=== PATIENT | male | born 1930 | race African-American/Black ===

== ENCOUNTER 2016-07-25 18:01 | Emergency (ER) | payer MEDICARE ==
--- NOTE | 2016-07-25 18:07 | ER Document Report ---
ED Medical Screen (RME) - General Stated Complaint: URINARY ISSUE Mode of Arrival: Ambulatory Information source: Patient Notes: Patient presents with c/o hematuria, groin pain, cough. Reports vomiting at night. History of HTN. Niece reports large amount of blood on toilet seat and this am had blood on his pants. Patient points to groin area when asked where he is hurting. I have greeted and performed a rapid initial assessment of this patient. A comprehensive ED assessment and evaluation of the patient, analysis of test results and completion of the medical decision making process will be conducted by additional ED providers.
[2016-07-25 18:45] LABS: ABSOLUTE LYMPHOCYTES (AUTO) 0.9 10^3/uL (0.5-4.7); ABSOLUTE MONOCYTES (AUTO) 0.8 10^3/uL (0.1-1.4); ABSOLUTE NEUT (AUTO) 11.8 10^3/uL (1.7-8.2); BASOPHILS % (AUTO) 0.2 % (0-2); HEMATOCRIT 35.6 % (37.9-51.0); HEMOGLOBIN 12.2 g/dL (13.5-17.0); LYMPHOCYTES % (AUTO) 6.4 % (13-45); MEAN CORPUSCULAR HEMOGLOBIN 30.3 pg (27.0-33.4); MEAN CORPUSCULAR HGB CONC 34.2 g/dL (32.0-36.0); MEAN CORPUSCULAR VOLUME 89 fl (80-97); MONOCYTES % (AUTO) 6.1 % (3-13); RED BLOOD COUNT 4.03 10^6/uL (4.35-5.55); RED CELL DISTRIBUTION WIDTH 16.2 % (11.5-14.0); SEGMENTED NEUTROPHILS % (AUTO) 87.3 % (42-78); WHITE BLOOD COUNT 13.5 10^3/uL (4.0-10.5)
[2016-07-25 18:59] LABS: ALANINE AMINOTRANSFERASE 23 U/L (21-72); ALBUMIN 3.8 g/dL (3.5-5.0); ALKALINE PHOSPHATASE 80 U/L (38-126); ASPARTATE AMINO TRANSFERASE 39 U/L (17-59); BILIRUBIN,TOTAL 1.4 mg/dL (0.2-1.3); BLOOD UREA NITROGEN 49 mg/dL (7-20); CALCIUM 8.6 mg/dL (8.4-10.2); CARBON DIOXIDE 23 mmol/L (22-30); CHLORIDE 105 mmol/L (98-107); CREATININE RESULT 6.36 mg/dL (0.52-1.25); GLUCOSE 133 mg/dL (75-110); POTASSIUM 4.2 mmol/L (3.6-5.0); SODIUM 149.7 mmol/L (137-145); TOTAL PROTEIN 7.7 g/dL (6.3-8.2)
[2016-07-25 19:00] LABS: ANION GAP 22 (5-19)
[2016-07-25] MEDS ORDERED: NORMAL SALINE 1000 ML 1,000 ML IV ONE (19:18)
[2016-07-25] MEDS ORDERED: IPRATROPIUM/ALBUTEROL 0.5-2.5 MG/3 ML AMPUL NEB ONE (19:21)
--- NOTE | 2016-07-25 19:23 | ER Document Report ---
ED General - General Chief Complaint: Urinary Problem Stated Complaint: URINARY ISSUE Time seen by provider: 19:10 Mode of Arrival: Ambulatory Notes: Patient is an 85-year-old male that comes emergency department with chief complaint of blood in his urine, patient complains of lower abdominal pain, patient states he has not had anything to eat or drink for the past 2 days because he didn't feel good. Gypsyece at bedside also states that patient has been complaining of coughing and difficulty breathing since last night. Patient denies any chest pain or current shortness of breath. Niece also states that patient's primary care provider called him on Tuesday and informed them that he should drink more water because his "kidney tests were abnormal". He states that patient lives with them, states that he is supposed to be on Xarelto and amlodipine, he states he is taking the medications that she is unsure. She states that patient is refusing to let them they've him or take care of him recently. TRAVEL OUTSIDE OF THE [place] IN LAST 30 DAYS: No - Related Data Allergies/Adverse Reactions: No Known Allergies Allergy (Verified 07/25/16 23:47) Past Medical History - General Information source: Patient - Social History Smoking Status: Never Smoker Frequency of alcohol use: None Drug Abuse: None Lives with: Family Family History: Reviewed & Not Pertinent - Past Medical History Cardiac Medical History: Reports: Hx Coronary Artery Disease, Hx Hypertension Renal/ Medical History: Denies: Hx Peritoneal Dialysis Review of Systems - Review of Systems Constitutional: See HPI EENT: No symptoms reported Cardiovascular: No symptoms reported Respiratory: See HPI Gastrointestinal: See HPI Genitourinary: See HPI Male Genitourinary: No symptoms reported Musculoskeletal: No symptoms reported Skin: No symptoms reported Hematologic/Lymphatic: No symptoms reported Neurological/Psychological: No symptoms reported Physical Exam - Vital signs Vitals: Temp Pulse Resp BP Pulse Ox 97.8 F 102 H 20 127/81 H 98 07/25/16 18:07 07/25/16 18:07 07/25/16 18:07 07/25/16 18:07 07/25/16 18:07 Interpretation: Normal - General General appearance: Anxious In distress: Mild - Patient appears somewhat uncomfortable - HEENT Head: Normocephalic, Atraumatic Eyes: Normal Conjunctiva: Normal Extraocular movements intact: Yes Eyelashes: Normal Pupils: PERRL Nasal: Normal Mouth/Lips: Normal Mucous membranes: Normal Pharynx: Normal Neck: Normal - Respiratory Respiratory status: No respiratory distress Chest status: Nontender Breath sounds: Normal. No: Decreased air movement, Wheezing Chest palpation: Normal - Cardiovascular Rhythm: Regular, Tachycardia - Borderline Heart sounds: Normal auscultation, S1 appreciated, S2 appreciated Murmur: No - Abdominal Inspection: Normal Distension: Distended Bowel sounds: Normal Tenderness: Tender - Patient is tender with some distention over the lower mid abdomen, otherwise abdominal exam is unremarkable, there is no significant guarding pain or guarding Organomegaly: No organomegaly - Genitourinary Inspection: Other - When I removed patient's pants I noted that there is blood in his underwear, there does not appear to be any sign of trauma over the penis or scrotum, external exam of the inguinal and genital region unremarkable otherwise - Back Back: Nontender. No: Tender, CVA tenderness, Vertebra tenderness - Extremities General upper extremity: Normal inspection, Nontender, Normal strength, Normal temperature General lower extremity: Normal inspection, Nontender, Normal strength, Normal temperature - Neurological Neuro grossly intact: Yes Cognition: Normal Orientation: AAOx4 Rich Coma Scale Eye Opening: Spontaneous Rich Coma Scale Verbal: Oriented Rich Coma Scale Motor: Obeys Commands Rich Coma Scale Total: 15 Speech: Normal Motor strength normal: LUE, RUE, LLE, RLE Sensory: Normal - Psychological Associated symptoms: Normal affect, Normal mood - Skin Skin Temperature: Warm Skin Moisture: Dry Skin Color: Normal Course - Re-evaluation Re-evalutation: Patient with mildly distended and significantly tender lower abdomen. Patient did give small amount of urine, shows large amount of blood cells and red blood cells. Mild leukocytosis at 13.5, patient mildly tachycardic, no fever, no hypotension. EKG shows P waves, somewhat irregular, no T-wave inversion or ST segment change in consecutive leads, patient not complaining of chest pain, troponin is elevated but patient is in acute renal failure. Chest x-ray is clear. Chemistry shows acute renal failure suspected (unsure of previous labs but family deny hx of renal disease). CT pending. CT shows obstructive uropathy with bladder calculi, enlarged prostate, bilateral hydronephrosis and hydroureter. Patient has been given Rocephin, giving Levaquin as well, patient was discussed with Dr. Perez. Recommends transfer to facility with urology coverage, we have no coverage for the next couple of days. I was able to personally place a 12 Japanese coud Berry catheter, a few blood clots past, very large output of urine which is dark in color. Additional culture sent. 07/26/16 11:15 Discussed with family and patient, they specifically request [facility] transfer. Patient is much more comfortable now, resting calmly, not tachycardic. Called transfer center, pending call back. Discussed with Dr. Post, patient will be accepted in transfer, accepting physician will be Dr. Kirk. 07/26/16 02:13 Patient reevaluated at bedside, no current complaints, states he still feels much improved, blood pressure and heart rate in normal ranges. Stable for transfer. - Vital Signs Vital signs: Temp Pulse Resp BP Pulse Ox 99.5 F 91 16 119/79 98 07/26/16 02:07 07/26/16 01:30 07/26/16 02:01 07/26/16 02:01 07/26/16 02:02 - Laboratory Result Diagrams: 07/25/16 18:25 07/25/16 18:25 Laboratory results interpreted by me: 07/25/16 07/25/16 07/25/16 18:25 18:25 18:25 WBC 13.5 H RBC 4.03 L Hgb 12.2 L Hct 35.6 L RDW 16.2 H Seg Neutrophils % 87.3 H Lymphocytes % 6.4 L Absolute Neutrophils 11.8 H Sodium 149.7 H Anion Gap 22 H BUN 49 H Creatinine 6.36 H Est GFR ( Amer) 10 L Est GFR (Non-Af Amer) 8 L Glucose 133 H Total Bilirubin 1.4 H Creatine Kinase Urine Protein 100 H Urine Blood LARGE H Ur Leukocyte Esterase LARGE H 07/25/16 18:25 WBC RBC Hgb Hct RDW Seg Neutrophils % Lymphocytes % Absolute Neutrophils Sodium Anion Gap BUN Creatinine Est GFR ( Amer) Est GFR (Non-Af Amer) Glucose Total Bilirubin Creatine Kinase 247 H Urine Protein Urine Blood Ur Leukocyte Esterase Critical Care Note - Critical Care Note Total time excluding time spent on procedures (mins): 34 - obstructive uropathy , acute renal failure, urinary tract infection, tachycardia Comments: Please allow 34 minutes of critical care time excluding any procedures for evaluation and treatment of patient with obstructive uropathy, acute renal failure, urinary tract infection, tachycardia. Treatment with antibiotics, fluids, discussion with family, multiple re-evaluations, consultation and transfer to tertiary care center. Discharge - Discharge Clinical Impression: Urinary (tract) obstruction Abdominal pain Qualifiers: Abdominal location: lower abdomen, unspecified Qualified Code(s): R10.30 - Lower abdominal pain, unspecified Acute renal failure Qualifiers: Acute renal failure type: unspecified Qualified Code(s): N17.9 - Acute kidney failure, unspecified Urinary tract infection Qualifiers: Urinary tract infection type: site unspecified Hematuria presence: with hematuria Qualified Code(s): N39.0 - Urinary tract infection, site not specified Condition: Stable Disposition: [facility] Referrals: JENA BUTLER PA-C [Primary Care Provider] - Follow up as needed
[2016-07-25 19:44] LABS: AMORPHOUS SEDIMENT,URINE TRACE /HPF; APPEARANCE,URINE CLOUDY; BILIRUBIN,URINE NEGATIVE (NEGATIVE); GLUCOSE, URINE NEGATIVE (NEGATIVE); KETONES,URINE NEGATIVE (NEGATIVE); LEUKOCYTE ESTERASE,URINE LARGE (NEGATIVE); NITRITE,URINE NEGATIVE (NEGATIVE); PROTEIN,URINE 100 mg/dL (NEGATIVE); URINE SPECIFIC GRAVITY 1.005; UROBILINOGEN,URINE NEGATIVE mg/dL (<2.0)
--- NOTE | 2016-07-25 20:19 | EKG REPORT ---
SEVERITY:- ABNORMAL ECG - SINUS RHYTHM CONSIDER ANTEROSEPTAL INFARCT : Confirmed by: Danielle Cullen 25-Jul-2016 20:19:18
[2016-07-25] MEDS ORDERED: CEFTRIAXONE 1 GM/D5W RTU 50 ML IV ONE (21:16)
[2016-07-25] MEDS ORDERED: LEVOFLOXACIN 750 MG/D5W RTU 150 ML IV ONE (22:21)
[2016-07-25] MEDS ORDERED: LIDOCAINE 2% URO-JET 5 ML KIT MM ONE (22:26)
[2016-07-26] MEDS ORDERED: NORMAL SALINE 1000 ML 1,000 ML IV PRN (01:25)
[2016-07-26 02:07] VITALS: BP 119/79
== END 2016-07-26 02:28 | disposition short-term general hospital (02) ==
LOC: ER 18:01
DX: N13.9 Obstructive and reflux uropathy, unspecified (principal); N39.0 Urinary tract infection, site not specified; N17.9 Acute kidney failure, unspecified; R39.198 Other difficulties with micturition; R10.30 Lower abdominal pain, unspecified
CPT/HCPCS: 93005; 94640; 99291; 96361; 51702; 96365; 96367; 36415; 87040; 87086; 82553; 82550; 84300; 85025; 87088; 80053; 81001; 84484; 87186; 71020; 74176; 93010; J7030 ×2; J0696; J1956; A9270 ×2; J3490; J7620

== ENCOUNTER 2016-08-15 16:49 | Inpatient (IN) | payer MEDICARE ==
[2016-08-15] MEDS ORDERED: LIDOCAINE 2% URO-JET 5 ML KIT MM ONE (17:03)
--- NOTE | 2016-08-15 17:14 | ER Document Report ---
ED GI/ - General Chief Complaint: Urinary Problem Stated Complaint: KILLIAN PROBLEM Mode of Arrival: Medic Information source: Outside Facility Records Cannot obtain history due to: Dementia Notes: Patient was found by nursing staff at [facility] after pulling out his Killian catheter. They noticed some blood to his diaper and swelling to his penis. Patient has a history of dementia. TRAVEL OUTSIDE OF THE [place] IN LAST 30 DAYS: No - HPI Patient complains to provider of: Killian catheter problem. No: Vomiting Onset: This morning Pain Level: 3 Location: Other - Penis Associated symptoms: Hematuria, Urinary retention. denies: Blood in emesis, Blood in stool, Fever, Nausea, Vomiting Exacerbated by: Denies Relieved by: Denies Recently seen / treated by doctor: Yes - Related Data Allergies/Adverse Reactions: tape Adverse Reaction (Uncoded 08/15/16 17:00) Past Medical History - General Information source: Transfer Record Cannot obtain history due to: Dementia - Social History Smoking Status: Never Smoker Frequency of alcohol use: None Drug Abuse: None Lives with: [facility] Family History: Reviewed & Not Pertinent - Medical History Medical History: Other - Dementia - Past Medical History Cardiac Medical History: Reports: Hx Atrial Fibrillation, Hx Coronary Artery Disease, Hx Hypercholesterolemia, Hx Hypertension Renal/ Medical History: Reports: Hx Benign Prostatic Hyperplasia. Denies: Hx Peritoneal Dialysis Review of Systems - Review of Systems -: Yes ROS unobtainable due to patient's medical condition - History of dementia Physical Exam - Vital signs Vitals: Temp Pulse Resp BP Pulse Ox 97.7 F 67 18 146/95 H 100 08/15/16 17:11 08/15/16 17:11 08/15/16 17:11 08/15/16 17:11 08/15/16 17:11 - General General appearance: Alert In distress: Mild - HEENT Head: Normocephalic, Atraumatic Nasal: Normal Mouth/Lips: Normal Mucous membranes: Normal Neck: Normal, Supple. No: Lymphadenopathy - Respiratory Respiratory status: No respiratory distress Chest status: Nontender Breath sounds: Normal Chest palpation: Normal - Cardiovascular Rhythm: Regular Heart sounds: S1 appreciated, S2 appreciated Murmur: No - Abdominal Inspection: Other - Some abdominal distention Distension: Distended Bowel sounds: Normal Tenderness: Nontender - Genitourinary Inspection: Blood at meatus, Other - Penile swelling Scrotum: Swelling - Extremities General upper extremity: Edema - 1+, Normal strength General lower extremity: Edema - 2-3+, Normal strength - Neurological Cognition: Confused Rich Coma Scale Eye Opening: Spontaneous [place] Coma Scale Verbal: Confused Rich Coma Scale Motor: Obeys Commands [place] Coma Scale Total: 14 - Skin Skin Temperature: Warm Skin Color: Pale Irregularity with: Weeping - To bilateral ankles Course - Re-evaluation Re-evalutation: 08/15/16 17:[address] Louis regarding patient presentation and diagnostic evaluation. 08/15/16 19:[address] Louis regarding patient's H&H. Hemoccult obtained. Additional labs ordered. Dr. Louis advises placing patient on Zosyn and Levaquin to treat for likely right lower lobe pneumonia due to new effusion noted on chest film that was not present there at his previous ER visit 2 weeks ago. 08/15/16 19:43 Bedside report and handoff given to Francisco Mir [employer]IAN - Vital Signs Vital signs: Temp Pulse Resp BP Pulse Ox 97.7 F 67 18 146/95 H 98 08/15/16 17:11 08/15/16 17:11 08/15/16 17:11 08/15/16 17:11 08/15/16 19:18 - Laboratory Result Diagrams: 08/15/16 18:43 08/15/16 18:43 Laboratory results interpreted by me: 08/15/16 08/15/16 17:30 18:43 RBC 2.50 L Hgb 7.9 L Hct 22.6 L RDW 16.5 H Urine Protein 30 H Urine Blood LARGE H Ur Leukocyte Esterase LARGE H Labs- Entire Visit 08/15/16 08/15/16 08/15/16 17:30 18:43 18:43 WBC 9.3 RBC 2.50 L Hgb 7.9 L Hct 22.6 L MCV 91 MCH 31.6 MCHC 34.9 RDW 16.5 H Plt Count 232 Seg Neutrophils % 75.0 Lymphocytes % 14.6 Monocytes % 8.6 Eosinophils % 1.2 Basophils % 0.6 Absolute Neutrophils 7.0 Absolute Lymphocytes 1.4 Absolute Monocytes 0.8 Absolute Eosinophils 0.1 Absolute Basophils 0.1 Sodium Cancelled Potassium Cancelled Chloride Cancelled Carbon Dioxide Cancelled Anion Gap Cancelled BUN Cancelled Creatinine Cancelled Est GFR ( Amer) Cancelled Est GFR (Non-Af Amer) Cancelled Glucose Cancelled Calcium Cancelled Total Bilirubin Cancelled Direct Bilirubin Cancelled Indirect Bilirubin Cancelled Neonat Total Bilirubin Cancelled AST Cancelled ALT Cancelled Alkaline Phosphatase Cancelled NT-Pro-B Natriuret Pep Total Protein Cancelled Albumin Cancelled Urine Color YELLOW Urine Appearance SLIGHTLY-CLOUDY Urine pH 6.0 Ur Specific [place] 1.009 Urine Protein 30 H Urine Glucose (UA) NEGATIVE Urine Ketones NEGATIVE Urine Blood LARGE H Urine Nitrite NEGATIVE Urine Bilirubin NEGATIVE Urine Urobilinogen NEGATIVE Ur Leukocyte Esterase LARGE H Urine WBC (Auto) 45 Urine RBC (Auto) >182 Urine Bacteria (Auto) TRACE Squamous Epi Cells Auto <1 Urine Mucus (Auto) RARE Urine Ascorbic Acid NEGATIVE 08/15/16 18:43 WBC RBC Hgb Hct MCV MCH MCHC RDW Plt Count Seg Neutrophils % Lymphocytes % Monocytes % Eosinophils % Basophils % Absolute Neutrophils Absolute Lymphocytes Absolute Monocytes Absolute Eosinophils Absolute Basophils Sodium Potassium Chloride Carbon Dioxide Anion Gap BUN Creatinine Est GFR ( Amer) Est GFR (Non-Af Amer) Glucose Calcium Total Bilirubin Direct Bilirubin Indirect Bilirubin Neonat Total Bilirubin AST ALT Alkaline Phosphatase NT-Pro-B Natriuret Pep Cancelled Total Protein Albumin Urine Color Urine Appearance Urine pH Ur Specific [place] Urine Protein Urine Glucose (UA) Urine Ketones Urine Blood Urine Nitrite Urine Bilirubin Urine Urobilinogen Ur Leukocyte Esterase Urine WBC (Auto) Urine RBC (Auto) Urine Bacteria (Auto) Squamous Epi Cells Auto Urine Mucus (Auto) Urine Ascorbic Acid
[2016-08-15 17:45] LABS: APPEARANCE,URINE SLIGHTLY-CLOUDY; BILIRUBIN,URINE NEGATIVE (NEGATIVE); GLUCOSE, URINE NEGATIVE (NEGATIVE); KETONES,URINE NEGATIVE (NEGATIVE); LEUKOCYTE ESTERASE,URINE LARGE (NEGATIVE); NITRITE,URINE NEGATIVE (NEGATIVE); PROTEIN,URINE 30 mg/dL (NEGATIVE); URINE SPECIFIC GRAVITY 1.009; UROBILINOGEN,URINE NEGATIVE mg/dL (<2.0)
[2016-08-15 18:59] LABS: ABSOLUTE BASOPHILS # (AUTO) 0.1 10^3/uL (0.0-0.2); ABSOLUTE EOSINOPHILS # (AUTO) 0.1 10^3/uL (0.0-0.6); ABSOLUTE LYMPHOCYTES (AUTO) 1.4 10^3/uL (0.5-4.7); ABSOLUTE MONOCYTES (AUTO) 0.8 10^3/uL (0.1-1.4); BASOPHILS % (AUTO) 0.6 % (0-2); EOSINOPHILS % (AUTO) 1.2 % (0-6); HEMATOCRIT 22.6 % (37.9-51.0); HEMOGLOBIN 7.9 g/dL (13.5-17.0); HGB HCT DIFFERENCE 1.1; LYMPHOCYTES % (AUTO) 14.6 % (13-45); MEAN CORPUSCULAR HEMOGLOBIN 31.6 pg (27.0-33.4); MEAN CORPUSCULAR HGB CONC 34.9 g/dL (32.0-36.0); MEAN CORPUSCULAR VOLUME 91 fl (80-97); MONOCYTES % (AUTO) 8.6 % (3-13); RED CELL DISTRIBUTION WIDTH 16.5 % (11.5-14.0); WHITE BLOOD COUNT 9.3 10^3/uL (4.0-10.5)
[2016-08-15] MEDS ORDERED: LEVOFLOXACIN 500 MG/D5W RTU 100 ML IV ONE (19:35)
[2016-08-15] MEDS ORDERED: PIPERACILLIN/TAZOBACTAM 3.375 GM VIAL IV ONE (19:35)
[2016-08-15 19:56] LABS: ALANINE AMINOTRANSFERASE 66 U/L (21-72); ALBUMIN 2.9 g/dL (3.5-5.0); ALKALINE PHOSPHATASE 129 U/L (38-126); ANION GAP 15 (5-19); ASPARTATE AMINO TRANSFERASE 33 U/L (17-59); BILIRUBIN,DIRECT 0.3 mg/dL (0.0-0.4); BILIRUBIN,TOTAL 0.6 mg/dL (0.2-1.3); BLOOD UREA NITROGEN 19 mg/dL (7-20); CALCIUM 8.6 mg/dL (8.4-10.2); CARBON DIOXIDE 22 mmol/L (22-30); CHLORIDE 103 mmol/L (98-107); CREATININE RESULT 0.86 mg/dL (0.52-1.25); GLUCOSE 95 mg/dL (75-110); POTASSIUM 4.6 mmol/L (3.6-5.0); SODIUM 140.1 mmol/L (137-145); TOTAL PROTEIN 6.2 g/dL (6.3-8.2)
[2016-08-15 19:57] LABS: PARTIAL THROMBOPLASTIN TIME 28.8 SEC (23.5-35.8); PROTHROMBIN TIME 14.1 SEC (11.4-15.4)
--- NOTE | 2016-08-15 21:14 | EKG REPORT ---
SEVERITY:- ABNORMAL ECG - SINUS RHYTHM FIRST DEGREE AV BLOCK LOW VOLTAGE IN FRONTAL LEADS CONSIDER ANTEROSEPTAL INFARCT BORDERLINE PROLONGED QT INTERVAL : Confirmed by: Emily Nunez MD 15-Aug-2016 21:12:23
[2016-08-15] MEDS ORDERED: FUROSEMIDE INJ/PF 40 MG/4 ML SDV IV ONE (21:32)
[2016-08-15] MEDS ORDERED: FUROSEMIDE INJ/PF 20 MG/2 ML SDV IV ONE (21:32)
[2016-08-15] MEDS ORDERED: LACTULOSE SYRUP 20 GM/30 ML UDCUP PO ONE (21:32)
[2016-08-15] MEDS ORDERED: LACTULOSE SYRUP 20 GM/30 ML UDCUP PR ONE (21:52)
[2016-08-15] MEDS ORDERED: OLANZAPINE INJ/PF 10 MG SDV IM ONE (22:15)
[2016-08-15] MEDS ORDERED: DIAZEPAM INJ 10 MG/2 ML DISP.SYRIN IV PRN (22:17)
[2016-08-15] MEDS ORDERED: ACETAMINOPHEN 325 MG TABLET PO PRN (22:18)
[2016-08-15] MEDS ORDERED: IPRATROPIUM/ALBUTEROL 0.5-2.5 MG/3 ML AMPUL NEB PRN (22:18)
[2016-08-15] MEDS ORDERED: MAGNESIUM HYDROXIDE SUSP 30 ML UDCUP PO PRN (22:18)
--- NOTE | 2016-08-15 22:38 | PDOC H&P ---
History of Present Illness Admission Date/PCP: JENA BUTLER PA-C Patient complains of: Edema History of Present Illness: YAMILE EDMOND is a 85 year old male with an unclear past medical history given dementia who is a long-term senior care resident of [facility], who is noted by staff to have pulled out his Berry resulting in gross hematuria and penile swelling. He is brought to the emergency room for evaluation where his found to have anasarca, anemia, urinary tract infection and severe delirium requiring restraints. A new functioning Berry catheter is placed and is referred to the hospitalist for admission. Patient denies any complaints but is severely delirious stating he is late for work. Past Medical History Past Medical History: Unobtainable as the patient is delirious Cardiac Medical History: Reports: Atrial Fibrillation, Coronary Artery Disease, Hyperlipidema, Hypertension Past Surgical History Past Surgical History: Unknown Social History Information Source: [facility] Records - jail resident of [facility] otherwise unknown Lives with: [facility] Smoking Status: Never Smoker - Advance Directive Resuscitation Status: Full Code - Patient is presumed full code no documentation and delirious Family History Family History: Other - Unobtainable Parental Family History Reviewed: Yes - unobtainable Children Family History Reviewed: Yes - Unobtainable Sibling(s) Family History Reviewed.: Yes - Unobtainable Medication/Allergy Allergies/Adverse Reactions: tape Adverse Reaction (Uncoded 08/15/16 17:00) Review of Systems ROS unobtainable: Due to mental status Physical Exam Vital Signs: Temp Pulse Resp BP Pulse Ox 97.7 F 67 20 119/89 H 96 08/15/16 17:11 08/15/16 17:11 08/15/16 21:01 08/15/16 21:01 08/15/16 21:01 Intake & Output 08/14/16 08/15/16 08/16/16 11:59 11:59 11:59 Weight 95.254 kg General appearance: PRESENT: no acute distress, obese. ABSENT: cooperative, disheveled Head exam: PRESENT: atraumatic, normocephalic Eye exam: PRESENT: conjunctiva pink, EOMI, PERRLA. ABSENT: scleral icterus Ear exam: PRESENT: normal external ear exam Mouth exam: PRESENT: moist, tongue midline Neck exam: ABSENT: carotid bruit, JVD, lymphadenopathy, thyromegaly Respiratory exam: PRESENT: crackles, decreased breath sounds, symmetrical. ABSENT: accessory muscle use, rales, retraction, rhonchi, wheezes Cardiovascular exam: PRESENT: RRR, +S1. ABSENT: systolic murmur, tachycardia Pulses: PRESENT: normal dorsalis pedis pul Vascular exam: PRESENT: pallor GI/Abdominal exam: PRESENT: diminished bowel sounds, distended, hypoactive bowel sounds, soft, tenderness - Left lower quadrant pain and suprapubic fullness. ABSENT: guarding, Escamilla's sign, normal bowel sounds, organolmegaly, rebound, rigid Rectal exam: PRESENT: deferred Gentrourinary exam: PRESENT: scrotal swelling, indwelling catheter, other - +3 penile and scrotal swelling minimal urethral blood Extremities exam: PRESENT: full ROM, pedal edema, +2 edema. ABSENT: calf tenderness, joint swelling Neurological exam: PRESENT: alert, altered, awake, oriented to person, CN II- XII grossly intact. ABSENT: motor sensory deficit Psychiatric exam: PRESENT: agitated Skin exam: PRESENT: dry, intact, warm. ABSENT: cyanosis, rash Results Laboratory Results: 08/15/16 18:43 08/15/16 19:30 08/15/16 08/15/16 08/15/16 17:30 18:43 18:43 WBC 9.3 RBC 2.50 L Hgb 7.9 L Hct 22.6 L MCV 91 MCH 31.6 MCHC 34.9 RDW 16.5 H Plt Count 232 Seg Neutrophils % 75.0 Lymphocytes % 14.6 Monocytes % 8.6 Eosinophils % 1.2 Basophils % 0.6 Absolute Neutrophils 7.0 Absolute Lymphocytes 1.4 Absolute Monocytes 0.8 Absolute Eosinophils 0.1 Absolute Basophils 0.1 Retic Count (auto) Absolute Retic Sodium Cancelled Potassium Cancelled Chloride Cancelled Carbon Dioxide Cancelled Anion Gap Cancelled BUN Cancelled Creatinine Cancelled Est GFR ( Amer) Cancelled Est GFR (Non-Af Amer) Cancelled Glucose Cancelled Calcium Cancelled Total Bilirubin Cancelled AST Cancelled ALT Cancelled Alkaline Phosphatase Cancelled Total Protein Cancelled Albumin Cancelled Urine Color YELLOW Urine Appearance SLIGHTLY-CLOUDY Urine pH 6.0 Ur Specific [place] 1.009 Urine Protein 30 H Urine Glucose (UA) NEGATIVE Urine Ketones NEGATIVE Urine Blood LARGE H Urine Nitrite NEGATIVE Ur Leukocyte Esterase LARGE H Urine WBC (Auto) 45 Urine RBC (Auto) >182 Stool Occult Blood Blood Type Antibody Screen 08/15/16 08/15/16 08/15/16 19:30 19:30 19:30 WBC RBC Hgb Hct MCV MCH MCHC RDW Plt Count Seg Neutrophils % Lymphocytes % Monocytes % Eosinophils % Basophils % Absolute Neutrophils Absolute Lymphocytes Absolute Monocytes Absolute Eosinophils Absolute Basophils Retic Count (auto) 2.50 Absolute Retic 0.067 Sodium 140.1 Potassium 4.6 Chloride 103 Carbon Dioxide 22 Anion Gap 15 BUN 19 Creatinine 0.86 Est GFR ( Amer) > 60 Est GFR (Non-Af Amer) > 60 Glucose 95 Calcium 8.6 Total Bilirubin 0.6 AST 33 ALT 66 Alkaline Phosphatase 129 H Total Protein 6.2 L Albumin 2.9 L Urine Color Urine Appearance Urine pH Ur Specific [place] Urine Protein Urine Glucose (UA) Urine Ketones Urine Blood Urine Nitrite Ur Leukocyte Esterase Urine WBC (Auto) Urine RBC (Auto) Stool Occult Blood Blood Type O POSITIVE Antibody Screen NEGATIVE 08/15/16 19:39 WBC RBC Hgb Hct MCV MCH MCHC RDW Plt Count Seg Neutrophils % Lymphocytes % Monocytes % Eosinophils % Basophils % Absolute Neutrophils Absolute Lymphocytes Absolute Monocytes Absolute Eosinophils Absolute Basophils Retic Count (auto) Absolute Retic Sodium Potassium Chloride Carbon Dioxide Anion Gap BUN Creatinine Est GFR ( Amer) Est GFR (Non-Af Amer) Glucose Calcium Total Bilirubin AST ALT Alkaline Phosphatase Total Protein Albumin Urine Color Urine Appearance Urine pH Ur Specific [place] Urine Protein Urine Glucose (UA) Urine Ketones Urine Blood Urine Nitrite Ur Leukocyte Esterase Urine WBC (Auto) Urine RBC (Auto) Stool Occult Blood NEGATIVE Blood Type Antibody Screen 08/15/16 08/15/16 18:43 19:30 NT-Pro-B Natriuret Pep Cancelled 2970 H Impressions: Acute Abdomen Series 08/15/16 17:07 IMPRESSION: NONSPECIFIC BOWEL GAS PATTERN WITHOUT EVIDENCE FOR OBSTRUCTION. Assessment & Plan - Diagnosis (1) Urinary tract infection Is this a current diagnosis for this admission?: YesPlan: Likely secondary to Klebsiella given recent culture with persistent hematuria, repeat urine culture pending he is on empiric Levaquin follow-up CBC (2) Anasarca Is this a current diagnosis for this admission?: YesPlan: Likely multifactorial secondary to malnutrition and hypoalbuminemia as well as congestive heart failure he'll receive a trial of IV Lasix with evaluation of thyroid function and albumin with prealbumin level (3) Anemia Qualifiers: Anemia type: iron deficiency Is this a current diagnosis for this admission?: YesPlan: Likely iron deficient I'll evaluate anemia studies and follow-up CBC (4) Constipation Is this a current diagnosis for this admission?: YesPlan: Significant obstipation on exam supported by imaging, he'll have a trial of lactulose by mouth and MO. I suspect the patient has poor by mouth intake secondary to obstipation contributing to malnutrition (5) Delirium Is this a current diagnosis for this admission?: YesPlan: Strongly suspect underlying dementia medical records unavailable prolonged QT interval he'll receive Valium and restraints when necessary (6) Malnutrition Is this a current diagnosis for this admission?: YesPlan: Evaluated prealbumin level and consider Nicole protein - Time Time Spent: 50 to 70 Minutes
[2016-08-15 23:22] LABS: FOLATE 3.22 ng/mL (>2.76)
[2016-08-16] MEDS ORDERED: LACTULOSE SYRUP 20 GM/30 ML UDCUP ONE (00:14)
[2016-08-16 05:00] LABS: ABSOLUTE EOSINOPHILS # (AUTO) 0.1 10^3/uL (0.0-0.6); ABSOLUTE MONOCYTES (AUTO) 0.8 10^3/uL (0.1-1.4); BASOPHILS % (AUTO) 0.6 % (0-2); EOSINOPHILS % (AUTO) 0.7 % (0-6); HEMATOCRIT 27.8 % (37.9-51.0); HEMOGLOBIN 9.8 g/dL (13.5-17.0); HGB HCT DIFFERENCE 1.6; LYMPHOCYTES % (AUTO) 12.4 % (13-45); MEAN CORPUSCULAR HEMOGLOBIN 31.9 pg (27.0-33.4); MEAN CORPUSCULAR HGB CONC 35.2 g/dL (32.0-36.0); MEAN CORPUSCULAR VOLUME 91 fl (80-97); MONOCYTES % (AUTO) 9.9 % (3-13); RED BLOOD COUNT 3.07 10^6/uL (4.35-5.55); RED CELL DISTRIBUTION WIDTH 16.7 % (11.5-14.0); SEGMENTED NEUTROPHILS % (AUTO) 76.4 % (42-78); WHITE BLOOD COUNT 7.8 10^3/uL (4.0-10.5)
[2016-08-16 05:16] LABS: ANION GAP 13 (5-19); BLOOD UREA NITROGEN 17 mg/dL (7-20); CALCIUM 8.9 mg/dL (8.4-10.2); CARBON DIOXIDE 28 mmol/L (22-30); CHLORIDE 104 mmol/L (98-107); CREATININE RESULT 0.85 mg/dL (0.52-1.25); GLUCOSE 87 mg/dL (75-110); SODIUM 144.9 mmol/L (137-145)
[2016-08-16] MEDS: HEPARIN SOD (PORCINE) 5,000 UNIT/ML 1 ML SYRINGE SUBCUT SCH ×3 (06:12→22:49)
[2016-08-16] MEDS ORDERED: CYANOCOBALAMIN (VITAMIN B-12) INJ 1000 MCG/1 ML VIAL IM ONE (08:00)
[2016-08-16] MEDS: CYANOCOBALAMIN (VITAMIN B-12) 1,000 MCG TABLET PO SCH (08:57)
[2016-08-16] MEDS ORDERED: DOCUSATE SODIUM 100 MG CAPSULE PO SCH (10:00)
--- NOTE | 2016-08-16 13:26 | PDOC PROGRESS REPORT ---
Subjective Progress Note for:: 08/16/16 Subjective:: The patient was seen earlier today on rounds. The patient is awake alert appears comfortable but is unable to provide any specific history. There've been no reported episodes of vomiting nor diarrhea. The patient has made over 3 liters of urine. Physical Exam Vital Signs: Temp Pulse Resp BP Pulse Ox 97.6 F 75 16 130/68 H 100 08/16/16 08:13 08/16/16 08:13 08/16/16 08:13 08/16/16 08:13 08/16/16 08:13 Intake & Output 08/14/16 08/15/16 08/16/16 23:59 23:59 23:59 Intake Total 0 Output Total 3200 Balance -3200 Weight 97.8 kg General appearance: PRESENT: no acute distress, obese. ABSENT: cooperative, disheveled Head exam: PRESENT: atraumatic, normocephalic Eye exam: PRESENT: conjunctiva pink, EOMI, PERRLA. ABSENT: scleral icterus Ear exam: PRESENT: normal external ear exam Mouth exam: PRESENT: moist, tongue midline Neck exam: ABSENT: carotid bruit, JVD, lymphadenopathy, thyromegaly Respiratory exam: PRESENT: crackles, decreased breath sounds, symmetrical. ABSENT: accessory muscle use, rales, retraction, rhonchi, wheezes Cardiovascular exam: PRESENT: RRR, +S1. ABSENT: systolic murmur, tachycardia Pulses: PRESENT: normal dorsalis pedis pul Vascular exam: PRESENT: pallor GI/Abdominal exam: PRESENT: diminished bowel sounds, distended, hypoactive bowel sounds, soft, tenderness - Left lower quadrant pain and suprapubic fullness. ABSENT: guarding, Escamilla's sign, normal bowel sounds, organolmegaly, rebound, rigid Rectal exam: PRESENT: deferred Gentrourinary exam: PRESENT: scrotal swelling, indwelling catheter, other - +3 penile and scrotal swelling minimal urethral blood Extremities exam: PRESENT: full ROM, pedal edema, +2 edema. ABSENT: calf tenderness, joint swelling Neurological exam: PRESENT: alert, altered, awake, oriented to person, CN II- XII grossly intact. ABSENT: motor sensory deficit Psychiatric exam: PRESENT: agitated Skin exam: PRESENT: dry, intact, warm. ABSENT: cyanosis, rash Results Laboratory Results: 08/16/16 04:45 08/16/16 04:45 08/15/16 08/16/16 08/16/16 23:18 04:45 04:45 WBC 7.8 RBC 3.07 L Hgb 9.8 L Hct 27.8 L MCV 91 MCH 31.9 MCHC 35.2 RDW 16.7 H Plt Count 209 Seg Neutrophils % 76.4 Lymphocytes % 12.4 L Monocytes % 9.9 Eosinophils % 0.7 Basophils % 0.6 Absolute Neutrophils 6.0 Absolute Lymphocytes 1.0 Absolute Monocytes 0.8 Absolute Eosinophils 0.1 Absolute Basophils 0.0 Sodium 144.9 Potassium 4.0 Chloride 104 Carbon Dioxide 28 Anion Gap 13 BUN 17 Creatinine 0.85 Est GFR ( Amer) > 60 Est GFR (Non-Af Amer) > 60 Glucose 87 Lactic Acid 1.3 Calcium 8.9 Impressions: Acute Abdomen Series 08/15/16 17:07 IMPRESSION: NONSPECIFIC BOWEL GAS PATTERN WITHOUT EVIDENCE FOR OBSTRUCTION. Assessment & Plan - Diagnosis (1) Urinary retention Is this a current diagnosis for this admission?: YesPlan: The patient's Berry has been replaced he is making a good amount of urine. Have resumed home meds. (2) Anasarca Is this a current diagnosis for this admission?: YesPlan: This is has been improving. Will continue to monitor this. (3) Malnutrition Is this a current diagnosis for this admission?: Yes (4) Constipation Qualifiers: Constipation type: slow transit constipation Qualified Code(s): K59.01 - Slow transit constipation Is this a current diagnosis for this admission?: Yes (5) Hypertension Qualifiers: Hypertension type: essential hypertension Qualified Code(s): I10 - Essential (primary) hypertension Is this a current diagnosis for this admission?: YesPlan: Will continue home medications. (6) Iron deficiency anemia Qualifiers: Iron deficiency anemia type: inadequate dietary iron intake Qualified Code(s): D50.8 - Other iron deficiency anemias Is this a current diagnosis for this admission?: Yes (7) Benign prostatic hyperplasia Qualifiers: Prostatic enlargement morphology: unspecified morphology Lower urinary tract symptom presence: symptoms present Qualified Code(s): N40.1 - Benign prostatic hyperplasia with lower urinary tract symptoms Is this a current diagnosis for this admission?: Yes - Time Time Spent with patient: 35 or more minutes Medications reviewed and adjusted accordingly: Yes Anticipated discharge: SNF Within: within 24 hours, within 48 hours
[2016-08-16] MEDS ORDERED: AMLODIPINE BESYLATE 5 MG TABLET PO ONE (13:30)
--- NOTE | 2016-08-16 14:56 | Physician Advisory Note ---
Physician Advisor ProgressNote .: Pursuant to the [facility], I have reviewed the medical record for this patient. Physician Advisor Statement: Possible documentation opportunities if attending agrees: 1. "Anemia of Acute Blood Loss due to Berry trauma" [Hgb was 12.2 on 07/25, pulled out Berry & had hematuria, Hgb 7.9 on arrival) 2. "chronic Anemia of both nutritional B12 defic & nutritional Fe defic" 3. "chronic Afib" [or is it paroxysmal Afib?] 4. 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 ? - "possible RLL pneumonia, may be gram-negative" or "atelectasis RLL" or "acute ___ type CHF", or ... - ? 6. "LLQ abd pain/tenderness, likely due to " (see below) 7. Please document explicitly whether pt is still not close to baseline in 1 or more ways, to confirm need for continued hospital care. 8. Principal Dx - please be sure to list as #1 in each note the main reason pt required adm. As always, if concerned about any unstable VS or abnormal labs, please comment on them & note what doing about them, & please document each day the potential clinical problems you are concerned could occur if pt not kept in hospital for tx at this time. Discussion: 85yo male w/ chronic co-morbidities including dementia, BPH w/urinary retention , CAD, Afib, - presented 4/2 PM to ED w/blood in diaper, swelling of penis, anasarca, severe delirium requiring restraints, UTI (+) HR 67, RR18, BP 146/95, severe delirium requiring restraints, crackles & decreased breath sounds, LLQ/suprapubic tenderness/fullness, WBC 9.3, Hgb 7.9 ( see above), U BNP 2970, B12 232, /A (++), CXR = new "RLL effusion-subsegmental atelectasis" since 2wks prior ED gave IV Levaquin, IV Zosyn, Lasix 20mg IV x1. Attending ordered Lasix 40mg IV x1, prn Valium, q8h Sub-Q heparin, prn Duoneb, I /Os, daily wts, falls precautions, tele monitoring, O2 2L, Bipap, transfusion, f /u labs. Status: Later in PM, attending had to order Zyprexa x1 & a sitter for continued agitation. Attending was concerned that obstipation was contributing to poor po intake, worsening malnutrition, & ordered lactulose. I/o chart so far indicated 0 BMs yet, & today's attending documents (+) LLQ tenderness/suprapubic fullness still present (?due to constipation or ...). If this is due to acute on chronic constipation that has not sufficiently improved, pt is likely to continue to worsen in malnutrition until it is better controlled. (4/3 AM nursing note indicates (+) BM 4/3 AM of unspecified size.) This AM, noted continued crackles in lungs, "improving" [not "improved"! - there is more diuresis needed!] anasarca, & nursing note indicated continued 3+ generalized pitting edema. Attending has ordered B12 shot, BPH meds, Fe, BP/cardiac meds, f/u labs for AM with continued IV diuresis. Tx in inpatient hospital setting medically reasonable & necessary to protect pt' s health, safety, & medical condition. Appropriate for INpt status. Thanks for your help with documentation accuracy/specificity improvement! Josefina Barbour MD [facility] Physician Advisor, Fellow of Hospital Medicine
[2016-08-16] MEDS ORDERED: DOXAZOSIN MESYLATE 2 MG TABLET PO SCH (22:00)
[2016-08-16] MEDS: METOPROLOL TARTRATE 100 MG TABLET PO SCH (22:49)
[2016-08-17 04:36] LABS: MEAN CORPUSCULAR HEMOGLOBIN 31.5 pg (27.0-33.4); MEAN CORPUSCULAR HGB CONC 34.7 g/dL (32.0-36.0); MEAN CORPUSCULAR VOLUME 91 fl (80-97); RED BLOOD COUNT 2.53 10^6/uL (4.35-5.55); RED CELL DISTRIBUTION WIDTH 16.4 % (11.5-14.0); WHITE BLOOD COUNT 6.1 10^3/uL (4.0-10.5)
[2016-08-17 04:58] LABS: ANION GAP 11 (5-19); BLOOD UREA NITROGEN 12 mg/dL (7-20); CALCIUM 8.2 mg/dL (8.4-10.2); CARBON DIOXIDE 30 mmol/L (22-30); CHLORIDE 103 mmol/L (98-107); CREATININE RESULT 0.83 mg/dL (0.52-1.25); GLUCOSE 83 mg/dL (75-110); MAGNESIUM 1.3 mg/dL (1.6-2.3); POTASSIUM 3.9 mmol/L (3.6-5.0); SODIUM 144.3 mmol/L (137-145)
[2016-08-17] MEDS: HEPARIN SOD (PORCINE) 5,000 UNIT/ML 1 ML SYRINGE SUBCUT SCH ×2 (06:01→14:36)
[2016-08-17] MEDS ORDERED: FINASTERIDE 5 MG TABLET PO SCH (10:00)
[2016-08-17] MEDS ORDERED: DOCUSATE SODIUM 100 MG CAPSULE PO SCH (10:00)
[2016-08-17] MEDS ORDERED: AMLODIPINE BESYLATE 5 MG TABLET PO SCH (10:00)
[2016-08-17] MEDS ORDERED: FERROUS SULFATE 325 MG TABLET PO SCH (10:00)
[2016-08-17] MEDS ORDERED: TAMSULOSIN HCL 0.4 MG CAP.SR.24H PO SCH (10:00)
[2016-08-17] MEDS: CYANOCOBALAMIN (VITAMIN B-12) 1,000 MCG TABLET PO SCH (10:25)
[2016-08-17] MEDS: METOPROLOL TARTRATE 100 MG TABLET PO SCH (10:26)
--- NOTE | 2016-08-17 13:37 | PDOC TRANSFER SUMMARY ---
General - Admit/Disc Date/PCP Admission Date/Primary Care Provider: 08/15/16 22:18 JENA BUTLER PA-C Discharge Date: 08/17/16 - Discharge Diagnosis (1) Urinary retention Is this a current diagnosis for this admission?: YesSummary: Berry malfunctioning (2) Acute blood loss anemia Is this a current diagnosis for this admission?: YesSummary: Secondary to Berry trauma (3) Malnutrition Is this a current diagnosis for this admission?: Yes (4) Constipation Is this a current diagnosis for this admission?: Yes (5) Hypertension Is this a current diagnosis for this admission?: Yes (6) Iron deficiency anemia Is this a current diagnosis for this admission?: Yes (7) Benign prostatic hyperplasia Is this a current diagnosis for this admission?: Yes (8) Chronic atrial fibrillation Is this a current diagnosis for this admission?: Yes - Additional Information Resuscitation Status: Full Code Discharge Diet: Cardiac Discharge Activity: Supervised Activity Home Medications: Amlodipine Besylate [Norvasc 5 mg Tablet] 5 mg PO DAILY 08/16/16 Docusate Sodium [Colace 100 mg Capsule] 200 mg PO DAILY 08/16/16 Doxazosin Mesylate [Cardura 2 mg Tablet] 2 mg PO QPM 08/16/16 Ferrous Sulfate [Feosol 325 mg Tablet] 325 mg PO DAILY 08/16/16 Finasteride [Proscar 5 mg Tablet] 5 mg PO DAILY 08/16/16 Metoprolol Tartrate [Lopressor 100 mg Tablet] 100 mg PO BID 08/16/16 Tamsulosin HCl [Flomax 0.4 mg Cap.sr] 0.4 mg PO DAILY@1800 08/16/16 History of Present Illness Admission Date/PCP: 08/15/16 22:18 JENA BUTLER PA-C Patient complains of: Scrotal edema History of Present Illness: YAMILE EDMOND is a 85 year old male with an unclear past medical history given dementia who is a long-term longterm resident of [facility], who is noted by staff to have pulled out his Berry resulting in gross hematuria and penile swelling. He is brought to the emergency room for evaluation where his found to have anasarca, anemia, urinary tract infection and severe delirium requiring restraints. A new functioning Berry catheter is placed and is referred to the hospitalist for admission. Patient denies any complaints but is severely delirious stating he is late for work. Hospital Course Hospital Course: The patient was admitted to [facility]. The patient's Berry was replaced and the patient began making clear yellow urine. The patient's scrotal and pelvic edema dramatically improved. The patient's urine culture was found to be negative. Patient's white count remained in a normal range. The patient's hemoglobin remained stable as it was 7.9 on admission and 8 at the time of discharge. Patient's mentation is at baseline and is ready for discharge. Given the patient's dementia he is unable to express any concerns at this time. Physical Exam Vital Signs: Temp Pulse Resp BP Pulse Ox 98.5 F 56 L 18 94/51 L 100 08/17/16 12:38 08/17/16 12:38 08/17/16 12:38 08/17/16 12:38 08/17/16 12:38 Intake & Output 08/15/16 08/16/16 08/17/16 23:59 23:59 23:59 Intake Total 1338 861 Output Total 5400 1250 Balance -4062 -389 Weight 97.8 kg 91.5 kg General appearance: PRESENT: no acute distress, obese. ABSENT: cooperative, disheveled Head exam: PRESENT: atraumatic, normocephalic Eye exam: PRESENT: conjunctiva pink, EOMI, PERRLA. ABSENT: scleral icterus Ear exam: PRESENT: normal external ear exam Mouth exam: PRESENT: moist, tongue midline Neck exam: ABSENT: carotid bruit, JVD, lymphadenopathy, thyromegaly Respiratory exam: PRESENT: crackles, decreased breath sounds, symmetrical. ABSENT: accessory muscle use, rales, retraction, rhonchi, wheezes Cardiovascular exam: PRESENT: RRR, +S1. ABSENT: systolic murmur, tachycardia Pulses: PRESENT: normal dorsalis pedis pul Vascular exam: PRESENT: pallor GI/Abdominal exam: PRESENT: diminished bowel sounds, distended, hypoactive bowel sounds, soft, tenderness - Left lower quadrant pain and suprapubic fullness. ABSENT: guarding, Escamilla's sign, normal bowel sounds, organolmegaly, rebound, rigid Rectal exam: PRESENT: deferred Gentrourinary exam: PRESENT: indwelling catheter draining clear yellow urine Extremities exam: PRESENT: full ROM, no edema. ABSENT: calf tenderness, joint swelling Neurological exam: PRESENT: alert, altered, awake, oriented to person, CN II- XII grossly intact. ABSENT: motor sensory deficit Psychiatric exam: PRESENT: Pleasant but confused Skin exam: PRESENT: dry, intact, warm. ABSENT: cyanosis, rash Results Laboratory Results: Labs- Last Values WBC 6.1 10^3/uL (4.0-10.5) 08/17/16 04:20 RBC 2.53 10^6/uL (4.35-5.55) L 08/17/16 04:20 Hgb 8.0 g/dL (13.5-17.0) L 08/17/16 04:20 Hct 23.0 % (37.9-51.0) L 08/17/16 04:20 MCV 91 fl (80-97) 08/17/16 04:20 MCH 31.5 pg (27.0-33.4) 08/17/16 04:20 MCHC 34.7 g/dL (32.0-36.0) 08/17/16 04:20 RDW 16.4 % (11.5-14.0) H 08/17/16 04:20 Plt Count 195 10^3/uL (150-450) 08/17/16 04:20 Seg Neutrophils % 76.4 % (42-78) 08/16/16 04:45 Lymphocytes % 12.4 % (13-45) L 08/16/16 04:45 Monocytes % 9.9 % (3-13) 08/16/16 04:45 Eosinophils % 0.7 % (0-6) 08/16/16 04:45 Basophils % 0.6 % (0-2) 08/16/16 04:45 Absolute Neutrophils 6.0 10^3/uL (1.7-8.2) 08/16/16 04:45 Absolute Lymphocytes 1.0 10^3/uL (0.5-4.7) 08/16/16 04:45 Absolute Monocytes 0.8 10^3/uL (0.1-1.4) 08/16/16 04:45 Absolute Eosinophils 0.1 10^3/uL (0.0-0.6) 08/16/16 04:45 Absolute Basophils 0.0 10^3/uL (0.0-0.2) 08/16/16 04:45 Retic Count (auto) 2.50 % (0.66-2.85) 08/15/16 19:30 Absolute Retic 0.067 10^6/uL (0.028-0.122) 08/15/16 19:30 PT 14.1 SEC (11.4-15.4) 08/15/16 19:30 INR 1.06 08/15/16 19:30 APTT 28.8 SEC (23.5-35.8) 08/15/16 19:30 Sodium 144.3 mmol/L (137-145) 08/17/16 04:20 Potassium 3.9 mmol/L (3.6-5.0) 08/17/16 04:20 Chloride 103 mmol/L (98-107) 08/17/16 04:20 Carbon Dioxide 30 mmol/L (22-30) 08/17/16 04:20 Anion Gap 11 (5-19) 08/17/16 04:20 BUN 12 mg/dL (7-20) 08/17/16 04:20 Creatinine 0.83 mg/dL (0.52-1.25) 08/17/16 04:20 Est GFR ( Amer) > 60 (>60) 08/17/16 04:20 Est GFR (Non-Af Amer) > 60 (>60) 08/17/16 04:20 Glucose 83 mg/dL (75-110) 08/17/16 04:20 Lactic Acid 1.3 mmol/L (0.7-2.1) 08/15/16 23:18 Calcium 8.2 mg/dL (8.4-10.2) L 08/17/16 04:20 Magnesium 1.3 mg/dL (1.6-2.3) L 08/17/16 04:20 Iron 26.5 ug/dL (49-181) L 08/15/16 19:30 TIBC 303 ug/dL (250-450) 08/15/16 19:30 % Saturation 9 % 08/15/16 19:30 Ferritin 74.70 ng/mL (17.9-464.0) 08/15/16 19:30 Total Bilirubin 0.6 mg/dL (0.2-1.3) 08/15/16 19:30 Direct Bilirubin 0.3 mg/dL (0.0-0.4) 08/15/16 19:30 Indirect Bilirubin Not Reportable 08/15/16 19:30 Neonat Total Bilirubin Not Reportable 08/15/16 19:30 AST 33 U/L (17-59) 08/15/16 19:30 ALT 66 U/L (21-72) 08/15/16 19:30 Alkaline Phosphatase 129 U/L (38-126) H 08/15/16 19:30 NT-Pro-B Natriuret Pep 2970 pg/mL (<450) H 08/15/16 19:30 Total Protein 6.2 g/dL (6.3-8.2) L 08/15/16 19:30 Albumin 2.9 g/dL (3.5-5.0) L 08/15/16 19:30 Vitamin B12 232.0 pg/mL (239-931) L 08/15/16 19:30 Folate 3.22 ng/mL (>2.76) 08/15/16 19:30 TSH 2.47 uIU/mL (0.47-4.68) 08/15/16 19:30 Urine Color YELLOW 08/15/16 17:30 Urine Appearance SLIGHTLY-CLOUDY 08/15/16 17:30 Urine pH 6.0 (5.0-9.0) 08/15/16 17:30 Ur Specific [place] 1.009 08/15/16 17:30 Urine Protein 30 mg/dL (NEGATIVE) H 08/15/16 17:30 Urine Glucose (UA) NEGATIVE mg/dL (NEGATIVE) 08/15/16 17:30 Urine Ketones NEGATIVE mg/dL (NEGATIVE) 08/15/16 17:30 Urine Blood LARGE (NEGATIVE) H 08/15/16 17:30 Urine Nitrite NEGATIVE (NEGATIVE) 08/15/16 17:30 Urine Bilirubin NEGATIVE (NEGATIVE) 08/15/16 17:30 Urine Urobilinogen NEGATIVE mg/dL (<2.0) 08/15/16 17:30 Ur Leukocyte Esterase LARGE (NEGATIVE) H 08/15/16 17:30 Urine WBC (Auto) 45 /HPF 08/15/16 17:30 Urine RBC (Auto) >182 /HPF 08/15/16 17:30 Urine Bacteria (Auto) TRACE /HPF 08/15/16 17:30 Squamous Epi Cells Auto <1 /HPF 08/15/16 17:30 Urine Mucus (Auto) RARE /LPF 08/15/16 17:30 Urine Ascorbic Acid NEGATIVE (NEGATIVE) 08/15/16 17:30 Stool Occult Blood NEGATIVE (NEGATIVE) 08/15/16 19:39 Blood Type O POSITIVE 08/15/16 19:30 Antibody Screen NEGATIVE 08/15/16 19:30 08/15/16 23:18 Blood Culture - Preliminary Blood NO GROWTH IN 24 HOURS 08/15/16 23:18 Blood Culture - Preliminary Blood NO GROWTH IN 24 HOURS 08/15/16 17:30 Urine Culture - Final Berry Catheter NO GROWTH 2 DAYS Impressions: Acute Abdomen Series 08/15/16 17:07 IMPRESSION: NONSPECIFIC BOWEL GAS PATTERN WITHOUT EVIDENCE FOR OBSTRUCTION. Transfer Plan - Disposition Transfer Plan: The patient is to follow-up primary care provider within one week hospital follow-up - Time Spent with Patient Time spent with patient: Greater than 30 Minutes Qualifiers PATEINT BEING DISCHARGED WITH ANY OF THE FOLLOWING DIAGNOSIS?: No
[2016-08-17 20:44] VITALS: BP 106/36
== END 2016-08-17 23:11 | DRG 696 ==
LOC: ER 16:49 → EH 22:18 → UNDOADMIN 23:12 → 3S 08-16 01:39
PROVIDERS: ADMIT Internal Medicine; ATTEND Internal Medicine
DX: R33.9 Retention of urine, unspecified (principal); D62 Acute posthemorrhagic anemia; E46 Unspecified protein-calorie malnutrition; N40.1 Benign prostatic hyperplasia with lower urinary tract symptoms; R31.0 Gross hematuria; I10 Essential (primary) hypertension; I48.2 Chronic atrial fibrillation; F03.90 Unspecified dementia, unspecified severity, without behavioral disturbance, psychotic disturbance, mood disturbance, and anxiety; I25.10 Atherosclerotic heart disease of native coronary artery without angina pectoris; E78.5 Hyperlipidemia, unspecified; K59.01 Slow transit constipation; Z79.899 Other long term (current) drug therapy; Z78.1 Physical restraint status
CPT/HCPCS: 36415; 51702; 74022; 80048; 80053; 81001; 82272; 82607; 82728; 82746; 83540; 83550; 83605; 83735; 83880; 84443; 85025; 85027; 85045; 85610; 85730; 86850; 86900; 86901; 87040; 87086; 93005; 93010; 99285; J1644; J1940; J1956; J2543; J3490

== ENCOUNTER 2016-08-27 09:13 | Inpatient (IN) | payer MEDICARE ==
--- NOTE | 2016-08-27 09:39 | ER Document Report ---
ED General - General Mode of Arrival: Medic Information source: Patient, Emergency Med Personnel TRAVEL OUTSIDE OF THE [place] IN LAST 30 DAYS: No - HPI Patient complains to provider of: Penile sweling Onset: This morning Associated symptoms: Other - see notes above <VIRY BECK - Last Filed: 08/27/16 09:46> <TIFFANY GUEVARA - Last Filed: 08/27/16 15:07> - General Chief Complaint: Penile Problem Stated Complaint: PENILE SWELLING Notes: 85 year old male with history of acute renal failure, BPH, hypertension, hyperlipidemia, and hypoglycemia presents to the ED via EMS after [facility] staff noticed penile swelling earlier this morning. Patient was seen in the ED in July 2016 for acute renal insufficiency secondary to obstructive uropathy (6.36 creatinine) and was transferred to [place]. Patient was again seen on 08/15/2016 for penile swelling secondary to pulling a Berry catheter out and was admitted (0.86 Creatinine). (VIRY BECK) This 85-year-old male patient was seen here on 07/25/2016 with a creatinine over 6, and chronic bladder outlet obstruction with hydronephrosis. He was transferred to [facility]. He was admitted here again on 08/15/2016 through 08/17/2016. At that time he got one dose of IV Lasix by history, and diuresed over 3 L of fluid. He was transferred to a [facility] on that visit. He is not on any diuretics. He does keep a Berry catheter now. He returns emergency room today for swelling of the genitals. On exam, he has significant penile edema, he has sacral pitting edema, he has 3+ . Edema to the lower extremities, he has pitting edema to the right hand. The left hand does not seem to have any edema. Today his chest x-ray shows a markedly elevated right hemidiaphragm with atelectasis or infiltrate developing. He did not have an echo on the previous admission, as he probably diuresed with a Berry catheter and one dose of Lasix. (TIFFANY GUEVARA) - Related Data Allergies/Adverse Reactions: adhesive tape Adverse Reaction (Intermediate, Verified 08/16/16 13:13) SKIN IRRITATION Past Medical History - General Information source: Patient - Social History Smoking Status: Unknown if Ever Smoked Family History: Other - Unobtainable - Past Medical History Cardiac Medical History: Reports: Hx Atrial Fibrillation, Hx Coronary Artery Disease, Hx Hypercholesterolemia, Hx Hypertension, Other - Anemia Renal/ Medical History: Reports: Hx Benign Prostatic Hyperplasia, Hx Kidney Stones, Other - obstructive uropathy. Denies: Hx Peritoneal Dialysis Psychiatric Medical History: Reports: Hx Dementia <VIRY BECK - Last Filed: 08/27/16 09:46> Review of Systems - Review of Systems Constitutional: No symptoms reported EENT: No symptoms reported Cardiovascular: No symptoms reported Respiratory: No symptoms reported Gastrointestinal: No symptoms reported Genitourinary: No symptoms reported Male Genitourinary: No symptoms reported, Other - penile swelling Musculoskeletal: No symptoms reported Skin: No symptoms reported Hematologic/Lymphatic: No symptoms reported Neurological/Psychological: No symptoms reported -: Yes All other systems reviewed and negative <VIRY BECK - Last Filed: 08/27/16 09:46> Physical Exam - General General appearance: Alert In distress: None - HEENT Head: Normocephalic, Atraumatic Eyes: Normal Extraocular movements intact: Yes Pupils: PERRL - Respiratory Respiratory status: No respiratory distress Breath sounds: Normal - Cardiovascular Rhythm: Regular Heart sounds: Normal auscultation - Abdominal Inspection: Normal Distension: No distension Tenderness: Nontender - Back Back: No: Normal - pre-sacral edema - Extremities General upper extremity: Edema - Right hand is edematous, but the left hand is not.. No: Normal inspection General lower extremity: Edema - 3-4+ pitting edema to bilateral lower extremities. No: Normal inspection - Neurological Neuro grossly intact: Yes - Psychological Associated symptoms: Normal affect, Normal mood - Skin Skin Temperature: Warm Skin Moisture: Dry Skin Color: Normal <VIRY BECK - Last Filed: 08/27/16 09:46> <TIFFANY GUEVARA - Last Filed: 08/27/16 15:07> - Vital signs Vitals: Temp Pulse Resp BP Pulse Ox 97.6 F 70 16 124/76 96 08/27/16 09:16 08/27/16 09:16 08/27/16 09:16 08/27/16 09:16 08/27/16 09:16 - Genitourinary Notes: Penile edema (VIRY BECK) Course <VIRY BECK - Last Filed: 08/27/16 09:46> - Laboratory Result Diagrams: 08/27/16 10:30 08/27/16 10:30 - Diagnostic Test Radiology reviewed: Image reviewed, Reports reviewed - Chest x-ray shows stable cardiomegaly with a markedly elevated right diaphragm which is a new finding, and right basilar density which is felt to be either atelectasis or infiltrate - EKG Interpretation by Co EKG shows normal: Sinus rhythm, [place], QRS Complexes, ST-T Waves. abnormal: Intervals - Prolonged QT interval Rate: Normal Voltage: Decreased voltage Heart block present: 1st Degree When compared to previous EKG there are: No significant change - Consults Eliazar Mckinnon Time consulted: 13:35 Consulted provider: will come to ER <TIFFANY GUEVARA - Last Filed: 08/27/16 15:07> - Re-evaluation Re-evalutation: 08/27/16 13:35 (TIFFANY GUEVARA) - Vital Signs Vital signs: Temp Pulse Resp BP Pulse Ox 97.6 F 70 14 124/79 88 L 08/27/16 09:16 08/27/16 09:16 08/27/16 14:01 08/27/16 14:01 08/27/16 11:39 - Laboratory Laboratory results interpreted by me: 08/27/16 08/27/16 08/27/16 10:30 10:30 11:45 RBC 2.66 L Hgb 8.5 L Hct 25.0 L RDW 16.2 H Lymphocytes % 12.3 L Creatine Kinase 42 L NT-Pro-B Natriuret Pep 3020 H Albumin 3.2 L Discharge <VIRY BECK - Last Filed: 08/27/16 09:46> - Discharge Admitting Provider: Hospitalist Unit Admitted: Telemetry <TIFFANY GUEVARA - Last Filed: 08/27/16 15:07> - Discharge Clinical Impression: Anasarca, Penile edema, Bladder outlet obstruction Benign prostatic hyperplasia Qualifiers: Prostatic enlargement morphology: unspecified morphology Lower urinary tract symptom presence: symptoms present Qualified Code(s): N40.1 - Benign prostatic hyperplasia with lower urinary tract symptoms Condition: Stable Disposition: ADMITTED OBSERVATION Referrals: JENA BUTLER PA-C [Primary Care Provider] - Follow up as needed Scribe Attestation: 08/27/16 13:40 I personally performed the services described in the documentation, reviewed and edited the documentation which was dictated to the scribe in my presence, and it accurately records my words and actions. (TIFFANY GUEVARA) Scribe Documentation - Scribe Written by Scribe:: Med Morales, 08/27/2016 Norman acting as scribe for :: Heike <VIRY BECK - Last Filed: 08/27/16 09:46>
[2016-08-27] MEDS ORDERED: FUROSEMIDE INJ/PF 20 MG/2 ML SDV IV ONE (09:44)
[2016-08-27 10:41] LABS: ABSOLUTE BASOPHILS # (AUTO) 0.1 10^3/uL (0.0-0.2); ABSOLUTE EOSINOPHILS # (AUTO) 0.1 10^3/uL (0.0-0.6); ABSOLUTE MONOCYTES (AUTO) 0.7 10^3/uL (0.1-1.4); ABSOLUTE NEUT (AUTO) 6.5 10^3/uL (1.7-8.2); BASOPHILS % (AUTO) 0.6 % (0-2); EOSINOPHILS % (AUTO) 1.1 % (0-6); HEMOGLOBIN 8.5 g/dL (13.5-17.0); HGB HCT DIFFERENCE 0.5; LYMPHOCYTES % (AUTO) 12.3 % (13-45); MEAN CORPUSCULAR HEMOGLOBIN 32.1 pg (27.0-33.4); MEAN CORPUSCULAR HGB CONC 34.1 g/dL (32.0-36.0); MEAN CORPUSCULAR VOLUME 94 fl (80-97); MONOCYTES % (AUTO) 8.4 % (3-13); RED BLOOD COUNT 2.66 10^6/uL (4.35-5.55); RED CELL DISTRIBUTION WIDTH 16.2 % (11.5-14.0); SEGMENTED NEUTROPHILS % (AUTO) 77.6 % (42-78); WHITE BLOOD COUNT 8.3 10^3/uL (4.0-10.5)
[2016-08-27 11:00] LABS: ALANINE AMINOTRANSFERASE 35 U/L (21-72); ALBUMIN 3.2 g/dL (3.5-5.0); ALKALINE PHOSPHATASE 95 U/L (38-126); ANION GAP 17 (5-19); ASPARTATE AMINO TRANSFERASE 24 U/L (17-59); BILIRUBIN,DIRECT 0.4 mg/dL (0.0-0.4); BILIRUBIN,TOTAL 0.9 mg/dL (0.2-1.3); BLOOD UREA NITROGEN 15 mg/dL (7-20); CALCIUM 9.1 mg/dL (8.4-10.2); CARBON DIOXIDE 26 mmol/L (22-30); CHLORIDE 101 mmol/L (98-107); CREATINE KINASE 42 U/L (55-170); CREATININE RESULT 0.72 mg/dL (0.52-1.25); GLUCOSE 88 mg/dL (75-110); MAGNESIUM 1.7 mg/dL (1.6-2.3); POTASSIUM 4.3 mmol/L (3.6-5.0); SODIUM 143.7 mmol/L (137-145); TOTAL PROTEIN 6.9 g/dL (6.3-8.2)
[2016-08-27 12:35] LABS: CREATINE KINASE MB 1.04 ng/mL (<4.55)
[2016-08-27 12:37] LABS: TROPONIN I 0.049 ng/mL
[2016-08-27] MEDS ORDERED: ENOXAPARIN SODIUM INJ 40 MG/0.4 ML DISP.SYRIN SUBCUT ONE (15:00)
[2016-08-27] MEDS ORDERED: FUROSEMIDE INJ/PF 40 MG/4 ML SDV IV ONE (16:00)
--- NOTE | 2016-08-27 16:31 | EKG REPORT ---
SEVERITY:- ABNORMAL ECG - SINUS RHYTHM FIRST DEGREE AV BLOCK LOW VOLTAGE IN FRONTAL LEADS BORDERLINE PROLONGED QT INTERVAL : Confirmed by: Nishant Schaeffer MD 27-Aug-2016 16:30:27
--- NOTE | 2016-08-27 16:46 | PDOC H&P ---
History of Present Illness Admission Date/PCP: JENA BUTLER PA-C Patient complains of: Swelling History of Present Illness: YAMILE EDMOND is a 85 year old male with a history of acute renal failure, BPH, hypertension, hyperlipidemia, and hypoglycemia presents to the ED via EMS after [facility] staff noticed penile swelling earlier this morning. Patient was seen in the ED in July 2016 for acute renal insufficiency secondary to obstructive uropathy (6.36 creatinine) and was transferred to [place]. Patient was again seen on 08/15/2016 for penile swelling secondary to pulling a Berry catheter out and was admitted (0.86 Creatinine). The patient was seen here on 07/25/2016 with a creatinine over 6, and chronic bladder outlet obstruction with hydronephrosis. He was transferred to [facility]. He was admitted here again on 08/15/2016 through 08/17/2016. At that time he got one dose of IV Lasix by history, and diuresed over 3 L of fluid. He was transferred to a [facility] on that visit. He is not on any diuretics. He does keep a Berry catheter now. He returns emergency room today for swelling of the genitals. On exam, he has significant penile edema, he has sacral pitting edema, he has 3+. Edema to the lower extremities, he has pitting edema to the right hand. The left hand does not seem to have any edema. The patient was referred to the hospitalist for admission and management. Past Medical History Cardiac Medical History: Reports: Atrial Fibrillation, Coronary Artery Disease, Hyperlipidema, Hypertension, Other - Anemia Renal/ Medical History: Reports: Other - obstructive uropathy Psychiatric Medical History: Reports: Dementia Past Surgical History Past Surgical History: Reports: None Social History Information Source: Patient, Relative Lives with: [facility] Smoking Status: Unknown if Ever Smoked Frequency of Alcohol Use: None Hx Recreational Drug Use: No - AMS using medical record Hx Prescription Drug Abuse: No - Advance Directive Resuscitation Status: Do Not Resuscitate Surrogate healthcare decision maker:: Nephew: [phone] Family History Family History: None, Other - Unobtainable Parental Family History Reviewed: Yes Children Family History Reviewed: NA Sibling(s) Family History Reviewed.: Yes Medication/Allergy Home Medications: Albuterol Sulfate [Proair HFA Inhalation Aerosol 8.5 gm MDI] 2 puff IH Q6HP PRN 08/27/16 Amlodipine Besylate [Norvasc 5 mg Tablet] 5 mg PO DAILY 08/27/16 Docusate Sodium [Colace 100 mg Capsule] 200 mg PO QAM 08/27/16 Doxazosin Mesylate [Cardura 2 mg Tablet] 2 mg PO QPM 08/27/16 Ferrous Sulfate [Feosol 325 mg Tablet] 325 mg PO DAILY 08/27/16 Finasteride [Proscar 5 mg Tablet] 5 mg PO DAILY 08/27/16 Furosemide [Lasix] 20 mg PO BID@0900,1500 08/27/16 Metoprolol Tartrate [Lopressor 100 mg Tablet] 100 mg PO Q12 08/27/16 Potassium Chloride [K-Tab ER] 20 meq PO DAILY 08/27/16 Tamsulosin HCl [Flomax 0.4 mg Cap.sr] 0.4 mg PO DAILY 08/27/16 Allergies/Adverse Reactions: adhesive tape Adverse Reaction (Intermediate, Verified 08/16/16 13:13) SKIN IRRITATION Review of Systems ROS unobtainable: Due to mental status - unreliable Physical Exam Vital Signs: Temp Pulse Resp BP Pulse Ox 97.6 F 70 17 118/72 88 L 08/27/16 09:16 08/27/16 09:16 08/27/16 15:01 08/27/16 15:01 08/27/16 11:39 Intake & Output 08/25/16 08/26/16 08/27/16 23:59 23:59 23:59 Output Total 1160 Balance -1160 Weight 111.13 kg General appearance: PRESENT: cooperative, disheveled, well-developed Head exam: PRESENT: atraumatic, normocephalic Eye exam: PRESENT: conjunctiva pink, EOMI, periorbital swelling, PERRLA. ABSENT : scleral icterus Ear exam: PRESENT: normal external ear exam Mouth exam: PRESENT: moist, tongue midline Neck exam: PRESENT: JVD. ABSENT: carotid bruit, lymphadenopathy, thyromegaly Respiratory exam: PRESENT: crackles, symmetrical, unlabored. ABSENT: rales, rhonchi, tachypnea, wheezes Cardiovascular exam: PRESENT: RRR. ABSENT: diastolic murmur, rubs, systolic murmur Pulses: PRESENT: normal dorsalis pedis pul Vascular exam: PRESENT: normal capillary refill GI/Abdominal exam: PRESENT: normal bowel sounds, soft. ABSENT: distended, guarding, mass, organolmegaly, rebound, tenderness Rectal exam: PRESENT: deferred Extremities exam: PRESENT: full ROM. ABSENT: calf tenderness, clubbing, pedal edema Neurological exam: PRESENT: alert - Delayed, awake, oriented to person, oriented to place, oriented to situation, CN II-XII grossly intact. ABSENT: motor sensory deficit Psychiatric exam: PRESENT: appropriate affect. ABSENT: homicidal ideation, suicidal ideation Skin exam: PRESENT: dry, intact, warm. ABSENT: cyanosis, rash Results Laboratory Results: 08/27/16 10:30 08/27/16 10:30 08/27/16 08/27/16 10:30 10:30 WBC 8.3 RBC 2.66 L Hgb 8.5 L Hct 25.0 L MCV 94 MCH 32.1 MCHC 34.1 RDW 16.2 H Plt Count 269 Seg Neutrophils % 77.6 Lymphocytes % 12.3 L Monocytes % 8.4 Eosinophils % 1.1 Basophils % 0.6 Absolute Neutrophils 6.5 Absolute Lymphocytes 1.0 Absolute Monocytes 0.7 Absolute Eosinophils 0.1 Absolute Basophils 0.1 Sodium 143.7 Potassium 4.3 Chloride 101 Carbon Dioxide 26 Anion Gap 17 BUN 15 Creatinine 0.72 Est GFR ( Amer) > 60 Est GFR (Non-Af Amer) > 60 Glucose 88 Calcium 9.1 Magnesium 1.7 Total Bilirubin 0.9 AST 24 ALT 35 Alkaline Phosphatase 95 Total Protein 6.9 Albumin 3.2 L 08/27/16 08/27/16 10:30 11:45 Creatine Kinase 42 L CK-MB (CK-2) 1.04 Troponin I 0.049 NT-Pro-B Natriuret Pep 3020 H Impressions: Chest X-Ray 08/27/16 09:38 IMPRESSION: STABLE CARDIOMEGALY. ELEVATED RIGHT HEMIDIAPHRAGM WITH INCREASING RIGHT BASILAR DENSITY, ATELECTASIS VERSUS INFILTRATE. Assessment & Plan - Diagnosis (1) Anasarca Is this a current diagnosis for this admission?: YesPlan: Will admit to continuous telemetry unit. Will diurese with Lasix and follow. Repeat chemistries in the a.m. Will obtain echocardiogram The patient has not had a formal diagnosis of CHF. Upon review of previous records the patient did not come in on diuretics for medication suggestive of CHF. (2) Benign prostatic hyperplasia Qualifiers: Prostatic enlargement morphology: unspecified morphology Lower urinary tract symptom presence: symptoms present Qualified Code(s): N40.1 - Benign prostatic hyperplasia with lower urinary tract symptoms Is this a current diagnosis for this admission?: YesPlan: Berry in place draining clear yellow urine is him home medications. (3) Bladder outlet obstruction Is this a current diagnosis for this admission?: Yes (4) Hypertension Qualifiers: Hypertension type: essential hypertension Qualified Code(s): I10 - Essential (primary) hypertension Is this a current diagnosis for this admission?: Yes (5) Iron deficiency anemia Qualifiers: Iron deficiency anemia type: inadequate dietary iron intake Qualified Code(s): D50.8 - Other iron deficiency anemias Is this a current diagnosis for this admission?: YesPlan: Repeat CBC in the a.m. (6) Malnutrition Is this a current diagnosis for this admission?: Yes (7) Constipation Qualifiers: Constipation type: slow transit constipation Qualified Code(s): K59.01 - Slow transit constipation Is this a current diagnosis for this admission?: Yes - Time Time Spent: 50 to 70 Minutes Medications reviewed and adjusted accordingly: Yes Anticipated discharge: SNF Within: within 24 hours Disposition: The patient is a DO NOT RESUSCITATE DO NOT INTUBATE. Pending patient's symptomatology and diagnostic findings will reevaluate as needed. Discussed CODE STATUS with both the patient and surrogate decision maker his nephew.
[2016-08-27] MEDS: DOXAZOSIN MESYLATE 2 MG TABLET PO SCH (20:21)
[2016-08-28] MEDS: METOPROLOL TARTRATE 100 MG TABLET PO SCH ×2 (00:15→11:38)
[2016-08-28 05:39] LABS: HEMATOCRIT 23.6 % (37.9-51.0); HEMOGLOBIN 8.7 g/dL (13.5-17.0); HGB HCT DIFFERENCE 2.5; MEAN CORPUSCULAR HEMOGLOBIN 33.4 pg (27.0-33.4); MEAN CORPUSCULAR HGB CONC 36.8 g/dL (32.0-36.0); MEAN CORPUSCULAR VOLUME 91 fl (80-97); RED CELL DISTRIBUTION WIDTH 15.9 % (11.5-14.0); WHITE BLOOD COUNT 6.7 10^3/uL (4.0-10.5)
[2016-08-28 05:56] LABS: ANION GAP 11 (5-19); BLOOD UREA NITROGEN 17 mg/dL (7-20); CALCIUM 8.3 mg/dL (8.4-10.2); CARBON DIOXIDE 31 mmol/L (22-30); CHLORIDE 101 mmol/L (98-107); GLUCOSE 76 mg/dL (75-110); MAGNESIUM 1.5 mg/dL (1.6-2.3); POTASSIUM 3.8 mmol/L (3.6-5.0); SODIUM 142.9 mmol/L (137-145)
[2016-08-28] MEDS: DOCUSATE SODIUM 100 MG CAPSULE PO SCH (08:16)
[2016-08-28] MEDS: ENOXAPARIN SODIUM INJ 40 MG/0.4 ML DISP.SYRIN SUBCUT SCH (08:16)
[2016-08-28] MEDS ORDERED: (PENDING PHARMACY ID) (Potassium Chloride [K-Tab Er] 20 MEQ) PO SCH (10:00)
[2016-08-28] MEDS: POTASSIUM CHLORIDE 10 MEQ TABLET.SA PO SCH (11:18)
[2016-08-28] MEDS: FERROUS SULFATE 325 MG TABLET PO SCH (11:19)
[2016-08-28] MEDS: FINASTERIDE 5 MG TABLET PO SCH (11:19)
[2016-08-28] MEDS: AMLODIPINE BESYLATE 5 MG TABLET PO SCH (11:38)
[2016-08-28] MEDS: FUROSEMIDE INJ/PF 40 MG/4 ML SDV IV SCH (11:44)
[2016-08-28] MEDS ORDERED: METOPROLOL TARTRATE 100 MG TABLET PO ONE (12:00)
[2016-08-28] MEDS: TAMSULOSIN HCL 0.4 MG CAP.SR.24H PO SCH (12:12)
--- NOTE | 2016-08-28 12:38 | PDOC PROGRESS REPORT ---
Subjective Progress Note for:: 08/28/16 Subjective:: Patient is seen on morning rounds. He is resting in bed eating his breakfast. He denies any shortness of breath, chest pain or dyspnea. He denies any nausea, vomiting or abdominal pain. He denies any back pain or myalgias. He is confused to place and time Physical Exam Vital Signs: Temp Pulse Resp BP Pulse Ox 98.4 F 77 16 108/68 100 08/28/16 08:53 08/28/16 08:53 08/28/16 08:53 08/28/16 08:53 08/28/16 08:53 Intake & Output 08/27/16 08/28/16 08/29/16 06:59 06:59 06:59 Intake Total 240 Output Total 2350 Balance -2110 Weight 97.6 kg General appearance: PRESENT: no acute distress, obese, well-developed, well- nourished Head exam: PRESENT: atraumatic, normocephalic Eye exam: PRESENT: conjunctiva pink, EOMI, PERRLA. ABSENT: scleral icterus Ear exam: PRESENT: normal external ear exam Mouth exam: PRESENT: moist, tongue midline Teeth exam: PRESENT: edentulous Neck exam: ABSENT: carotid bruit, JVD, lymphadenopathy, thyromegaly Respiratory exam: PRESENT: crackles, decreased breath sounds, symmetrical, unlabored. ABSENT: rales, rhonchi, wheezes Cardiovascular exam: PRESENT: RRR. ABSENT: diastolic murmur, rubs, systolic murmur Pulses: PRESENT: normal dorsalis pedis pul Vascular exam: PRESENT: normal capillary refill GI/Abdominal exam: PRESENT: normal bowel sounds, soft. ABSENT: distended, guarding, mass, organolmegaly, rebound, tenderness Rectal exam: PRESENT: deferred Extremities exam: PRESENT: full ROM. ABSENT: calf tenderness, clubbing, pedal edema Neurological exam: PRESENT: alert, awake, oriented to person, oriented to place , CN II-XII grossly intact. ABSENT: motor sensory deficit Psychiatric exam: PRESENT: appropriate affect, normal mood. ABSENT: homicidal ideation, suicidal ideation Skin exam: PRESENT: dry, intact, warm. ABSENT: cyanosis, rash Results Laboratory Results: 08/28/16 04:59 08/28/16 04:59 04/15/17 04/15/17 04:59 04:59 WBC 6.7 RBC 2.60 L Hgb 8.7 L Hct 23.6 L MCV 91 MCH 33.4 MCHC 36.8 H RDW 15.9 H Plt Count 252 Sodium 142.9 Potassium 3.8 Chloride 101 Carbon Dioxide 31 H Anion Gap 11 BUN 17 Creatinine 0.70 Est GFR ( Amer) > 60 Est GFR (Non-Af Amer) > 60 Glucose 76 Calcium 8.3 L Magnesium 1.5 L Impressions: Chest X-Ray 08/27/16 09:38 IMPRESSION: STABLE CARDIOMEGALY. ELEVATED RIGHT HEMIDIAPHRAGM WITH INCREASING RIGHT BASILAR DENSITY, ATELECTASIS VERSUS INFILTRATE. Assessment & Plan - Diagnosis (1) Anasarca Is this a current diagnosis for this admission?: Yes (2) Bladder outlet obstruction Is this a current diagnosis for this admission?: YesPlan: Continue young (3) Hypertension Qualifiers: Hypertension type: essential hypertension Qualified Code(s): I10 - Essential (primary) hypertension Is this a current diagnosis for this admission?: YesPlan: Borderline hypotension. Hold Amlidopine and 1/2 dose of metoprolol with diuresis (4) Iron deficiency anemia Qualifiers: Iron deficiency anemia type: inadequate dietary iron intake Qualified Code(s): D50.8 - Other iron deficiency anemias Is this a current diagnosis for this admission?: Yes (5) Benign prostatic hyperplasia Qualifiers: Prostatic enlargement morphology: unspecified morphology Lower urinary tract symptom presence: symptoms present Qualified Code(s): N40.1 - Benign prostatic hyperplasia with lower urinary tract symptoms Is this a current diagnosis for this admission?: YesPlan: Continue Flomax and Finasteride - Time Time Spent with patient: 25-34 minutes Critical Time spent with patient: 25-34 minutes Smoking Cessation Education: 3 to 10 minutes Medications reviewed and adjusted accordingly: Yes Anticipated discharge: SNF
[2016-08-28] MEDS: MAGNESIUM SULFATE/D5W 100 ML IV SCH ×2 (12:44→16:09)
[2016-08-28] MEDS: DOXAZOSIN MESYLATE 2 MG TABLET PO SCH (17:03)
[2016-08-29] MEDS: METOPROLOL TARTRATE 100 MG TABLET PO SCH ×3 (00:14→23:17)
[2016-08-29] MEDS: FUROSEMIDE INJ/PF 40 MG/4 ML SDV IV SCH ×3 (00:14→23:17)
[2016-08-29] MEDS: ENOXAPARIN SODIUM INJ 40 MG/0.4 ML DISP.SYRIN SUBCUT SCH (10:09)
[2016-08-29] MEDS: POTASSIUM CHLORIDE 10 MEQ TABLET.SA PO SCH (10:10)
[2016-08-29] MEDS: TAMSULOSIN HCL 0.4 MG CAP.SR.24H PO SCH (10:10)
[2016-08-29] MEDS: DOCUSATE SODIUM 100 MG CAPSULE PO SCH (10:11)
[2016-08-29] MEDS: FINASTERIDE 5 MG TABLET PO SCH (10:11)
[2016-08-29] MEDS: FERROUS SULFATE 325 MG TABLET PO SCH (10:11)
--- NOTE | 2016-08-29 14:52 | PDOC PROGRESS REPORT ---
Subjective Progress Note for:: 08/29/16 Subjective:: Patient is seen on morning rounds. He is resting in bed eating his breakfast. He denies any shortness of breath, chest pain or dyspnea. He denies any nausea, vomiting or abdominal pain. He denies any back pain or myalgias. He is confused to place and time Physical Exam Vital Signs: Temp Pulse Resp BP Pulse Ox 97.4 F 72 19 108/59 L 94 08/29/16 12:00 08/29/16 14:00 08/29/16 12:00 08/29/16 12:00 08/29/16 12:00 Intake & Output 08/28/16 08/29/16 08/30/16 06:59 06:59 06:59 Intake Total 240 1500 600 Output Total 2350 4400 1400 Balance -2110 -2900 -800 Weight 97.6 kg 98.4 kg General appearance: PRESENT: no acute distress, well-developed, well-nourished Head exam: PRESENT: atraumatic, normocephalic Eye exam: PRESENT: conjunctiva pink, EOMI, PERRLA. ABSENT: scleral icterus Ear exam: PRESENT: normal external ear exam Mouth exam: PRESENT: moist, tongue midline Neck exam: ABSENT: carotid bruit, JVD, lymphadenopathy, thyromegaly Respiratory exam: PRESENT: decreased breath sounds, symmetrical, unlabored Cardiovascular exam: PRESENT: RRR. ABSENT: diastolic murmur, rubs, systolic murmur Pulses: PRESENT: normal dorsalis pedis pul Vascular exam: PRESENT: normal capillary refill GI/Abdominal exam: PRESENT: normal bowel sounds, soft. ABSENT: distended, guarding, mass, organolmegaly, rebound, tenderness Rectal exam: PRESENT: deferred Extremities exam: PRESENT: full ROM. ABSENT: calf tenderness, clubbing, pedal edema Musculoskeletal exam: PRESENT: full ROM Neurological exam: PRESENT: alert, altered, CN II-XII grossly intact Psychiatric exam: PRESENT: appropriate affect, normal mood. ABSENT: homicidal ideation, suicidal ideation Skin exam: PRESENT: dry, intact, warm. ABSENT: cyanosis, rash Results Laboratory Results: 08/28/16 04:59 08/28/16 04:59 Impressions: Chest X-Ray 08/27/16 09:38 IMPRESSION: STABLE CARDIOMEGALY. ELEVATED RIGHT HEMIDIAPHRAGM WITH INCREASING RIGHT BASILAR DENSITY, ATELECTASIS VERSUS INFILTRATE. Assessment & Plan - Diagnosis (1) Anasarca Is this a current diagnosis for this admission?: YesPlan: Improved with twice a day Lasix. (2) Bladder outlet obstruction Is this a current diagnosis for this admission?: YesPlan: Continue young (3) Hypertension Qualifiers: Hypertension type: essential hypertension Qualified Code(s): I10 - Essential (primary) hypertension Is this a current diagnosis for this admission?: YesPlan: Borderline hypotension. Hold Amlidopine and 1/2 dose of metoprolol with diuresis (4) Iron deficiency anemia Qualifiers: Iron deficiency anemia type: inadequate dietary iron intake Qualified Code(s): D50.8 - Other iron deficiency anemias Is this a current diagnosis for this admission?: YesPlan: Presently stable. (5) Benign prostatic hyperplasia Qualifiers: Prostatic enlargement morphology: unspecified morphology Lower urinary tract symptom presence: symptoms present Qualified Code(s): N40.1 - Benign prostatic hyperplasia with lower urinary tract symptoms Is this a current diagnosis for this admission?: YesPlan: Continue Flomax and Finasteride - Time Time Spent with patient: 25-34 minutes Critical Time spent with patient: 15-24 minutes Medications reviewed and adjusted accordingly: Yes Anticipated discharge: SNF Within: within 24 hours
[2016-08-29] MEDS: DOXAZOSIN MESYLATE 2 MG TABLET PO SCH (17:26)
[2016-08-30] MEDS: DOCUSATE SODIUM 100 MG CAPSULE PO SCH (08:40)
[2016-08-30] MEDS: ENOXAPARIN SODIUM INJ 40 MG/0.4 ML DISP.SYRIN SUBCUT SCH (08:40)
--- NOTE | 2016-08-30 13:12 | XCELERA REPORT ---
[address] [address] Transthoracic Echocardiogram Report Name: YAMILE EDMOND Age: 85 yrs Gender: Male : 1930 Patient Status: Inpatient Patient Location: [id number] Study Date: 08/30/2016 09:59 AM Height: 68 in Weight: 245 lb BSA: 2.2 m2 Procedure: A two-dimensional transthoracic echocardiogram with color flow and Doppler was performed. Study Quality: Fair. Reason For Study: ANASARCA / EDEMA History: ANASARCA / EDEMA. Ordering Physician: AYANA CAREY Performed By: Yari Demarco Interpretation Summary The left ventricle is normal in size. There is mild concentric left ventricular hypertrophy. LV EF is 60% Left ventricular systolic function is normal. Doppler measurements suggest normal left ventricular diastolic function The left ventricular wall motion is normal. There is no thrombus. The left atrium is mildly dilated. There is no evidence of mitral valve prolapse. There is no mitral valve stenosis. There is a moderate to severe amount of mitral regurgitation There is no aortic valve stenosis There is no LVOT obstruction. There is a trace amount of aortic regurgitation There is no tricuspid stenosis. There is a moderate amount of tricuspid regurgitation Moderate to severe Pulmonary Hypertension.RVSP is 59 to 64 mm of Hg , with RA mean of 10 to 15. There is no pericardial effusion. MMode/2D Measurements \T\ Calculations RVDd: 2.5 cm LVIDd: 4.4 cm FS: 31.7 % MV Diam: 2.7 cm IVSd: 1.3 cm LVIDs: 3.0 cm EDV(Teich): 86.6 ml LVPWd: 1.3 cm ESV(Teich): 34.7 ml EF(Teich): 59.9 % Ao root diam: 3.4 cm LVOT diam: 2.6 cm Ao root area: 9.1 cm2 LVOT area: 5.3 cm2 LA dimension: 4.1 cm Doppler Measurements \T\ Calculations MV E max teresa: MV area (1 diam): MV P1/2t max teresa: Ao V2 max: 130.3 cm/sec 5.7 cm2 132.8 cm/sec 115.6 cm/sec MV A max etresa: MV Flow area MV P1/2t: 42.2 msec Ao max P.9 cm/sec (1diam): 5.7 cm2 MVA(P1/2t): 5.2 cm2 5.3 mmHg MV E/A: 2.7 MV dec slope: OMAR(V,D): 3.9 cm2 921.7 cm/sec2 LV V1 max PG: MR max teresa: PA V2 max: TR max teresa: 2.9 mmHg 509.5 cm/sec 56.8 cm/sec 347.5 cm/sec LV V1 max: MR max PG: PA max P.3 mmHg TR max P.7 cm/sec 103.9 mmHg 48.3 mmHg LV dP/dt: 1010 mmHg/s Left Ventricle The left ventricle is normal in size. There is mild concentric left ventricular hypertrophy. LV EF is 60%. Left ventricular systolic function is normal. Doppler measurements suggest normal left ventricular diastolic function. The left ventricular wall motion is normal. There is no thrombus. There is no ventricular septal defect visualized. Right Ventricle The right ventricle is normal in size and function. Atria The right atrium is normal. The left atrium is mildly dilated. The interatrial septum is intact with no evidence for an atrial septal defect. Mitral Valve There is no evidence of mitral valve prolapse. There is no vegetation seen on the mitral valve. There is no mitral valve stenosis. There is a moderate to severe amount of mitral regurgitation. Aortic Valve There is no aortic valvular vegetation. There is no aortic valve stenosis. There is no LVOT obstruction. There is a trace amount of aortic regurgitation. Tricuspid Valve There is no tricuspid stenosis. There is a moderate amount of tricuspid regurgitation. Moderate to severe Pulmonary Hypertension.RVSP is 59 to 64 mm of Hg , with RA mean of 10 to 15. Great Vessels The aortic root is normal size. Effusions There is no pericardial effusion. : AYANA CAREY > Emily Nunez
--- NOTE | 2016-08-30 15:11 | PDOC TRANSFER SUMMARY ---
General - Admit/Disc Date/PCP Admission Date/Primary Care Provider: 08/29/16 18:06 JENA BUTLER PA-C Discharge Date: 08/30/16 - Discharge Diagnosis (1) Anasarca Is this a current diagnosis for this admission?: YesSummary: Improved , secondary to hypoalbuminemia and chronic diastolic heart failure. Patient was diuresed 12 liters over the last 3 days. Continue daily lasix (2) Bladder outlet obstruction Is this a current diagnosis for this admission?: YesSummary: Continue young catheter. Flomax and Finasteride. Follow up with urology (3) Hypertension Is this a current diagnosis for this admission?: YesSummary: Continue current medications (4) Iron deficiency anemia Is this a current diagnosis for this admission?: YesSummary: Stable (5) Benign prostatic hyperplasia Is this a current diagnosis for this admission?: YesSummary: Continue Flomax, Young and Finasteride. Follow up with urology - Additional Information Resuscitation Status: Do Not Resuscitate Home Medications: Albuterol Sulfate [Proair HFA Inhalation Aerosol 8.5 gm MDI] 2 puff IH Q6HP PRN 08/27/16 Amlodipine Besylate [Norvasc 5 mg Tablet] 5 mg PO DAILY 08/27/16 Docusate Sodium [Colace 100 mg Capsule] 200 mg PO QAM 08/27/16 Doxazosin Mesylate [Cardura 2 mg Tablet] 2 mg PO QPM 08/27/16 Ferrous Sulfate [Feosol 325 mg Tablet] 325 mg PO DAILY 08/27/16 Finasteride [Proscar 5 mg Tablet] 5 mg PO DAILY 08/27/16 Furosemide [Lasix] 20 mg PO BID@0900,1500 08/27/16 Metoprolol Tartrate [Lopressor 100 mg Tablet] 100 mg PO Q12 08/27/16 Potassium Chloride [K-Tab ER] 20 meq PO DAILY 08/27/16 Tamsulosin HCl [Flomax 0.4 mg Cap.sr] 0.4 mg PO DAILY 08/27/16 History of Present Illness Admission Date/PCP: 08/29/16 18:06 JENA BUTLER PA-C Patient complains of: Anasarca History of Present Illness: YAMILE EDMOND is a 85 year old male with a history of acute renal failure, BPH, hypertension, hyperlipidemia, and hypoglycemia presents to the ED via EMS after [facility] staff noticed penile swelling earlier this morning. Patient was seen in the ED in July 2016 for acute renal insufficiency secondary to obstructive uropathy (6.36 creatinine) and was transferred to [place]. Patient was again seen on 08/15/2016 for penile swelling secondary to pulling a Young catheter out and was admitted (0.86 Creatinine). The patient was seen here on 07/25/2016 with a creatinine over 6, and chronic bladder outlet obstruction with hydronephrosis. He was transferred to [facility]. He was admitted here again on 08/15/2016 through 08/17/2016. At that time he got one dose of IV Lasix by history, and diuresed over 3 L of fluid. He was transferred to a retirement on that visit. He is not on any diuretics. He does keep a Young catheter now. He returns emergency room today for swelling of the genitals. On exam, he has significant penile edema, he has sacral pitting edema, he has 3+. Edema to the lower extremities, he has pitting edema to the right hand. The left hand does not seem to have any edema. The patient was referred to the hospitalist for admission and management. Hospital Course Hospital Course: Patient was admitted to the hospitalist service on telemetry. He was confused x 3 at baseline. Young catheter was in place. He was given Lasix 40 mg IV q12h . He had a transthoracic echo today which shows an EF of 60%, grade 1/4 diastolic dysfunction, moderate to severe mitral regurgitation. His weight is down 8 lbs since admission. Chest xray is clear. Will continue daily lasix and potassium daily. He may return to [facility] Physical Exam Vital Signs: Temp Pulse Resp BP Pulse Ox 97.9 F 84 18 114/68 98 08/30/16 12:00 08/30/16 12:00 08/30/16 12:00 08/30/16 12:00 08/30/16 12:00 Intake & Output 08/29/16 08/30/16 08/31/16 06:59 06:59 06:59 Intake Total 580 650 Output Total 3700 1200 Balance -3120 -550 Weight 87.8 kg General appearance: PRESENT: no acute distress, well-developed, well-nourished Head exam: PRESENT: atraumatic, normocephalic Eye exam: PRESENT: conjunctiva pink, EOMI, PERRLA. ABSENT: scleral icterus Ear exam: PRESENT: normal external ear exam Mouth exam: PRESENT: moist, tongue midline Neck exam: ABSENT: carotid bruit, JVD, lymphadenopathy, thyromegaly Respiratory exam: PRESENT: clear to auscultation francia. ABSENT: rales, rhonchi, wheezes Cardiovascular exam: PRESENT: RRR, systolic murmur - mitral area. ABSENT: diastolic murmur, rubs Pulses: PRESENT: normal dorsalis pedis pul Vascular exam: PRESENT: normal capillary refill GI/Abdominal exam: PRESENT: normal bowel sounds, soft. ABSENT: distended, guarding, mass, organolmegaly, rebound, tenderness Rectal exam: PRESENT: deferred Extremities exam: PRESENT: full ROM, +2 edema - much improved. ABSENT: calf tenderness, clubbing, pedal edema Neurological exam: PRESENT: altered, CN II-XII grossly intact Psychiatric exam: PRESENT: normal mood Focused psych exam: PRESENT: restlessness Skin exam: PRESENT: dry, intact, warm. ABSENT: cyanosis, rash Results Impressions: Chest X-Ray 08/27/16 09:38 IMPRESSION: STABLE CARDIOMEGALY. ELEVATED RIGHT HEMIDIAPHRAGM WITH INCREASING RIGHT BASILAR DENSITY, ATELECTASIS VERSUS INFILTRATE. Transfer Plan - Disposition Transfer Plan: Return to [facility] - Time Spent with Patient Time spent with patient: Less than 30 Minutes Qualifiers [facility] BEING DISCHARGED WITH ANY OF THE FOLLOWING DIAGNOSIS?: No Plan Discharge Plan: Return to [facility]
[2016-08-30] MEDS: POTASSIUM CHLORIDE 10 MEQ TABLET.SA PO SCH (15:53)
[2016-08-30] MEDS: TAMSULOSIN HCL 0.4 MG CAP.SR.24H PO SCH (15:54)
[2016-08-30] MEDS: METOPROLOL TARTRATE 100 MG TABLET PO SCH ×2 (15:54→21:28)
[2016-08-30] MEDS: FINASTERIDE 5 MG TABLET PO SCH (15:54)
[2016-08-30] MEDS: AMLODIPINE BESYLATE 5 MG TABLET PO SCH (15:54)
[2016-08-30] MEDS: FERROUS SULFATE 325 MG TABLET PO SCH (15:54)
[2016-08-30] MEDS: DOXAZOSIN MESYLATE 2 MG TABLET PO SCH (19:33)
[2016-08-30 21:21] VITALS: BP 121/69
[2016-08-31] MEDS ORDERED: FUROSEMIDE 40 MG TABLET PO SCH (10:00)
[2016-08-31] MEDS ORDERED: POTASSIUM CHLORIDE 10 MEQ TABLET.SA PO SCH (10:00)
== END 2016-08-30 21:50 | DRG 726 ==
LOC: ER 09:13 → INTOOBSV 16:09 → EH 16:09 → 4S 18:00 → 4N 08-28 17:55 → OBSVTOIN 08-29 18:06
PROVIDERS: ADMIT Family Medicine; ATTEND Family Medicine
DX: N40.1 Benign prostatic hyperplasia with lower urinary tract symptoms (principal); N13.8 Other obstructive and reflux uropathy; E46 Unspecified protein-calorie malnutrition; I10 Essential (primary) hypertension; D50.8 Other iron deficiency anemias; E78.5 Hyperlipidemia, unspecified; I34.0 Nonrheumatic mitral (valve) insufficiency; I48.91 Unspecified atrial fibrillation; I25.10 Atherosclerotic heart disease of native coronary artery without angina pectoris; F03.90 Unspecified dementia, unspecified severity, without behavioral disturbance, psychotic disturbance, mood disturbance, and anxiety; K59.01 Slow transit constipation; Z68.29 Body mass index [BMI] 29.0-29.9, adult; Z66 Do not resuscitate; Z79.899 Other long term (current) drug therapy
CPT/HCPCS: 36415; 71010; 80048; 80053; 82550; 82553; 83735; 83880; 84484; 85025; 85027; 93005; 93010; 93306; 96372; 96374; 96376; 99285; G0378; J1650; J1940; J3475; J3490

== ENCOUNTER 2017-05-19 15:40 | Emergency (ER) | payer MEDICARE ==
[2017-05-19] MEDS ORDERED: NORMAL SALINE 1000 ML 1,000 ML IV ONE ×4 (15:58→20:07)
--- NOTE | 2017-05-19 15:59 | ER Document Report ---
ED GI/ - General Chief Complaint: Abdominal Pain >50 Stated Complaint: ABDOMINAL PAIN Time Seen by Provider: 05/19/17 15:43 Cannot obtain history due to: Dementia Notes: The patient is an 86-year-old male who presents with 1 day of foul-smelling urine and right lower quadrant abdominal pain. He had similar symptoms 9 months ago and was found to have a bladder stone that was causing obstruction. Patient has some dementia and history is difficult to obtain. He denies fevers , vomiting, flank pain, testicular pain, diarrhea or constipation. TRAVEL OUTSIDE OF THE [place] IN LAST 30 DAYS: No - Related Data Allergies/Adverse Reactions: adhesive tape Adverse Reaction (Intermediate, Verified 08/16/16 13:13) SKIN IRRITATION Home Medications: Current Home Medications Amlodipine Besylate [Norvasc 5 mg Tablet] 5 mg PO DAILY 05/19/17 [History] Doxazosin Mesylate [Cardura 2 mg Tablet] 2 mg PO QHS 05/19/17 [History] Ferrous Sulfate [Feosol 325 mg Tablet] 325 mg PO DAILY 05/19/17 [History] Finasteride [Proscar 5 mg Tablet] 5 mg PO DAILY 05/19/17 [History] Furosemide [Lasix 40 mg Tablet] 80 mg PO BIDACBL 05/19/17 [History] Ipratropium/Albuterol Sulfate [Duoneb 3 ml Ampul] 3 ml NEB RTQ6 05/19/17 [ History] Metoprolol Tartrate [Lopressor 100 mg Tablet] 100 mg PO Q12 05/19/17 [History] Spironolactone [Aldactone] 50 mg PO DAILY 05/19/17 [History] Past Medical History - General Information source: Patient, Emergency Med Personnel Cannot obtain history due to: Dementia - Social History Smoking Status: Unknown if Ever Smoked Family History: None, Other - Unobtainable - Past Medical History Cardiac Medical History: Reports: Hx Atrial Fibrillation, Hx Coronary Artery Disease, Hx Hypercholesterolemia, Hx Hypertension Denies: Hx Congestive Heart Failure, Hx Heart Attack Pulmonary Medical History: Denies: Hx Asthma, Hx Bronchitis, Hx COPD, Hx Pneumonia, Hx Tuberculosis Neurological Medical History: Denies: Hx Seizures Renal/ Medical History: Reports: Hx Benign Prostatic Hyperplasia, Hx Kidney Stones. Denies: Hx End Stage Renal Disease, Hx Peritoneal Dialysis GI Medical History: Denies: Hx Cirrhosis, Hx Gastroesophageal Reflux Disease, Hx Ulcer Musculoskeltal Medical History: Denies Hx Arthritis, Denies Hx Multiple Sclerosis Psychiatric Medical History: Reports: Hx Dementia Denies: Hx Bipolar Disorder, Hx Depression, Hx Schizophrenia - Immunizations Hx Diphtheria, Pertussis, Tetanus Vaccination: No Review of Systems - Review of Systems Notes: REVIEW OF SYSTEMS: CONSTITUTIONAL: -fevers, -chills EENT: -eye pain, -difficulty swallowing, -nasal congestion CARDIOVASCULAR: -chest pain, -syncope. RESPIRATORY: -cough, -SOB GASTROINTESTINAL: +abdominal pain, -nausea, -vomiting, -diarrhea GENITOURINARY: +dysuria, -hematuria MUSCULOSKELETAL: -back pain, -neck pain SKIN: -rash or skin lesions. HEMATOLOGIC: -easy bruising or bleeding. LYMPHATIC: -swollen, enlarged glands. NEUROLOGICAL: -altered mental status or loss of consciousness, -headache, - neurologic symptoms PSYCHIATRIC: -anxiety, -depression. ALL OTHER SYSTEMS REVIEWED AND NEGATIVE. Physical Exam - Vital signs Vitals: Temp 97.9 F 05/19/17 15:41 Course - Re-evaluation Re-evalutation: Patient with dysuria, leukocytosis and slight hypotension. His CT abdomen and pelvis show multiple urethral stents. Concern for septic urethral stones. Looking through prior cultures, he has grown out Klebsiella that is pansensitive. Rocephin and IV fluids started. With the multiple urethral stones, patient requires transfer to facility with urology for possible intervention. Patient has seen urology at [facility] in the past. Patient also has a liver mass on CT and ultrasound is recommended. US is pending. 05/19/17 19:[address] Price at [facility] and she has accepted the patient under Dr. Gustafson's service. 05/19/17 20:15 Callback from [facility]. With the slight hypotension, [facility] hospitalist is concerned that patient would need ICU and recommends speaking to ICU attending. Spoke to Dr. Allen (ICU attending) and he has accepted patient, but no ICU beds are available at [facility]. Pt's MAP has reamined in the 's and he does not require any pressors at this time. 05/19/17 22:[address] Delgado at [facility] and he has accepted patient. Awaiting bed assignment. 05/19/17 22:55 Transport in ED. Pt reevaluated and stable for transfer. RUQ US looking at his liver mass is pending upon discharge. - Vital Signs Vital signs: Temp Pulse Resp BP Pulse Ox 97.9 F 13 90/69 L 05/19/17 15:41 05/19/17 23:20 05/19/17 23:20 - Laboratory Result Diagrams: 05/19/17 16:38 05/19/17 16:38 Laboratory results interpreted by me: 05/19/17 05/19/17 05/19/17 16:38 16:38 17:04 WBC 14.6 H MCHC 36.2 H RDW 17.0 H Seg Neutrophils % 78.7 H Absolute Neutrophils 11.5 H Chloride 90 L BUN 115 H Creatinine 1.61 H Est GFR ( Amer) 50 L Est GFR (Non-Af Amer) 41 L Glucose 131 H Calcium 10.4 H Total Bilirubin 1.5 H Direct Bilirubin 0.6 H AST 64 H Alkaline Phosphatase 179 H Urine Blood MODERATE H Ur Leukocyte Esterase LARGE H - Diagnostic Test Radiology reviewed: Image reviewed, Reports reviewed Radiology results interpreted by me: CT A/P: IMPRESSION: 1. Enlarged prostate. 2. Distended urinary bladder with irregular bladder wall thickening and multiple diverticulae consistent with bladder outlet obstruction. Multiple bladder stones are present. 3. Bilateral mild hydro ureteral nephrosis without evidence of ureteral stone felt to be related to the bladder outlet obstruction. 4. Small nonobstructing stones are seen in both kidneys. 5. 1.5 cm low density mass in the right lobe of the liver. Ultrasound or MRI would prove useful for further evaluation. 6. Mild increased density in the lung bases probably representing atelectasis and scarring. Minimal pneumonia cannot be excluded. 7. Calcification in the perineum at the bases the appearance raising the possibility of urethral stones or stones a urethral diverticula. 8. Small bilateral renal cysts. 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 Note - Critical Care Note Total time excluding time spent on procedures (mins): 45 Discharge - Discharge Clinical Impression: Urethral stone, Acute kidney injury UTI (urinary tract infection) Qualifiers: Urinary tract infection type: site unspecified Hematuria presence: with hematuria Qualified Code(s): N39.0 - Urinary tract infection, site not specified Sepsis Qualifiers: Sepsis type: sepsis due to unspecified organism Qualified Code(s): A41.9 - Sepsis, unspecified organism Condition: Stable Disposition: [facility] Referrals: RENE BOSCH MD [Primary Care Provider] - Follow up as needed
[2017-05-19 16:50] LABS: ABSOLUTE BASOPHILS # (AUTO) 0.1 10^3/uL (0.0-0.2); ABSOLUTE LYMPHOCYTES (AUTO) 1.9 10^3/uL (0.5-4.7); ABSOLUTE MONOCYTES (AUTO) 1.1 10^3/uL (0.1-1.4); ABSOLUTE NEUT (AUTO) 11.5 10^3/uL (1.7-8.2); BASOPHILS % (AUTO) 0.5 % (0-2); EOSINOPHILS % (AUTO) 0.2 % (0-6); HEMATOCRIT 44.4 % (37.9-51.0); HEMOGLOBIN 16.1 g/dL (13.5-17.0); LYMPHOCYTES % (AUTO) 13.1 % (13-45); MEAN CORPUSCULAR HEMOGLOBIN 31.9 pg (27.0-33.4); MEAN CORPUSCULAR HGB CONC 36.2 g/dL (32.0-36.0); MEAN CORPUSCULAR VOLUME 88 fl (80-97); MONOCYTES % (AUTO) 7.5 % (3-13); PLATELET COUNT 320 10^3/uL (150-450); RED BLOOD COUNT 5.04 10^6/uL (4.35-5.55); SEGMENTED NEUTROPHILS % (AUTO) 78.7 % (42-78); TOTAL CELLS COUNTED % (AUTO) 100 %; WHITE BLOOD COUNT 14.6 10^3/uL (4.0-10.5)
[2017-05-19 17:14] LABS: ALANINE AMINOTRANSFERASE 64 U/L (21-72); ALBUMIN 4.2 g/dL (3.5-5.0); ALKALINE PHOSPHATASE 179 U/L (38-126); ANION GAP 18 (5-19); ASPARTATE AMINO TRANSFERASE 64 U/L (17-59); BILIRUBIN,DIRECT 0.6 mg/dL (0.0-0.4); BILIRUBIN,TOTAL 1.5 mg/dL (0.2-1.3); BLOOD UREA NITROGEN 115 mg/dL (7-20); CALCIUM 10.4 mg/dL (8.4-10.2); CARBON DIOXIDE 30 mmol/L (22-30); CHLORIDE 90 mmol/L (98-107); GLUCOSE 131 mg/dL (75-110); SODIUM 138.3 mmol/L (137-145); TOTAL PROTEIN 8.1 g/dL (6.3-8.2)
[2017-05-19 17:23] LABS: APPEARANCE,URINE CLOUDY; BILIRUBIN,URINE NEGATIVE (NEGATIVE); COLOR,URINE YELLOW; GLUCOSE, URINE NEGATIVE (NEGATIVE); KETONES,URINE NEGATIVE (NEGATIVE); LEUKOCYTE ESTERASE,URINE LARGE (NEGATIVE); NITRITE,URINE NEGATIVE (NEGATIVE); PROTEIN,URINE NEGATIVE (NEGATIVE); URINE SPECIFIC GRAVITY 1.008; UROBILINOGEN,URINE NEGATIVE mg/dL (<2.0)
[2017-05-19] MEDS ORDERED: CEFTRIAXONE 1 GM/D5W RTU 1 GM/50 ML RTUPB IV ONE (17:49)
--- NOTE | 2017-05-19 18:29 | RADIOLOGY REPORT (SQ) ---
EXAM DESCRIPTION: CT ABD/PELVIS WITH IV ONLY COMPLETED DATE/TIME: 05/19/2017 6:04 pm REASON FOR STUDY: RLQ tenderness COMPARISON: 07/25/2016 TECHNIQUE: CT scan of the abdomen and pelvis performed using helical scanning technique with dynamic intravenous contrast injection. No oral contrast. Images reviewed with lung, soft tissue, and bone windows. Reconstructed coronal and sagittal MPR images reviewed. Delayed images for evaluation of the urinary system also acquired. All images stored on PACS. All CT scanners at this facility use dose modulation, iterative reconstruction, and/or weight based d osing when appropriate to reduce radiation dose to as low as reasonably achievable (ALARA). [facility]: Dose Right [facility]: CareDose [facility]: Dose Right [facility]: Teradose 4D [facility]: Verified Identity Pass CONTRAST TYPE AND DOSE: contrast/concentration: Isovue 300.00 mg/ml; Total Contrast Delivered: 100.0 ml; Total Saline Delivered: 70.0 ml RENAL FUNCTION: Creatinine 1.41 RADIATION DOSE: CT Rad equipment meets quality standard of care and radiation dose reduction techniq ues were employed. CTDIvol: 5.7 - 8.0 mGy. DLP: 746 mGy-cm.. LIMITATIONS: None. FINDINGS: LOWER CHEST: Mild increased density likely a combination of atelectasis and scarring. Com ponent of minimal pneumonia cannot be excluded. LIVER: 1.5 cm low density mass in the right lobe laterally CT numbers of which are higher than expect ed for simple cyst. This was poorly visualized on the prior study due to lack of contrast but did ap pear to be present and is probably unchanged suggesting benign etiology. Ultrasound or MRI should be considered further evaluation. SPLEEN: Normal size. No focal lesions. PANCREAS: No masses. No significant calcifications. No adjacent inflammation or peripancreatic fluid collections. Pancreatic duct not dilated. GALLBLADDER: No identified stones by CT criteria. No inflammatory changes to suggest cholecystitis. ADRENAL GLANDS: No significant masses or asymmetry. RIGHT KIDNEY AND URETER: Small cysts. No solid masses. 5 mm nonobstructing stone in mid kidney. Mild hydroureteronephrosis felt to be related to bladder outlet obstruction. No ureteral stones are seen. LEFT KIDNEY AND URETER: Small cysts. No solid masses. 2 mm nonobstructing stone in mid kidney. M ild hydroureteronephrosis felt to be related to bladder outlet obstruction. Ureteral stones are seen . AORTA AND VESSELS: No aneurysm. No dissection. Renal arteries, SMA, celiac without stenosis. RETROPERITONEUM: No retroperitoneal adenopathy, hemorrhage or masses. BOWEL AND PERITONEAL CAVITY: No masses or inflammatory changes. No free fluid or peritoneal masses. APPENDIX: Normal. PELVIS: Prostate is enlarged. Bladder is distended and thick walled with bladder trabeculation and m ultiple bladder diverticula. This is consistent with bladder outlet obstruction. Multiple bladder s tones are seen. Calcifications in the perineum along the base of the penis which could be in the ure thra or in a periurethral diverticulum. ABDOMINAL WALL: No masses. No hernias. BONES: No significant or acute findings. OTHER: No other significant finding. IMPRESSION: 1. Enlarged prostate. 2. Distended urinary bladder with irregular bladder wall thickening and multiple diverticulae consis tent with bladder outlet obstruction. Multiple bladder stones are present. 3. Bilateral mild hydro ureteral nephrosis without evidence of ureteral stone felt to be related to the bladder outlet obstruction. 4. Small nonobstructing stones are seen in both kidneys. 5. 1.5 cm low density mass in the right lobe of the liver. Ultrasound or MRI would prove useful for further evaluation. 6. Mild increased density in the lung bases probably representing atelectasis and scarring. Minimal pneumonia cannot be excluded. 7. Calcification in the perineum at the bases the appearance raising the possibility of urethral sto marlin or stones a urethral diverticula. 8. Small bilateral renal cysts. TECHNICAL DOCUMENTATION: JOB ID: [id number] Quality ID # [id number]: Final reports with documentation of one or more dose reduction techniques (e.g., Au tomated exposure control, adjustment of the mA and/or kV according to patient size, use of iterative reconstruction technique) 2010 [employer]- All Rights Reserved
--- NOTE | 2017-05-19 23:11 | RADIOLOGY REPORT (SQ) ---
EXAM DESCRIPTION: U/S ABDOMEN LIMITED W/O DOP CLINICAL HISTORY: 86 years, Male, liver mass on CT, elevated LFTs COMPARISON: CT, same day. FINDINGS: 11.4 cm right kidney with mild/moderate hydronephrosis. Gallbladder, negative sonographic Escamilla's test, 0.5 cm diameter common duct, and 16.7 cm liver appear otherwise of normal size, shape, echotexture, and vascularity. No significant free fluid. Known 1.5 cm mass demonstrated on CT is not sonographically discerned. Pancreas and aorta are obscured. IMPRESSION: 1. Mild/moderate right hydronephrosis. 2. Nonvisualization of a known 1.5 cm liver lesion. Recommend contrast MRI of the abdomen. 3. Obscured pancreas/aorta. 2011 [employer]- All Rights Reserved
[2017-05-19 23:13] VITALS: BP 90/69
== END 2017-05-19 23:15 | disposition short-term general hospital (02) ==
LOC: ER 15:40
DX: N21.1 Calculus in urethra (principal); N21.0 Calculus in bladder; N13.30 Unspecified hydronephrosis; N39.0 Urinary tract infection, site not specified; N17.9 Acute kidney failure, unspecified; R10.31 Right lower quadrant pain; F03.90 Unspecified dementia, unspecified severity, without behavioral disturbance, psychotic disturbance, mood disturbance, and anxiety; I25.10 Atherosclerotic heart disease of native coronary artery without angina pectoris; I10 Essential (primary) hypertension; I95.9 Hypotension, unspecified; R16.0 Hepatomegaly, not elsewhere classified; N40.0 Benign prostatic hyperplasia without lower urinary tract symptoms; Q61.02 Congenital multiple renal cysts
CPT/HCPCS: 99291; 96361; 96365; 96366; 36415; 87040; 87086; 85025; 80053; 81001; 76705; 74177; J7030; J0696

== ENCOUNTER → 2018-07-27 | Outpatient (CLI) | payer MEDICAID, MEDICARE ==
--- NOTE | 2018-07-27 13:17 | RADIOLOGY REPORT (SQ) ---
EXAM DESCRIPTION: CT CHEST WITHOUT COMPLETED DATE/TIME: 07/27/2018 10:34 am REASON FOR STUDY: J44.9 CHRONIC OBSTRUCTIVE PULMONARY DISEASE, UNSPECIFIED J44.9 CHRONIC OBSTRUCTIV E PULMONARY DISEASE, UNSPECIFIED COMPARISON: None. TECHNIQUE: CT scan performed of the chest without intravenous contrast. Images reviewed with lung, soft tissue and bone windows. Reconstructed coronal and sagittal MPR images reviewed. All images st ored on PACS. All CT scanners at this facility use dose modulation, iterative reconstruction, and/or weight based d osing when appropriate to reduce radiation dose to as low as reasonably achievable (ALARA). [facility]: Dose Right [facility]: CareDose [facility]: Dose Right [facility]: Teradose 4D [facility]: Smart [employer] RADIATION DOSE: CT Rad equipment meets quality standard of care and radiation dose reduction techniq ues were employed. CTDIvol: 12.0 mGy. DLP: 461 mGy-cm. mGy. LIMITATIONS: No technical limitations. FINDINGS: LUNGS AND PLEURA: There is limited atelectasis in the right base. No masses or acute infi ltrates. No pleural effusions. HILAR AND MEDIASTINAL STRUCTURES: No identified masses or abnormal nodes. No obvious aneurysm. HEART AND VASCULAR STRUCTURES: Cardiomegaly. No aneurysm. No pericardial effusion. UPPER ABDOMEN: No significant findings. Limited exam. THYROID AND OTHER SOFT TISSUES: No masses. No adenopathy. BONES: No significant finding. HARDWARE: None in the chest. OTHER: No other significant findings. IMPRESSION: Cardiomegaly. No pulmonary edema. Subsegmental atelectasis in the right lower lobe. TECHNICAL DOCUMENTATION: JOB ID: [id number] Quality ID # [id number]: Final reports with documentation of one or more dose reduction techniques (e.g., Au tomated exposure control, adjustment of the mA and/or kV according to patient size, use of iterative reconstruction technique) 2010 [employer]- All Rights Reserved Reading location - IP/workstation name: [email or web address]
== END ==
LOC: RAD 09:54
PROVIDERS: ATTEND Internal Medicine Pulmonary Disease
DX: J44.9 Chronic obstructive pulmonary disease, unspecified (principal)
CPT/HCPCS: 71250

== ENCOUNTER 2018-09-03 17:42 | Inpatient (IN) | payer MEDICARE ==
--- NOTE | 2018-09-03 18:10 | RADIOLOGY REPORT (SQ) ---
EXAM DESCRIPTION: CT HEAD WITHOUT COMPLETED DATE/TIME: 09/03/2018 5:55 pm REASON FOR STUDY: bed 20 stroke alert COMPARISON: None. TECHNIQUE: Axial images acquired through the brain without intravenous contrast. Images reviewed wi th bone, brain and subdural windows. Additional sagittal and coronal reconstructions were generated. Images stored on PACS. All CT scanners at this facility use dose modulation, iterative reconstruction, and/or weight based d osing when appropriate to reduce radiation dose to as low as reasonably achievable (ALARA). [facility]: Dose Right [facility]: CareDose [facility]: Dose Right [facility]: Teradose 4D [facility]: [employer] RADIATION DOSE: CT Rad equipment meets quality standard of care and radiation dose reduction techniq ues were employed. CTDIvol: 53.2 mGy. DLP: 1044 mGy-cm. mGy. LIMITATIONS: None. FINDINGS: VENTRICLES: Prominent. CEREBRUM: No masses. No hemorrhage. No midline shift. Areas of low density in the white matter mos t likely due to chronic micro-vascular ischemic change. No evidence for acute infarction. CEREBELLUM: No masses. No hemorrhage. No alteration of density. No evidence for acute infarction. EXTRAAXIAL SPACES: Mild age-related involutional change. No fluid collections. No masses. ORBITS AND GLOBE: No intra- or extraconal masses. Normal contour of globe without masses. CALVARIUM: No fracture. PARANASAL SINUSES: No fluid or mucosal thickening. SOFT TISSUES: No mass or hematoma. OTHER: No other significant finding. IMPRESSION: MILD CHRONIC CHANGES OF ATROPHY AND MICROVASCULAR ISCHEMIA. NO ACUTE PROCESS. EVIDENCE OF ACUTE STROKE: NO. COMMENT: Pertinent positive or negative findings of the imaging study reported as a CRITICAL EXAM virgie Sexton (charge nurse) at18:02 on 09/03/2018. Category of Critical Exam: 1 TECHNICAL DOCUMENTATION: JOB ID: [id number] Quality ID # [id number]: Final reports with documentation of one or more dose reduction techniques (e.g., Au tomated exposure control, adjustment of the mA and/or kV according to patient size, use of iterative reconstruction technique) 2010 [employer]- All Rights Reserved Reading location - IP/workstation name: [email or web address]
--- NOTE | 2018-09-03 18:17 | RADIOLOGY REPORT (SQ) ---
EXAM DESCRIPTION: CHEST SINGLE VIEW COMPLETED DATE/TIME: 09/03/2018 6:02 pm REASON FOR STUDY: bed 20 stroke alert COMPARISON: 07/25/2016 EXAM PARAMETERS: NUMBER OF VIEWS: One view. TECHNIQUE: Single frontal radiographic view of the chest acquired. RADIATION DOSE: NA LIMITATIONS: Patient positioning FINDINGS: LUNGS AND PLEURA: No opacities, masses or pneumothorax. No pleural effusion. MEDIASTINUM AND HILAR STRUCTURES: Unremarkable HEART AND VASCULAR STRUCTURES: Borderline cardiomegaly is present. BONES: Osteopenia. No acute findings present. HARDWARE: None in the chest. OTHER: No other significant finding. IMPRESSION: NO ACUTE RADIOGRAPHIC FINDING IN THE CHEST. TECHNICAL DOCUMENTATION: JOB ID: [id number] [employer]- All Rights Reserved Reading location - IP/workstation name: [email or web address]
[2018-09-03 18:30] LABS: ABSOLUTE MONOCYTES (AUTO) 0.7 10^3/uL (0.1-1.4); ABSOLUTE NEUT (AUTO) 7.9 10^3/uL (1.7-8.2); BASOPHILS % (AUTO) 0.3 % (0-2); EOSINOPHILS % (AUTO) 0.1 % (0-6); HEMATOCRIT 40.2 % (37.9-51.0); HEMOGLOBIN 14.5 g/dL (13.5-17.0); MEAN CORPUSCULAR HEMOGLOBIN 33.6 pg (27.0-33.4); MEAN CORPUSCULAR HGB CONC 36.1 g/dL (32.0-36.0); MEAN CORPUSCULAR VOLUME 93 fl (80-97); PLATELET COUNT 266 10^3/uL (150-450); RED BLOOD COUNT 4.31 10^6/uL (4.35-5.55); RED CELL DISTRIBUTION WIDTH 13.8 % (11.5-14.0); SEGMENTED NEUTROPHILS % (AUTO) 82.6 % (42-78); TOTAL CELLS COUNTED % (AUTO) 100 %; WHITE BLOOD COUNT 9.5 10^3/uL (4.0-10.5)
[2018-09-03 18:31] LABS: INTERNATIONAL RATION (INR) 1.02; PROTHROMBIN TIME 13.9 SEC (11.4-15.4)
[2018-09-03 18:32] LABS: PARTIAL THROMBOPLASTIN TIME 30.2 SEC (23.5-35.8)
[2018-09-03] MEDS ORDERED: ALTEPLASE INJ 100 MG VIAL IV ONE (18:42)
[2018-09-03 19:17] LABS: ALANINE AMINOTRANSFERASE < 6 U/L (21-72); ALBUMIN 5.1 g/dL (3.5-5.0); ALKALINE PHOSPHATASE 103 U/L (38-126); ANION GAP 12 (5-19); ASPARTATE AMINO TRANSFERASE 105 U/L (17-59); BILIRUBIN,DIRECT 2.8 mg/dL (0.0-0.4); BILIRUBIN,TOTAL 3.6 mg/dL (0.2-1.3); BLOOD UREA NITROGEN 31 mg/dL (7-20); CALCIUM 9.2 mg/dL (8.4-10.2); CARBON DIOXIDE 22 mmol/L (22-30); CHLORIDE 97 mmol/L (98-107); CREATINE KINASE 133 U/L (55-170); GLUCOSE 126 mg/dL (75-110); SODIUM 130.6 mmol/L (137-145); TOTAL PROTEIN 10.2 g/dL (6.3-8.2)
[2018-09-03 19:20] LABS: POTASSIUM 9.8 mmol/L (3.6-5.0)
[2018-09-03 19:29] LABS: CREATINE KINASE MB 1.46 ng/mL (<4.55)
--- NOTE | 2018-09-03 19:31 | RADIOLOGY REPORT (SQ) ---
EXAM DESCRIPTION: CTA HEAD; CTA NECK COMPLETED DATE/TIME: 09/03/2018 7:15 pm REASON FOR STUDY: left sided winifred-paresis, look for LVO COMPARISON: None. TECHNIQUE: Post IV contrast scanning, thin section axial imaging through the brain to evaluate the a rterial structures. Source and MIP images are saved and reviewed on PACS. Advanced 3D imaging as volume-rendering, MIPs, SSD performed? yes All CT scanners at this facility use dose modulation, iterative reconstruction, and/or weight based d osing when appropriate to reduce radiation dose to as low as reasonably achievable (ALARA). [facility]: Dose Right [facility]: CareDose [facility]: Dose Right [facility]: Teradose 4D [facility]: [employer] CONTRAST TYPE AND DOSE: contrast/concentration: Isovue 350.00 mg/ml; Total Contrast Delivered: 70.0 ml; Total Saline Delivered: 68.0 ml 70 mL Omnipaque 350- low osmolar. RENAL FUNCTION: Not obtained LIMITATIONS: None. FINDINGS: [place]: The anterior, middle, posterior cerebral arteries are all patent. No ev idence of aneurysm or focal stenosis. POSTERIOR CIRCULATION: The distal vertebral arteries are patent as is the basilar artery. No aneurysm . BRAIN: No gross enhancing lesions as visualized. The superior cerebral hemispheres are not included in the field of view. BONES: Intact as visualized. SINUSES: No fluid or mucosal thickening. Neck vessels: The no evidence of significant stenosis or obstruction in the carotid or vertebral art eries of the neck. OTHER: No other significant finding. IMPRESSION: NO CTA EVIDENCE OF STENOSIS OR ANEURYSM OF THE [place] OR NECK. TECHNICAL DOCUMENTATION: JOB ID: [id number] Quality ID # 436: Final reports with documentation of one or more dose reduction techniques (e.g., Au tomated exposure control, adjustment of the mA and/or kV according to patient size, use of iterative reconstruction technique) 2010 [employer]- All Rights Reserved Reading location - IP/workstation name: [email or web address]
--- NOTE | 2018-09-03 19:31 | RADIOLOGY REPORT (SQ) ---
EXAM DESCRIPTION: CTA HEAD; CTA NECK COMPLETED DATE/TIME: 09/03/2018 7:15 pm REASON FOR STUDY: left sided winifred-paresis, look for LVO COMPARISON: None. TECHNIQUE: Post IV contrast scanning, thin section axial imaging through the brain to evaluate the a rterial structures. Source and MIP images are saved and reviewed on PACS. Advanced 3D imaging as volume-rendering, MIPs, SSD performed? yes All CT scanners at this facility use dose modulation, iterative reconstruction, and/or weight based d osing when appropriate to reduce radiation dose to as low as reasonably achievable (ALARA). [facility]: Dose Right [facility]: CareDose [facility]: Dose Right [facility]: Teradose 4D [facility]: [employer] CONTRAST TYPE AND DOSE: contrast/concentration: Isovue 350.00 mg/ml; Total Contrast Delivered: 70.0 ml; Total Saline Delivered: 68.0 ml 70 mL Omnipaque 350- low osmolar. RENAL FUNCTION: Not obtained LIMITATIONS: None. FINDINGS: [place]: The anterior, middle, posterior cerebral arteries are all patent. No ev idence of aneurysm or focal stenosis. POSTERIOR CIRCULATION: The distal vertebral arteries are patent as is the basilar artery. No aneurysm . BRAIN: No gross enhancing lesions as visualized. The superior cerebral hemispheres are not included in the field of view. BONES: Intact as visualized. SINUSES: No fluid or mucosal thickening. Neck vessels: The no evidence of significant stenosis or obstruction in the carotid or vertebral art eries of the neck. OTHER: No other significant finding. IMPRESSION: NO CTA EVIDENCE OF STENOSIS OR ANEURYSM OF THE [place] OR NECK. TECHNICAL DOCUMENTATION: JOB ID: [id number] Quality ID # 436: Final reports with documentation of one or more dose reduction techniques (e.g., Au tomated exposure control, adjustment of the mA and/or kV according to patient size, use of iterative reconstruction technique) 2010 [employer]- All Rights Reserved Reading location - IP/workstation name: [email or web address]
[2018-09-03 19:36] LABS: TROPONIN I 0.078 ng/mL
--- NOTE | 2018-09-03 20:51 | ER Document Report ---
Entered by MADDIE SCHWARTZ SCRIBE 09/03/18 1818 Acting as scribe for:MARCELINO SMALLWOOD DO ED Neuro Symptoms/Deficit - General Stated Complaint: POSSIBLE STROKE Mode of Arrival: Medic Information source: Relative, Emergency Med Personnel, Outside Facility Records Cannot obtain history due to: Altered mental status Notes: Patient is an 87-year-old male who presents to the emergency department today after being found [facility] the [facility] by [facility]. According to EMS, the patient indicated to nursing staff at his residence that he hit his head during the fall. On arrival here, the patient is completely nonverbal. According to EMS, nursing staff stated that they checked on the patient approximately 30 minutes prior to finding him down and he was seemingly normal. Estimated time of last known well is 1700. According to penitentiary records, the patient is oriented to person and place as well as verbal at baseline. According to penitentiary notes, the patient has no history of CT/CVA, head bleed, or surgery within the last 3 months. The nephew of the patient has arrived and is able to provide some additional history. Nephew states that he is normally verbal and able to answer most questions at baseline. Nephew called the patient by name without any response from the patient. Nephew states that normally the patient would "perk up" when he did that. Nephew was informed about the risks and benefits of TPA and he expresses interest in receiving the TPA "if there is a chance he will get better". TRAVEL OUTSIDE OF THE [place] IN LAST 30 DAYS: No - Related Data Allergies/Adverse Reactions: adhesive tape Adverse Reaction (Intermediate, Verified 08/16/16 13:13) SKIN IRRITATION Past Medical History - General Information source: Relative, [facility] Records, Outside Facility Records Cannot obtain history due to: Altered mental status - Social History Smoking Status: Never Smoker Cigarette use (# per day): No Frequency of alcohol use: None Drug Abuse: None Lives with: [facility] Family History: None, Other - Unobtainable - Past Medical History Cardiac Medical History: Reports: Hx Atrial Fibrillation, Hx Coronary Artery Disease, Hx Hypercholesterolemia, Hx Hypertension Renal/ Medical History: Reports: Hx Benign Prostatic Hyperplasia, Hx Kidney Stones Psychiatric Medical History: Reports: Hx Dementia Past Surgical History: Reports: Other - "Prostate resection" - Immunizations Hx Diphtheria, Pertussis, Tetanus Vaccination: No Review of Systems - Review of Systems -: Yes ROS unobtainable due to patient's medical condition Physical Exam - Notes Notes: PHYSICAL EXAM Bedside associate professor physician interpretation: Normal sinus rhythm with a rate of 92 per my interpretation. Pulse oximeter at bedside shows a saturation of 99% with good waveform on room air, no hypoxia per my interpretation. GENERAL: Alert. Non-verbal, does not answer any questions or speak throughout interaction. Does nod his head yes for yes/no questions but his answers are not consistent. HEAD: Normocephalic, atraumatic. EYES: Pupils equal, round, and reactive to light. Extraocular movements intact. Unable to assess visual piedra due to inability to cooperate. ENT: Oral mucosa moist, tongue midline. NECK: Full range of motion. Supple. Trachea midline. LUNGS: Clear to auscultation bilaterally, no wheezes, rales, or rhonchi. No respiratory distress. HEART: Regular rate and rhythm. No murmurs, gallops, or rubs. EXTREMITIES: Moves left upper and lower extremities spontaneously, does not move right upper or right lower extremities. No edema, radial and dorsalis pedis pulses 2/4 bilaterally. No cyanosis. NEUROLOGICAL: Biceps and patellar DTRs 2+ bilaterally. Patient spontaneously moves left upper and left lower extremities however he is unable to cooperate with any strength testing against gravity on the right or in the left lower extremity. Patient has good inhalation therapy teacher strength on the left, unable to squeeze on the right. Patient does not move right upper or right lower extremity. Patient spontaneously moves toes on the left when the bottom of the foot is stimulated, there is no movement of the right toes with stimulation. With sharp/dull testing, the patient grimaces when the left side is pricked, patient does not withdraw or grimace with any stimulation on the right side. Right-sided facial droop. Unable to cooperate with smiling. Nonverbal. Patient acknowledges people on the right side but prefers the left. Unable to test visual piedra due to inability to cooperate. SKIN: Warm, dry, normal turgor. No rashes or lesions noted. Course - Re-evaluation Re-evalutation: 09/03/18 21:10 Patient was unable to give his own consent for TPA. Nephew Parish was present, discussed risks and benefits of TPA and he gave consent for the patient received TPA stating that the patient is normally functional but does have some decreased intelligence that would make it very difficult for him to deal with being permanently disabled. States he feels that his uncle would want to receive the medication. He was made aware of an approximately 80% risk of intracranial hemorrhage and possible after receiving this medication. CT scan of the head did not show any large vessel occlusion, we had some difficulty obtaining IV access but patient was eventually sent for CT angiogram of the head and the neck which ruled out large vessel occlusion, CBC unremarkable, coags normal, chemistries were hemolyzed twice, they are rather abnormal at this time with a potassium of 9.8 however this does not correlate with his EKG, suspect this is due to hemolysis. I have requested that they redraw with a straight stick. Patient's deficit was so severe that it was difficult to get an accurate NIH stroke score as he could not cooperate with almost any of the testing. TPA was given, patient has been rechecked multiple times, patient is having some increase in his ability to answer questions, he apparently said no when this is the first time he has spoken at all since he arrived here. Patient is also starting to have some spontaneous movements of his right foot though he is still not following commands on the right. Patient was discussed with Dr. Oconnell and will be placed in the ICU as per hospital policy for 24 hours after receiving TPA. - Laboratory Result Diagrams: 09/03/18 18:18 09/03/18 19:30 - EKG Interpretation by Me Additional EKG results interpreted by me: 09/03/18 21:11 EKG shows sinus rhythm at a rate of 92, first-degree AV block, no ST segment mayelin vations or depressions, no T wave inversions, T wave flattening in aVL, normal axis per my interpretation. Critical Care Note - Critical Care Note Total time excluding time spent on procedures (mins): 65 ED [employer]te[employer]ase [employer]/Exc Criteria - Date/Time patient last known well: Date/Time: 09/03/2018 17:00 - Inclusion Criteria: 1: Patient presented to ED within 3 hours of acute ischemic stroke symptom onset? -: Yes 2: Did baseline CT exclude intracranial hemorrhage and/or other risk factors? -: Yes 3: Is the age of the patient 18 years of age or greater? -: Yes : If any of the above questions are answered "NO" then stop, patient is not a candidate for Alteplase, : If all of the above questions are answered "YES" then continue with Exclusion Criteria. - Exclusion Criteria: 1: Is there evidence of intracranial hemorrhage on baseline CT? -: No 2: Is there suspicion of subarachnoid hemorrhage (even if CT negative)? -: No 3: Is there a history of serious head trauma, recent previous stroke or CT within 3 months? -: No 4: Does the patient have a clinical presentation consistent with CT or post-CT pericarditis? -: No 5: Is there history of intracranial hemorrhage? -: No 6: On repeated measurement is Systolic BP greater than 185mmHg or Diastolic BP greater that 110 mmHg and is aggressive treatment needed to reduce blood pressure to these limits (e.g. constant infusion of an anti-hypertensive)? -: No 7: Did the patient awake with stroke symptoms? -: No 8: Has the patient had a lumbar puncture or an arterial puncture at a non- compressile site within 7 days? -: No 9: With in the last 14 days did the patient have surgery or major trauma? -: No 10: Is the patient or less than 2 weeks? -: No 11: Was there any active bleeding or acute trauma? -: No 12: Does the patient have intracranial neoplasm, arteriovenous malformation or aneurysm? -: No 13: Does the patient have abnormal glucose (less than 50 or greater than 400mg/dl)? Record glucose in Comment. -: No 14: Patient has rapidly improving symptoms at the time Alteplase is to be Administered. -: No 15: Does the patient have any risks for bleeding, including but not limited to: a.: Current use of Coumadin with PT greater than 15 seconds or INR greater than 1.7. b.: Current use of Pradaxa (Dabigatran). c.: Heparin administereed within the past 48 hours and PTT elevated. d.: Platelet count less than 100,000/mm. e.: Major surgery or serious trauma within 14 days. f.: Gastrointestinal or gynecological urinary bleeding within 14 days. g.: Myocardial Infarction (CT) within 3 months. -: No : If the answer to any of the above questions is "YES" then stop, the patient is not a candidate for Alteplase. : If the answer to all of the above questions is "NO" then the patient may be eligible for the Administration of Alteplase. : If the patient is noted to have seizure activity at onset of Stroke symptoms; Consult Neurologist for further evaluation. - The patient is: -: Included and is eligible to receive Alteplase. *Initiate bed placement at higher level of care* --: Yes Reviewed risks & benefits of thrombolytic therapy: I have reviewed the risks and benefits of thrombolytic therapy with the patient and/or his/her family. Yes - Spoke wth nephew, requests TPA -: Excluded and not eligible to receive Alteplase for the above exclusions. -: Excluded and not eligible to receive Alteplase for other reasons (specify in comments): - Diagnosis of TIA: -: Patient presented with transient symptoms that are now resolved and no other neurologic findings are currently present. List symptoms in comments. -: Patient is NOT a candidate for tPA. -: ____(put name in comment) has been consulted for admission and continued evaluation of risk factor assessment. ED NIH Stroke Scale - NIH Stroke Scale When completed:: Before Alteplase *: 1. NIH scale should be completed with appropriate accompanying assessment tools. *: 2. The NIH should reflect what the patient is capable of doing and should not be coached by the clinician. 1a. Level of Consciousness: 0=Alert;keenly responsive -: 1=Drowsy -: 2=Obtunded -: 3=Coma/unresponsive or reflex to noxious stimuli. 1a. Responses: 0 1b. Orientation Questions: a. What month is it? -: b. How old are you? -: 0=Answers both questions correctly. -: 1=Answers one question correctly or patient is intubated or has orotracheal trauma. -: 2=Answers neither question correctly. 1b. Responses: 2 - Completely nonverbal, cannot answer 1c. Response to commands: a. Open and close eyes? -: b. Internal Combustion Engine Subassembler and release hand? -: Credit is given despite weakness. Demonstration of task is permitted. Substitute command if hands cannot be used. -: 0=Performs both tasks correctly -: 1=Performs one task correctly -: 2=Performs neither task correctly 1c. Responses: 2 - Can only follow command on the left, right hand does not move. 2. Gaze: Establish eye contact and instruct patient to "Follow my finger" -: 0=Normal -: 1=Partial gaze palsy. Gaze is abnormal in one or both eyes, but where forced deviation or total gaze paresis is not present. -: 2=Forced deviation or total gaze paresis. 2. Responses: 0 3. Visual Piedra: Sees fingers in all four quadrants. -: 0=No visual loss. -: 1=Partial hemianopsia. -: 2=Complete hemianopsia. -: 3=Bilateral hemianopsia (including Cortical blindness) 3. Responses: 0 - Does not appear to have vision loss but difficult to fully test 4. Facial Movement: Instruct patient to: -: a. Show me your teeth -: b. Raise your eyebrows -: c. Close your eyes -: d. Smile -: 0=Normal symmetrical movement -: 1=Minor paralysis (flattened nasolabial fold, asymmetry on smiling). -: 2=Partial paralysis (total or near total paralysis of lower face). -: 3=Complete paralysis of upper and lower face 4. Responses: 3 - Right-sided facial droop 5. Motor functions (left arm): Alternate sides and extend each arm with palms down (90 degrees if sitting or 45 degrees for supine). -: 0=No drift;limb holds for full 10 seconds. -: 1=Drift; limb holds but drifts down before full 10 seconds, but does not hit bed. -: 2=Some effort against gravity; limb cannot get to or maintain position. -: 3=No effort against gravity; limb falls. -: 4=No movement. -: UN=Amputation, joint fusion, explain in comments. 5. Responses (left arm): 0 5. Motor Functions (right arm): Alternate sides and extend each arm with palms down (90 degrees if sitting or 45 degrees for supine). -: 0=No drift;limb holds for full 10 seconds. -: 1=Drift; limb holds but drifts down before full 10 seconds, but does not hit bed. -: 2=Some effort against gravity; limb cannot get to or maintain position. -: 3=No effort against gravity; limb falls. -: 4=No movement. -: UN=Amputation, joint fusion, explain in comments. 5. Responses (right arm): 4 6. Motor Functions (left leg): With patient lying supine, alternate sides and extend each leg (30 degrees always while supine). -: 0=No drift, leg holds position for full 5 seconds -: 1=Drift; leg falls before full 5 seconds but does not hit bed. -: 2=Some effort against gravity, leg falls to bed but some effort against gravity. -: 3=No effort against gravity, leg falls to bed immediately. -: 4=No movement. -: UN=Amputation, joint fusion; explain in comments. 6. Responses (left leg): 0 6. Motor Functions (right leg): With patient lying supine, alternate sides and extend each leg (30 degrees always while supine). -: 0=No drift, leg holds position for full 5 seconds -: 1=Drift; leg falls before full 5 seconds but does not hit bed. -: 2=Some effort against gravity, leg falls to bed but some effort against gravity. -: 3=No effort against gravity, leg falls to bed immediately. -: 4=No movement. -: UN=Amputation, joint fusion; explain in comments. 6. Responses (right leg): 4 7. Limb Ataxia: With eyes open instruct patient to: -: a. "Touch your finger to your nose". -: b. "Touch your heel to your osman" -: 0=Absent -: 1=Present in one limb. -: 2=Present in two limbs. -: UN=Amputation or joint fusion; explain in comments. 7. Responses: UN - Does not attempt another side, will not follow the command. 8. Sensory: Test sensation using pinprick or noxious stimuli. Test as many body parts as possible. -: 0=Normal;no sensory loss -: 1=Mile to moderate sensory loss (patient feels pin prick but is less sharp on affected side). -: 2=Severe or total sensory loss. 8. Responses: 2 - Does not respond to painful stimuli on the right side of his body 9. Best Language: Instruct patient to: -: a. "Describe what you see in this picture." -: b. "Name the items in this picture." -: c. "Read these sentences." -: 0=No aphasia, normal -: 1=Mild to moderate aphasia. -: 2=Severe aphasia -: 3=Mute, global aphasia, no usable speech or auditory comprehension. 9. Responses: 3 - mute 10. Articulation, Dysarthia: Instruct patient to: -: "Read these words" or "Repeat these words" -: 0=Normal -: 1=Mild to moderate; patient may slur some words but can be understood without difficulty. -: 2=Severe; patients speech so slurred as to be unintelligible in the absence of dysphasia. -: UN=Intubated or other physical barrier, explain in comments. 10. Responses: 2 - No attempt made at speech whatsoever. 11. Extinction or inattention: 0=No abnormality -: 1= Visual, tactile, auditory, spatial, or personal inattention or extinction to bilateral simulation in one or the sensory modalities. -: 2=Profound winifred-inattention or winifred-inattention to more than one modality; does not recognize own hand. 11. Responses: 0 Total Score: 22 Discharge - Discharge Clinical Impression: Acute CVA (cerebrovascular accident) Condition: Serious Disposition: ADMITTED INPATIENT Admitting Provider: Kourtney (Hospitalist) Unit Admitted: ICU I personally performed the services described in the documentation, reviewed and edited the documentation which was dictated to the scribe in my presence, and it accurately records my words and actions.
--- NOTE | 2018-09-03 20:56 | EKG REPORT ---
SEVERITY:- ABNORMAL ECG - SINUS RHYTHM CONSIDER ANTEROSEPTAL INFARCT BORDERLINE PROLONGED QT INTERVAL : Confirmed by: Emily Nunez MD 03-Sep-2018 20:54:56
[2018-09-03] MEDS ORDERED: GLUCAGON,HUMAN RECOMB 1 MG INJ SUBCUT PRN (21:27)
[2018-09-03] MEDS ORDERED: DEXTROSE 50%-WATER 25 GM/50 ML DISP.SYRIN IV PRN ×2 (21:27)
[2018-09-03] MEDS ORDERED: DEXTROSE 40% GEL 15 GM TUBE PO PRN ×2 (21:27)
[2018-09-03] MEDS ORDERED: ACETAMINOPHEN 650 MG SUPP.RECT PR PRN (21:27)
[2018-09-03] MEDS ORDERED: ONDANSETRON HCL INJ/PF 4 MG/2 ML SDV IV PRN (21:33)
[2018-09-03 21:59] LABS: ALANINE AMINOTRANSFERASE 27 U/L (21-72); ALBUMIN 3.7 g/dL (3.5-5.0); ALKALINE PHOSPHATASE 106 U/L (38-126); ANION GAP 11 (5-19); ASPARTATE AMINO TRANSFERASE 44 U/L (17-59); BILIRUBIN,DIRECT 0.6 mg/dL (0.0-0.4); BLOOD UREA NITROGEN 30 mg/dL (7-20); CALCIUM 9.4 mg/dL (8.4-10.2); CARBON DIOXIDE 25 mmol/L (22-30); CHLORIDE 97 mmol/L (98-107); GLUCOSE 124 mg/dL (75-110); SODIUM 132.6 mmol/L (137-145); TOTAL PROTEIN 7.7 g/dL (6.3-8.2)
[2018-09-03] MEDS: HEPARIN SOD (PORCINE) 5,000 UNIT/ML 1 ML SYRINGE SUBCUT SCH (22:01)
[2018-09-03] MEDS: FAMOTIDINE INJ/PF 20 MG/2 ML SDV IV SCH (22:09)
[2018-09-03] MEDS: NORMAL SALINE 1000 ML 1,000 ML IV PRN (22:10)
[2018-09-04 01:14] LABS: APPEARANCE,URINE CLOUDY; BILIRUBIN,URINE NEGATIVE (NEGATIVE); GLUCOSE, URINE NEGATIVE (NEGATIVE); KETONES,URINE NEGATIVE (NEGATIVE); LEUKOCYTE ESTERASE,URINE LARGE (NEGATIVE); NITRITE,URINE NEGATIVE (NEGATIVE); PROTEIN,URINE 100 mg/dL (NEGATIVE); URINE SPECIFIC GRAVITY 1.034
[2018-09-04 01:15] LABS: COLOR,URINE YELLOW
--- NOTE | 2018-09-04 03:12 | PDOC H&P ---
History of Present Illness Admission Date/PCP: 09/03/18 21:03 KRISTA OLIVAREZ MD Patient complains of: Acute stroke symptoms of receptive and expressive aphasia with right-sided flacid weakness History of Present Illness: YAMILE EDMOND is a 87 year old male who was found on the floor at the [facility] at approximately 5:30 PM today, he was noted immediately to have a right- sided flaccid paralysis and expressive and receptive aphasia. The patient had been at his normal baseline at 5 PM when he was checked by the nursing staff on routine assessment. Patient, due to his acute aphasia is unable to communicate any input into his medical record. Patient has no prior history of heart attack or CVA but does have a known history of chronic atrial fibrillation (not currently on anticoagulants). residential staff records indicate that the patient is normally alert, oriented to person and place, appropriately verbally responsive as well as able to move both arms and legs and ambulate without difficulty. In the emergency room the patient was found to have a flaccid paralysis of his right side and complete receptive and expressive aphasia. CT scan of the head showed no evidence of infarction and CTAs of the head and neck showed no large vessel vascular occlusion. Patient was given TPA in the emergency room on the approval of his nephew who is his medical power of environmental attorney. Patient has had no change since getting TPA and is being admitted to the [facility] for stroke care. Past Medical History Past Medical History: Past medical history, past surgical history, social history and family history are obtained from prior records, current records and available family and staff sources to provide the most accurate information obtainable. Cardiac Medical History: Reports: Atrial Fibrillation, Congestive Heart Failure, Coronary Artery Disease, Hyperlipidema, Hypertension Denies: DVT, Myocardial Infarction, Pulmonary Embolism Pulmonary Medical History: Reports: Chronic Obstructive Pulmonary Disease (COPD) Denies: Asthma, Bronchitis, Pneumonia, Tuberculosis EENT Medical History: Denies: Cataracts, Eyes - Does not use corrective lenses Neurological Medical History: Denies: Hemorrhagic CVA, Ischemic CVA, Seizures Endocrine Medical History: Denies: Diabetes Mellitus Type 1, Diabetes Mellitus Type 2, Hyperthyroidism, Hypothyroidism, Obesity Renal/ Medical History: Reports: Other - Benign prostatic hypertrophy Denies: Chronic Kidney Disease, Nephrolithiasis Malignancy Medical History: Reports: None GI Medical History: Denies: Cirrhosis, Crohn's Disease, Gastroesophageal Reflux Disease, Hepatitis, Peptic Ulcer Disease, Ulcerative Colitis Musculoskeltal Medical History: Denies: Arthritis, Gout Skin Medical History: Denies: Eczema, Psoriasis Psychiatric Medical History: Reports: Dementia Denies: Alcohol Dependency, Substance Abuse, Tobacco Dependency Traumatic Medical History: Reports: None Hematology: Reports: Anemia Denies: Bleeding Tendencies Infectious Medical History: Reports: None Past Surgical History Past Surgical History: Past medical history, past surgical history, social history and family history are obtained from prior records, current records and available family and staff sources to provide the most accurate information obtainable. Past Surgical History: Reports: Other - Prostate surgery Social History Information Source: Relative, POA - Power of Religious Educator, [facility] Records, Outside Facility Records Lives with: Jail Smoking Status: Never Smoker Frequency of Alcohol Use: None Hx Recreational Drug Use: No - AMS using medical record Drugs: None Hx Prescription Drug Abuse: No Past Social History Note: Past medical history, past surgical history, social history and family history are obtained from prior records, current records and available family and staff sources to provide the most accurate information obtainable. - Advance Directive Resuscitation Status: Full Code Surrogate healthcare decision maker:: Joanna Alejandro Family History Family History: Past medical history, past surgical history, social history and family history are obtained from prior records, current records and available family and staff sources to provide the most accurate information obtainable. Parental Family History Reviewed: No - Could not be obtained from a reliable source Children Family History Reviewed: No Sibling(s) Family History Reviewed.: No Medication/Allergy Home Medications: Amlodipine Besylate [Norvasc 5 mg Tablet] 5 mg PO DAILY 05/19/17 Doxazosin Mesylate [Cardura 2 mg Tablet] 2 mg PO QHS 05/19/17 Ferrous Sulfate [Feosol 325 mg Tablet] 325 mg PO DAILY 05/19/17 Finasteride [Proscar 5 mg Tablet] 5 mg PO DAILY 05/19/17 Furosemide [Lasix 40 mg Tablet] 80 mg PO BIDACBL 05/19/17 Ipratropium/Albuterol Sulfate [Duoneb 3 ml Ampul] 3 ml NEB RTQ6 05/19/17 Metoprolol Tartrate [Lopressor 100 mg Tablet] 100 mg PO Q12 05/19/17 Spironolactone [Aldactone] 50 mg PO DAILY 05/19/17 Allergies/Adverse Reactions: adhesive tape Adverse Reaction (Intermediate, Verified 08/16/16 13:13) SKIN IRRITATION Review of Systems ROS unobtainable: Other - Due to acute onset expressive and receptive aphasia Physical Exam Vital Signs: Temp Pulse Resp BP Pulse Ox 98.0 F 84 18 116/70 100 09/03/18 19:17 09/03/18 21:05 09/03/18 21:05 09/03/18 21:05 09/03/18 21:05 Intake & Output 09/01/18 09/02/18 09/03/18 23:59 23:59 23:59 Weight 77.6 kg General appearance: PRESENT: no acute distress, well-developed Head exam: PRESENT: atraumatic, normocephalic Eye exam: ABSENT: conjunctival injection, periorbital swelling, scleral icterus Ear exam: PRESENT: normal external ear exam. ABSENT: bleeding, drainage Mouth exam: PRESENT: dry mucosa, neck supple Neck exam: ABSENT: thyromegaly, tracheal deviation Respiratory exam: PRESENT: clear to auscultation francia, symmetrical, unlabored Cardiovascular exam: PRESENT: irregular rhythm. ABSENT: clicks, gallop, rubs Pulses: PRESENT: normal radial pulses, normal dorsalis pedis pul Vascular exam: PRESENT: normal capillary refill. ABSENT: pallor GI/Abdominal exam: PRESENT: normal bowel sounds, soft Rectal exam: PRESENT: deferred Extremities exam: ABSENT: joint swelling, pedal edema Musculoskeletal exam: ABSENT: deformity, dislocation Neurological exam: PRESENT: alert, motor sensory deficit - Patient currently has a mild right hemiparesis involving the face and both upper and lower extremities. There is also noted to be a expressive aphasia for the patient is able to occasionally answer with one-word yes or no and is appropriate with this in response to questions. He also appears to have resolution of his expressive aphasia as he is able to follow simple commands such as "squeeze my fingers"., aphasic - See description of aphasia above Psychiatric exam: PRESENT: appropriate affect, normal mood, other - Exam ex tremely limited by expressive aphasia Skin exam: PRESENT: dry, intact, warm. ABSENT: jaundice, rash, urticaria Results Laboratory Results: 09/03/18 18:18 09/03/18 09/03/18 09/03/18 18:18 18:18 18:50 WBC 9.5 RBC 4.31 L Hgb 14.5 Hct 40.2 MCV 93 MCH 33.6 H MCHC 36.1 H RDW 13.8 Plt Count 266 Seg Neutrophils % 82.6 H Lymphocytes % 10.0 L Monocytes % 7.0 Eosinophils % 0.1 Basophils % 0.3 Absolute Neutrophils 7.9 Absolute Lymphocytes 1.0 Absolute Monocytes 0.7 Absolute Eosinophils 0.0 Absolute Basophils 0.0 Sodium Cancelled 130.6 L Potassium Cancelled 9.8 H* Chloride Cancelled 97 L Carbon Dioxide Cancelled 22 Anion Gap Cancelled 12 BUN Cancelled 31 H Creatinine Cancelled 1.13 Est GFR ( Amer) Cancelled > 60 Est GFR (Non-Af Amer) Cancelled > 60 Glucose Cancelled 126 H Calcium Cancelled 9.2 Total Bilirubin Cancelled 3.6 H AST Cancelled 105 H ALT Cancelled < 6 L Alkaline Phosphatase Cancelled 103 Total Protein Cancelled 10.2 H Albumin Cancelled 5.1 H 09/03/18 09/03/18 09/03/18 18:18 18:18 18:50 Creatine Kinase Cancelled 133 CK-MB (CK-2) Cancelled Troponin I Cancelled 09/03/18 18:50 Creatine Kinase CK-MB (CK-2) 1.46 Troponin I 0.078 Impressions: Chest X-Ray 09/03/18 17:44 IMPRESSION: NO ACUTE RADIOGRAPHIC FINDING IN THE CHEST. Head CT 09/03/18 17:44 IMPRESSION: MILD CHRONIC CHANGES OF ATROPHY AND MICROVASCULAR ISCHEMIA. NO ACUTE PROCESS. EVIDENCE OF ACUTE STROKE: NO. Head CTA 09/03/18 18:22 IMPRESSION: NO CTA EVIDENCE OF STENOSIS OR ANEURYSM OF THE [place] OR NECK. Neck CTA 09/03/18 18:22 IMPRESSION: NO CTA EVIDENCE OF STENOSIS OR ANEURYSM OF THE [place] OR NECK. Assessment and Plan - Diagnosis (1) Acute CVA (cerebrovascular accident) Is this a current diagnosis for this admission?: Yes Plan: Patient is admitted to the stroke protocol. He has been given TPA and will be closely monitored according to the post TPA protocol. (2) Hypertension Qualifiers: Hypertension type: essential hypertension Qualified Code(s): I10 - Essential (primary) hypertension Is this a current diagnosis for this admission?: Yes Plan: The patient's blood pressure be closely monitored and he will be treated for hypertension on as-needed basis with intravenous agents until such time as he is able to swallow oral medications safely. (3) Iron deficiency anemia Qualifiers: Iron deficiency anemia type: inadequate dietary iron intake Qualified Code(s): D50.8 - Other iron deficiency anemias Is this a current diagnosis for this admission?: Yes Plan: The patient's iron supplements will be continued as soon as he is able to take oral medications. (4) Benign prostatic hyperplasia Qualifiers: Lower urinary tract symptom presence: symptoms present Is this a current diagnosis for this admission?: Yes Plan: Patient's urinary output will be monitored during his hospital course and any evidence of urinary retention or other urinary problems will be addressed immediately. - Time Time Spent with patient: 15-24 minutes Medications reviewed and adjusted accordingly: Yes Anticipated discharge: SNF - Inpatient Certification Based on my medical assessment, after consideration of the patient's comorbidities, presenting symptoms, or acuity I expect that the services needed warrant INPATIENT care.: Yes I certify that my determination is in accordance with my understanding of Medicare's requirements for reasonable and necessary INPATIENT services [42 CFR 412.3e].: Yes Medical Necessity: Need Close Monitoring Due to Risk of Patient Decompensation, Need For IV Fluids, Need For Continuous Telemetry Monitoring, Need for N eurological Checks, Risk of Complication if Not Cared For in Hospital
[2018-09-04] MEDS: HEPARIN SOD (PORCINE) 5,000 UNIT/ML 1 ML SYRINGE SUBCUT SCH ×3 (06:03→23:09)
[2018-09-04 06:31] LABS: ABSOLUTE LYMPHOCYTES (AUTO) 1.3 10^3/uL (0.5-4.7); ABSOLUTE NEUT (AUTO) 5.6 10^3/uL (1.7-8.2); BASOPHILS % (AUTO) 0.3 % (0-2); EOSINOPHILS % (AUTO) 0.5 % (0-6); HEMATOCRIT 37.2 % (37.9-51.0); HEMOGLOBIN 13.4 g/dL (13.5-17.0); LYMPHOCYTES % (AUTO) 16.7 % (13-45); MEAN CORPUSCULAR HEMOGLOBIN 34.2 pg (27.0-33.4); MEAN CORPUSCULAR VOLUME 95 fl (80-97); MONOCYTES % (AUTO) 12.1 % (3-13); PLATELET COUNT 217 10^3/uL (150-450); RED BLOOD COUNT 3.91 10^6/uL (4.35-5.55); RED CELL DISTRIBUTION WIDTH 13.7 % (11.5-14.0); SEGMENTED NEUTROPHILS % (AUTO) 70.4 % (42-78); TOTAL CELLS COUNTED % (AUTO) 100 %
[2018-09-04 07:00] LABS: CHOLESTEROL 122.61 mg/dL (0-200); TRIGLYCERIDES 56 mg/dL (<150)
[2018-09-04 07:11] LABS: DIRECT LDL 89 mg/dL (<100)
[2018-09-04] MEDS: NORMAL SALINE 1000 ML 1,000 ML IV PRN (11:17)
[2018-09-04] MEDS: FAMOTIDINE INJ/PF 20 MG/2 ML SDV IV SCH ×2 (11:18→23:09)
--- NOTE | 2018-09-04 16:54 | RADIOLOGY REPORT (SQ) ---
EXAM DESCRIPTION: MRI HEAD WITHOUT COMPLETED DATE/TIME: 09/04/2018 4:10 pm REASON FOR STUDY: acute cva COMPARISON: CT angio brain and [place] 09/03/2018 TECHNIQUE: Multiplanar imaging includes non-contrasted T1, T2, FLAIR, and diffusion with ADC map seq uences. Images stored on PACS. LIMITATIONS: None. FINDINGS: ANATOMY: No developmental anomalies. Normal vascular flow voids. Pituitary fossa normal. CSF SPACES: Normal in size and contour. No hemorrhage. CEREBRUM: Diffusion-weighted images, T2 and FLAIR images are positive for a small acute nonhemorrhagi c infarct in the left posterior basal ganglia extending into the left deep periventricular white samina er posterior frontal region. Remainder of the study demonstrates mild spotty bifrontal and biparietal chronic small vessel ischemi c change. POSTERIOR FOSSA: No signal alteration. No hemorrhage. No edema, masses or mass effect. Internal chelsey tory canals, cerebello-pontine angles, mastoids normal. DIFFUSION IMAGING: Negative for acute or sub-acute infarction. ORBITS: No masses. Globes normal. PARANASAL SINUSES: No fluid levels. Mucosa normal. OTHER: No other significant finding. IMPRESSION: Positive for a small nonhemorrhagic acute infarct in the left posterior basal ganglia EVIDENCE OF ACUTE STROKE: Yes. Report called to the patient's nurse in ICU TECHNICAL DOCUMENTATION: JOB ID: [id number] [employer]- All Rights Reserved Reading location - IP/workstation name: [email or web address]
--- NOTE | 2018-09-04 17:01 | PDOC PROGRESS REPORT ---
Subjective Progress Note for:: 09/04/18 Subjective:: Patient was admitted to ICU overnight, status post TPA for acute CVA. Patient's awake, reports doing much better. He knows his name and that he is in the hospital. No cough or hemoptysis, no rectal bleeding, no hematuria. Denies headache, no chest pain or shortness of breath or palpitations. Reason For Visit: CVA Physical Exam Vital Signs: Temp Pulse Resp BP Pulse Ox 97.5 F 75 16 95/65 L 100 09/04/18 12:00 09/04/18 15:30 09/04/18 15:30 09/04/18 15:30 09/04/18 15:30 Intake & Output 09/03/18 09/04/18 09/05/18 06:59 06:59 06:59 Intake Total 1000 Output Total 400 300 Balance -400 700 Weight 77.6 kg 77.2 kg GENERAL: Well-developed, well-nourished male, no acute distress HEENT: Normocephalic/atraumatic, no facial droop NECK supple, no JVD CARDIOVASCULAR: RRR, normal S1-S2 LUNGS: CTA bilaterally ABDOMEN: Soft, NT, NL bowel sounds EXTREMITIES: No edema, clubbing, cyanosis NEUROLOGICAL: Alert, oriented to name, hospital. Speech is better unable to answer simple questions and follow simple commands. He has 3-4/5 strength right upper and lower extremity. Results Laboratory Results: 09/04/18 06:17 09/03/18 19:30 09/03/18 09/03/18 09/03/18 18:18 18:18 18:50 WBC 9.5 RBC 4.31 L Hgb 14.5 Hct 40.2 MCV 93 MCH 33.6 H MCHC 36.1 H RDW 13.8 Plt Count 266 Seg Neutrophils % 82.6 H Lymphocytes % 10.0 L Monocytes % 7.0 Eosinophils % 0.1 Basophils % 0.3 Absolute Neutrophils 7.9 Absolute Lymphocytes 1.0 Absolute Monocytes 0.7 Absolute Eosinophils 0.0 Absolute Basophils 0.0 Sodium Cancelled 130.6 L Potassium Cancelled 9.8 H* Chloride Cancelled 97 L Carbon Dioxide Cancelled 22 Anion Gap Cancelled 12 BUN Cancelled 31 H Creatinine Cancelled 1.13 Est GFR ( Amer) Cancelled > 60 Est GFR (Non-Af Amer) Cancelled > 60 Glucose Cancelled 126 H Calcium Cancelled 9.2 Total Bilirubin Cancelled 3.6 H AST Cancelled 105 H ALT Cancelled < 6 L Alkaline Phosphatase Cancelled 103 Total Protein Cancelled 10.2 H Albumin Cancelled 5.1 H Triglycerides Cholesterol LDL Cholesterol Direct VLDL Cholesterol HDL Cholesterol Urine Color Urine Appearance Urine pH Ur Specific [place] Urine Protein Urine Glucose (UA) Urine Ketones Urine Blood Urine Nitrite Ur Leukocyte Esterase Urine WBC (Auto) Urine RBC (Auto) 09/03/18 09/04/18 09/04/18 19:30 00:55 06:17 WBC 8.0 RBC 3.91 L Hgb 13.4 L Hct 37.2 L MCV 95 MCH 34.2 H MCHC 36.0 RDW 13.7 Plt Count 217 Seg Neutrophils % 70.4 Lymphocytes % 16.7 Monocytes % 12.1 Eosinophils % 0.5 Basophils % 0.3 Absolute Neutrophils 5.6 Absolute Lymphocytes 1.3 Absolute Monocytes 1.0 Absolute Eosinophils 0.0 Absolute Basophils 0.0 Sodium 132.6 L Potassium 5.0 D Chloride 97 L Carbon Dioxide 25 Anion Gap 11 BUN 30 H Creatinine 1.24 Est GFR ( Amer) > 60 Est GFR (Non-Af Amer) 55 L Glucose 124 H Calcium 9.4 Total Bilirubin 1.0 D AST 44 ALT 27 Alkaline Phosphatase 106 Total Protein 7.7 Albumin 3.7 Triglycerides Cholesterol LDL Cholesterol Direct VLDL Cholesterol HDL Cholesterol Urine Color YELLOW Urine Appearance CLOUDY Urine pH 7.0 Ur Specific [place] 1.034 Urine Protein 100 H Urine Glucose (UA) NEGATIVE Urine Ketones NEGATIVE Urine Blood MODERATE H Urine Nitrite NEGATIVE Ur Leukocyte Esterase LARGE H Urine WBC (Auto) >182 Urine RBC (Auto) 39 09/04/18 06:17 WBC RBC Hgb Hct MCV MCH MCHC RDW Plt Count Seg Neutrophils % Lymphocytes % Monocytes % Eosinophils % Basophils % Absolute Neutrophils Absolute Lymphocytes Absolute Monocytes Absolute Eosinophils Absolute Basophils Sodium Potassium Chloride Carbon Dioxide Anion Gap BUN Creatinine Est GFR ( Amer) Est GFR (Non-Af Amer) Glucose Calcium Total Bilirubin AST ALT Alkaline Phosphatase Total Protein Albumin Triglycerides 56 Cholesterol 122.61 LDL Cholesterol Direct 89 VLDL Cholesterol 11.0 HDL Cholesterol 31 L Urine Color Urine Appearance Urine pH Ur Specific [place] Urine Protein Urine Glucose (UA) Urine Ketones Urine Blood Urine Nitrite Ur Leukocyte Esterase Urine WBC (Auto) Urine RBC (Auto) 09/03/18 09/03/18 09/03/18 18:18 18:18 18:50 Creatine Kinase Cancelled 133 CK-MB (CK-2) Cancelled Troponin I Cancelled 09/03/18 18:50 Creatine Kinase CK-MB (CK-2) 1.46 Troponin I 0.078 Impressions: Chest X-Ray 09/03/18 17:44 IMPRESSION: NO ACUTE RADIOGRAPHIC FINDING IN THE CHEST. Head CT 09/03/18 17:44 IMPRESSION: MILD CHRONIC CHANGES OF ATROPHY AND MICROVASCULAR ISCHEMIA. NO ACUTE PROCESS. EVIDENCE OF ACUTE STROKE: NO. Head CTA 09/03/18 18:22 IMPRESSION: NO CTA EVIDENCE OF STENOSIS OR ANEURYSM OF THE [place] OR NECK. Neck CTA 09/03/18 18:22 IMPRESSION: NO CTA EVIDENCE OF STENOSIS OR ANEURYSM OF THE [place] OR NECK. Assessment and Plan - Diagnosis (1) Acute CVA (cerebrovascular accident) Is this a current diagnosis for this admission?: Yes (2) Benign prostatic hyperplasia Qualifiers: Lower urinary tract symptom presence: symptoms present Is this a current diagnosis for this admission?: Yes (3) Hypertension Qualifiers: Hypertension type: essential hypertension Qualified Code(s): I10 - Essential (primary) hypertension Is this a current diagnosis for this admission?: Yes (4) Iron deficiency anemia Qualifiers: Iron deficiency anemia type: inadequate dietary iron intake Qualified Code(s): D50.8 - Other iron deficiency anemias Is this a current diagnosis for this admission?: Yes - Plan Summary Plan Summary: Patient with improvement in his presenting symptoms. We will continue to monitor closely in the ICU. Status post TPA. No anticoagulation for DVT, needlesticks, or IV insertion or [place] in the next 24-48 hours. No aspirin at this time. Continue to monitor neuro status with neurochecks.
[2018-09-04 21:37] LABS: ABSOLUTE BASOPHILS # (AUTO) 0.1 10^3/uL (0.0-0.2); ABSOLUTE EOSINOPHILS # (AUTO) 0.1 10^3/uL (0.0-0.6); ABSOLUTE LYMPHOCYTES (AUTO) 1.5 10^3/uL (0.5-4.7); ABSOLUTE MONOCYTES (AUTO) 1.2 10^3/uL (0.1-1.4); ABSOLUTE NEUT (AUTO) 4.7 10^3/uL (1.7-8.2); BASOPHILS % (AUTO) 0.7 % (0-2); HEMATOCRIT 36.3 % (37.9-51.0); HEMOGLOBIN 13.3 g/dL (13.5-17.0); LYMPHOCYTES % (AUTO) 20.5 % (13-45); MEAN CORPUSCULAR HEMOGLOBIN 34.3 pg (27.0-33.4); MEAN CORPUSCULAR HGB CONC 36.7 g/dL (32.0-36.0); MEAN CORPUSCULAR VOLUME 93 fl (80-97); MONOCYTES % (AUTO) 15.6 % (3-13); PLATELET COUNT 219 10^3/uL (150-450); RED BLOOD COUNT 3.89 10^6/uL (4.35-5.55); RED CELL DISTRIBUTION WIDTH 13.8 % (11.5-14.0); SEGMENTED NEUTROPHILS % (AUTO) 62.2 % (42-78); TOTAL CELLS COUNTED % (AUTO) 100 %; WHITE BLOOD COUNT 7.6 10^3/uL (4.0-10.5)
[2018-09-05 05:26] LABS: ABSOLUTE EOSINOPHILS # (AUTO) 0.1 10^3/uL (0.0-0.6); ABSOLUTE LYMPHOCYTES (AUTO) 1.5 10^3/uL (0.5-4.7); ABSOLUTE MONOCYTES (AUTO) 0.7 10^3/uL (0.1-1.4); ABSOLUTE NEUT (AUTO) 5.2 10^3/uL (1.7-8.2); BASOPHILS % (AUTO) 0.5 % (0-2); EOSINOPHILS % (AUTO) 1.1 % (0-6); HEMATOCRIT 36.3 % (37.9-51.0); HEMOGLOBIN 13.1 g/dL (13.5-17.0); LYMPHOCYTES % (AUTO) 20.3 % (13-45); MEAN CORPUSCULAR HGB CONC 36.2 g/dL (32.0-36.0); MEAN CORPUSCULAR VOLUME 94 fl (80-97); MONOCYTES % (AUTO) 9.4 % (3-13); PLATELET COUNT 220 10^3/uL (150-450); RED BLOOD COUNT 3.87 10^6/uL (4.35-5.55); RED CELL DISTRIBUTION WIDTH 13.7 % (11.5-14.0); SEGMENTED NEUTROPHILS % (AUTO) 68.7 % (42-78); TOTAL CELLS COUNTED % (AUTO) 100 %; WHITE BLOOD COUNT 7.5 10^3/uL (4.0-10.5)
[2018-09-05] MEDS: HEPARIN SOD (PORCINE) 5,000 UNIT/ML 1 ML SYRINGE SUBCUT SCH ×3 (06:41→22:30)
--- NOTE | 2018-09-05 08:52 | PDOC PROGRESS REPORT ---
Subjective Progress Note for:: 09/05/18 Subjective:: 87-year-old male admitted with a new CVA initial CAT scan was negative he was given a TPA in the emergency room. MRI shows mild nonhemorrhagic acute infarct. No acute events of the last 24 hours. Patient alert awake following verbal commands. Able to eat a regular diet no swallowing problems. Right-sided weakness is improving. Patient is stable enough to go to [facility] today. Reason For Visit: CVA Physical Exam Vital Signs: Temp Pulse Resp BP Pulse Ox 97.5 F 71 13 90/66 L 100 09/05/18 08:13 09/05/18 08:13 09/05/18 08:13 09/05/18 08:13 09/05/18 08:13 Intake & Output 09/04/18 09/05/18 09/06/18 06:59 06:59 06:59 Intake Total 1000 Output Total 400 800 Balance -400 200 Weight 77.6 kg 78.8 kg General appearance: PRESENT: no acute distress Head exam: PRESENT: atraumatic Eye exam: PRESENT: PERRLA Mouth exam: PRESENT: moist, tongue midline Teeth exam: PRESENT: edentulous Neck exam: ABSENT: carotid bruit, JVD, lymphadenopathy, thyromegaly Respiratory exam: PRESENT: clear to auscultation francia. ABSENT: rales, rhonchi, wheezes Cardiovascular exam: PRESENT: RRR, systolic murmur. ABSENT: diastolic murmur, rubs GI/Abdominal exam: PRESENT: normal bowel sounds, soft. ABSENT: distended, guarding, mass, organolmegaly, rebound, tenderness Rectal exam: PRESENT: deferred Extremities exam: PRESENT: full ROM. ABSENT: calf tenderness, clubbing, pedal edema Neurological exam: PRESENT: alert, awake, oriented to person, other - Patient has no problems swallowing no problem with following verbal commands power on the right side upper extremities 4/5 right lower extremities 4/5. Still have a problem with fine motor activity. Psychiatric exam: PRESENT: appropriate affect, normal mood. ABSENT: homicidal ideation, suicidal ideation Results Laboratory Results: 09/05/18 03:50 09/03/18 19:30 09/04/18 09/05/18 21:27 03:50 WBC 7.6 7.5 RBC 3.89 L 3.87 L Hgb 13.3 L 13.1 L Hct 36.3 L 36.3 L MCV 93 94 MCH 34.3 H 34.0 H MCHC 36.7 H 36.2 H RDW 13.8 13.7 Plt Count 219 220 Seg Neutrophils % 62.2 68.7 Lymphocytes % 20.5 20.3 Monocytes % 15.6 H 9.4 Eosinophils % 1.0 1.1 Basophils % 0.7 0.5 Absolute Neutrophils 4.7 5.2 Absolute Lymphocytes 1.5 1.5 Absolute Monocytes 1.2 0.7 Absolute Eosinophils 0.1 0.1 Absolute Basophils 0.1 0.0 09/03/18 09/03/18 09/03/18 18:18 18:18 18:50 Creatine Kinase Cancelled 133 CK-MB (CK-2) Cancelled Troponin I Cancelled 09/03/18 18:50 Creatine Kinase CK-MB (CK-2) 1.46 Troponin I 0.078 Impressions: Chest X-Ray 09/03/18 17:44 IMPRESSION: NO ACUTE RADIOGRAPHIC FINDING IN THE CHEST. Head CT 09/03/18 17:44 IMPRESSION: MILD CHRONIC CHANGES OF ATROPHY AND MICROVASCULAR ISCHEMIA. NO ACUTE PROCESS. EVIDENCE OF ACUTE STROKE: NO. Head CTA 09/03/18 18:22 IMPRESSION: NO CTA EVIDENCE OF STENOSIS OR ANEURYSM OF THE [place] OR NECK. Neck CTA 09/03/18 18:22 IMPRESSION: NO CTA EVIDENCE OF STENOSIS OR ANEURYSM OF THE [place] OR NECK. Head MRI 09/04/18 00:00 IMPRESSION: Positive for a small nonhemorrhagic acute infarct in the left posterior basal ganglia EVIDENCE OF ACUTE STROKE: Yes. Report called to the patient's nurse in ICU Assessment and Plan - Diagnosis (1) Acute CVA (cerebrovascular accident) Is this a current diagnosis for this admission?: Yes Plan: Patient is admitted to the stroke protocol. He has been given TPA and will be closely monitored according to the post TPA protocol. 09/05/2018-patient came in with right-sided weakness TPA was given in the emergency room. Initial CT was negative CT head was negative MRI of the brain shows small nonhemorrhagic acute infarct. Patient does not have any problems swallowing power on the right side is 4/5. PT OT was on board. Probably he ne ed physical therapy and rehab placement. Patient is downgraded to [facility] today. (2) Hypertension Qualifiers: Hypertension type: essential hypertension Qualified Code(s): I10 - Essential (primary) hypertension Is this a current diagnosis for this admission?: Yes Plan: The patient's blood pressure be closely monitored and he will be treated for hypertension on as-needed basis with intravenous agents until such time as he is able to swallow oral medications safely. 09/05/2018-'s blood pressures actually running low this morning blood pressure is 90/60 he is on Lasix 40 mg twice a day and spironolactone 50 mg every 12 hours both of them are discontinued. Plan is to closely monitor his blood pressures on a regular basis. (3) Constipation Qualifiers: Constipation type: slow transit constipation Qualified Code(s): K59.01 - Slow transit constipation Is this a current diagnosis for this admission?: Yes Plan: Patient does not have any bowel movement yet he was started on water feeds yesterday. Hopefully is going to have a good bowel movement today. (4) Benign prostatic hyperplasia Qualifiers: Lower urinary tract symptom presence: symptoms present Is this a current diagnosis for this admission?: Yes Plan: Patient's urinary output will be monitored during his hospital course and any evidence of urinary retention or other urinary problems will be addressed immediately. 09/05/2018 patient has history of BPH urinary output today is 1 L. Plan is to closely watch urinary output during the hospital stay. - Time Time Spent with patient: 15-24 minutes Medications reviewed and adjusted accordingly: Yes Anticipated discharge: SNF
[2018-09-05] MEDS ORDERED: (PENDING PHARMACY ID) (Spironolactone [Aldactone] 50 MG) PO SCH (10:00)
[2018-09-05] MEDS ORDERED: FUROSEMIDE 40 MG TABLET PO SCH (10:00)
[2018-09-05] MEDS ORDERED: SPIRONOLACTONE 25 MG TABLET PO SCH (10:00)
[2018-09-05] MEDS: LEVOFLOXACIN 500 MG/D5W RTU 500 MG/100 ML RTUPB IV SCH (10:37)
[2018-09-05] MEDS: ASCORBIC ACID 500 MG TABLET PO SCH (10:38)
[2018-09-05] MEDS: FAMOTIDINE 20 MG TABLET PO SCH ×2 (10:38→22:31)
[2018-09-05] MEDS: CALCIUM CARBONATE 500 MG TAB.CHEW PO SCH ×3 (10:38→17:52)
[2018-09-05] MEDS: IPRATROPIUM/ALBUTEROL 0.5-2.5 MG/3 ML AMPUL NEB SCH ×2 (14:43→20:29)
[2018-09-05] MEDS ORDERED: LATANOPROST 0.005% OPH SOLN 2.5 ML OU SCH (22:00)
[2018-09-06] MEDS: IPRATROPIUM/ALBUTEROL 0.5-2.5 MG/3 ML AMPUL NEB SCH ×2 (02:16→08:23)
[2018-09-06 05:54] LABS: ABSOLUTE EOSINOPHILS # (AUTO) 0.1 10^3/uL (0.0-0.6); ABSOLUTE LYMPHOCYTES (AUTO) 1.6 10^3/uL (0.5-4.7); ABSOLUTE MONOCYTES (AUTO) 0.8 10^3/uL (0.1-1.4); ABSOLUTE NEUT (AUTO) 5.2 10^3/uL (1.7-8.2); BASOPHILS % (AUTO) 0.4 % (0-2); EOSINOPHILS % (AUTO) 1.1 % (0-6); HEMATOCRIT 35.3 % (37.9-51.0); HEMOGLOBIN 12.8 g/dL (13.5-17.0); LYMPHOCYTES % (AUTO) 20.3 % (13-45); MEAN CORPUSCULAR HEMOGLOBIN 34.3 pg (27.0-33.4); MEAN CORPUSCULAR HGB CONC 36.2 g/dL (32.0-36.0); MEAN CORPUSCULAR VOLUME 95 fl (80-97); MONOCYTES % (AUTO) 10.7 % (3-13); PLATELET COUNT 204 10^3/uL (150-450); RED BLOOD COUNT 3.72 10^6/uL (4.35-5.55); RED CELL DISTRIBUTION WIDTH 13.9 % (11.5-14.0); SEGMENTED NEUTROPHILS % (AUTO) 67.5 % (42-78); TOTAL CELLS COUNTED % (AUTO) 100 %; WHITE BLOOD COUNT 7.7 10^3/uL (4.0-10.5)
[2018-09-06 06:17] LABS: ALANINE AMINOTRANSFERASE 22 U/L (21-72); ALBUMIN 3.3 g/dL (3.5-5.0); ALKALINE PHOSPHATASE 84 U/L (38-126); ANION GAP 10 (5-19); ASPARTATE AMINO TRANSFERASE 35 U/L (17-59); BILIRUBIN,DIRECT 0.5 mg/dL (0.0-0.4); BILIRUBIN,TOTAL 0.9 mg/dL (0.2-1.3); BLOOD UREA NITROGEN 20 mg/dL (7-20); CALCIUM 9.1 mg/dL (8.4-10.2); CARBON DIOXIDE 22 mmol/L (22-30); CHLORIDE 105 mmol/L (98-107); GLUCOSE 88 mg/dL (75-110); SODIUM 136.6 mmol/L (137-145); TOTAL PROTEIN 6.7 g/dL (6.3-8.2)
[2018-09-06] MEDS: HEPARIN SOD (PORCINE) 5,000 UNIT/ML 1 ML SYRINGE SUBCUT SCH (09:05)
[2018-09-06] MEDS: CALCIUM CARBONATE 500 MG TAB.CHEW PO SCH (09:35)
[2018-09-06] MEDS: FAMOTIDINE 20 MG TABLET PO SCH (09:36)
[2018-09-06] MEDS: ASCORBIC ACID 500 MG TABLET PO SCH (09:36)
[2018-09-06] MEDS: LEVOFLOXACIN 500 MG/D5W RTU 500 MG/100 ML RTUPB IV SCH (09:37)
--- NOTE | 2018-09-06 09:48 | PDOC TRANSFER SUMMARY ---
General - Admit/Disc Date/PCP Admission Date/Primary Care Provider: 09/03/18 21:03 KRISTA OLIVAREZ MD Discharge Date: 09/06/18 - Discharge Diagnosis (1) Acute CVA (cerebrovascular accident) Is this a current diagnosis for this admission?: Yes Summary: Patient is admitted to the stroke protocol. He has been given TPA and will be closely monitored according to the post TPA protocol. 09/05/2018-patient came in with right-sided weakness TPA was given in the emergency room. Initial CT was negative CT head was negative MRI of the brain shows small nonhemorrhagic acute infarct. Patient does not have any problems swallowing power on the right side is 4/5. PT OT was on board. Probably he need physical therapy and rehab placement. Patient is downgraded to [facility] today. 09/06/2018-patient was admitted with right-sided weakness initial CT head was negative patient was given TPA as per the family request MRI of the brain shows small nonhemorrhagic ischemic stroke his right-sided weakness is improving he is able to swallow no problem with urination no problem with bowel movements he is following the commands very well I think is stable enough to go back to the residential today stroke protocol was implemented during the hospital stay. (2) Hypertension Is this a current diagnosis for this admission?: Yes Summary: The patient's blood pressure be closely monitored and he will be treated for hypertension on as-needed basis with intravenous agents until such time as he is able to swallow oral medications safely. 09/05/2018-'s blood pressures actually running low this morning blood pressure is 90/60 he is on Lasix 40 mg twice a day and spironolactone 50 mg every 12 hours both of them are discontinued. Plan is to closely monitor his blood pressures on a regular basis. 09/06/2018-patient blood pressure today is at 108/60 he is on furosemide and spironolactone at residential both of the medications are discontinued for the moment. pt is going back to the residential today. Patient is asymptomatic. (3) Constipation Is this a current diagnosis for this admission?: Yes (4) Benign prostatic hyperplasia Is this a current diagnosis for this admission?: Yes - Additional Information Resuscitation Status: Full Code Discharge Diet: Cardiac Discharge Activity: Activity As Tolerated Prescriptions: Atorvastatin Calcium [Lipitor 10 mg Tablet] 10 mg PO QHS #30 tablet Home Medications: Ascorbic Acid [Vitamin C 500 mg Tablet] 500 mg PO DAILY 09/04/18 Calcium Carbonate [Tums Chewable 500 mg Tab.chew] 1,000 mg PO .AFTER MEALS 09/04/18 Ipratropium/Albuterol Sulfate [Duoneb 3 ml Ampul] 3 ml NEB Q6 09/04/18 Latanoprost [Xalatan 0.005% Oph Soln 2.5 ml] 1 drop OU QHS 09/04/18 Acetaminophen [Tylenol 650 mg Supp] 650 mg MO Q4HP PRN supp.rect 09/06/18 Atorvastatin Calcium [Lipitor 10 mg Tablet] 10 mg PO QHS #30 tablet 09/06/18 Famotidine [Pepcid 20 mg Tablet] 20 mg PO Q12 tablet 09/06/18 History of Present Illness Admission Date/PCP: 09/03/18 21:03 KRISTA OLIVAREZ MD History of Present Illness: 87 year old male who was found on the floor at the residential at approximately 5:30 PM today, he was noted immediately to have a right-sided flaccid paralysis and expressive and receptive aphasia. The patient had been at his normal baseline at 5 PM when he was checked by the nursing staff on routine assessment. Patient, due to his acute aphasia is unable to communicate any input into his medical record. Patient has no prior history of heart attack or CVA but does have a known history of chronic atrial fibrillation (not currently on anticoagulants). prison staff records indicate that the patient is normally alert, oriented to person and place, appropriately verbally responsive as well as able to move both arms and legs and ambulate without difficulty. In the emergency room the patient was found to have a flaccid paralysis of his right side and complete receptive and expressive aphasia. CT scan of the head showed no evidence of infarction and CTAs of the head and neck showed no large vessel vascular occlusion. Patient was given TPA in the emergency room on the approval of his nephew who is his medical power of workers compensation attorney. Patient has had no change since getting TPA and is being admitted to the [facility] for stroke care. Hospital Course Hospital Course: 7-year-old male resident of [facility] admitted for right- sided weakness CT head was negative, CTA of the head and neck are negative. Patient was given TPA in the ER. MRI was done found to have a small nonhemorrhagic ischemic stroke. Patient is showing significant recovery. Able to swallow. Able to eat without any discomfort. Right-sided weakness is improved. Power in the right upper extremity is 4 /5 left right lower extremity is 4 / 5. following verbal commands very well. Physical Exam Vital Signs: Temp Pulse Resp BP Pulse Ox 97.6 F 69 15 94/65 L 94 09/06/18 07:00 09/06/18 07:00 09/06/18 07:00 09/06/18 07:00 09/06/18 07:00 Intake & Output 09/05/18 09/06/18 09/07/18 06:59 06:59 06:59 Intake Total 1000 1550 Output Total 800 700 Balance 200 850 Weight 78.8 kg 79.3 kg Results Laboratory Results: 09/06/18 05:15 09/06/18 05:15 09/06/18 09/06/18 05:15 05:15 WBC 7.7 RBC 3.72 L Hgb 12.8 L Hct 35.3 L MCV 95 MCH 34.3 H MCHC 36.2 H RDW 13.9 Plt Count 204 Seg Neutrophils % 67.5 Lymphocytes % 20.3 Monocytes % 10.7 Eosinophils % 1.1 Basophils % 0.4 Absolute Neutrophils 5.2 Absolute Lymphocytes 1.6 Absolute Monocytes 0.8 Absolute Eosinophils 0.1 Absolute Basophils 0.0 Sodium 136.6 L Potassium 5.0 Chloride 105 Carbon Dioxide 22 Anion Gap 10 BUN 20 Creatinine 0.97 Est GFR ( Amer) > 60 Est GFR (Non-Af Amer) > 60 Glucose 88 Calcium 9.1 Magnesium 2.2 Total Bilirubin 0.9 AST 35 ALT 22 Alkaline Phosphatase 84 Total Protein 6.7 Albumin 3.3 L 09/04/18 15:00 Clean Catch Midstream Urine Culture - Final Escherichia Coli 09/03/18 09/03/18 09/03/18 18:18 18:18 18:50 Creatine Kinase Cancelled 133 CK-MB (CK-2) Cancelled Troponin I Cancelled 09/03/18 18:50 Creatine Kinase CK-MB (CK-2) 1.46 Troponin I 0.078 Impressions: Chest X-Ray 09/03/18 17:44 IMPRESSION: NO ACUTE RADIOGRAPHIC FINDING IN THE CHEST. Head CT 09/03/18 17:44 IMPRESSION: MILD CHRONIC CHANGES OF ATROPHY AND MICROVASCULAR ISCHEMIA. NO ACUTE PROCESS. EVIDENCE OF ACUTE STROKE: NO. Head CTA 09/03/18 18:22 IMPRESSION: NO CTA EVIDENCE OF STENOSIS OR ANEURYSM OF THE LUMMI OF [place] OR NECK. Neck CTA 09/03/18 18:22 IMPRESSION: NO CTA EVIDENCE OF STENOSIS OR ANEURYSM OF THE LUMMI OF [place] OR NECK. Head MRI 09/04/18 00:00 IMPRESSION: Positive for a small nonhemorrhagic acute infarct in the left posterior basal ganglia EVIDENCE OF ACUTE STROKE: Yes. Report called to the patient's nurse in ICU Transfer Plan - Disposition Transfer Plan: Patient is going back to [facility] versus residential today. - Time Spent with Patient Time spent with patient: Greater than 30 Minutes Qualifiers - * PATIENT BEING DISCHARGED WITH ANY OF THE FOLLOWING DIAGNOSIS: Stroke VTE patient discharged on overlapping Therapy?: No Reason(s) for not prescribing Overlap Therapy:: Not indicated Stroke Pt being discharged on Anti-thrombolytic therapy?: No Reason(s) for not prescribing Anti-thrombolytic therapy:: Not indicated Stroke Pt being discharged on Anti-coagulation therapy?: Yes Reason(s) for not prescribing Anti-coagulation therapy:: Not indicated Stroke Pt being discharged on Statins?: Yes
[2018-09-06 10:47] VITALS: BP 117/70
== END 2018-09-06 10:30 | DRG 65 ==
LOC: ER 17:42 → EH 21:03 → ICU 09-04 08:30
PROVIDERS: ADMIT Emergency Medicine; ATTEND Emergency Medicine
DX: I63.89 Other cerebral infarction (principal); G81.01 Flaccid hemiplegia affecting right dominant side; I48.91 Unspecified atrial fibrillation; I25.10 Atherosclerotic heart disease of native coronary artery without angina pectoris; E78.5 Hyperlipidemia, unspecified; I10 Essential (primary) hypertension; R47.01 Aphasia; J44.9 Chronic obstructive pulmonary disease, unspecified; D50.9 Iron deficiency anemia, unspecified; R29.722 NIHSS score 22; N40.0 Benign prostatic hyperplasia without lower urinary tract symptoms; F03.90 Unspecified dementia, unspecified severity, without behavioral disturbance, psychotic disturbance, mood disturbance, and anxiety; K59.00 Constipation, unspecified
CPT/HCPCS: 36415; 70450; 70496; 70498; 70551; 71045; 80053; 80061; 81001; 82550; 82553; 82962; 83735; 84484; 85025; 85610; 85730; 87086; 87088; 87186; 93005; 93010; 94640; J1956; J2997; J3490; J7030; J7620; S0028

== ENCOUNTER 2019-08-28 12:37 | Inpatient (IN) | payer MEDICARE, MEDICAID ==
[2019-08-28 13:17] LABS: HEMATOCRIT 40.3 % (37.9-51.0); HEMOGLOBIN 14.3 g/dL (13.5-17.0); MEAN CORPUSCULAR HEMOGLOBIN 32.9 pg (27.0-33.4); MEAN CORPUSCULAR HGB CONC 35.6 g/dL (32.0-36.0); MEAN CORPUSCULAR VOLUME 93 fl (80-97); PLATELET COUNT 245 10^3/uL (150-450); RED BLOOD COUNT 4.35 10^6/uL (4.35-5.55); RED CELL DISTRIBUTION WIDTH 15.6 % (11.5-14.0); WHITE BLOOD COUNT 16.2 10^3/uL (4.0-10.5)
--- NOTE | 2019-08-28 13:17 | ER Document Report ---
ED General - General Chief Complaint: Altered Mental Status Stated Complaint: ALTERED MENTAL STATUS Time Seen by Provider: 08/28/19 12:59 Mode of Arrival: Medic Information source: Patient, Emergency Med Personnel TRAVEL OUTSIDE OF THE [place] IN LAST 30 DAYS: No - HPI Onset: Other - unknown onset Onset/Duration: Gradual Quality of pain: Achy Severity: Moderate Pain Level: 3 Exacerbated by: Denies Relieved by: Denies Similar symptoms previously: No Recently seen / treated by doctor: No Notes: 88 year old male with a history of AFib, CHF, CAD, HTN, HLD, COPD, BPH, CKD sent to the ER from his shelter facility for altered mental status and fevers. The patient is not a reliable historian at the moment due to his altered mental status. The patient's right leg is erythematous and warm to palpation on ER arrival but this was not reported to EMS or to us by the shelter staff. - Related Data Allergies/Adverse Reactions: adhesive tape Adverse Reaction (Intermediate, Verified 08/16/16 13:13) SKIN IRRITATION Past Medical History - General Information source: Patient, Emergency Med Personnel - Social History Smoking Status: Unknown if Ever Smoked Frequency of alcohol use: None Drug Abuse: None Lives with: Long Term Family History: None, Other - Unobtainable Patient has suicidal ideation: No Patient has homicidal ideation: No - Past Medical History Cardiac Medical History: Reports: Hx Atrial Fibrillation, Hx Congestive Heart Failure, Hx Coronary Artery Disease, Hx Hypercholesterolemia, Hx Hypertension Denies: Hx DVT, Hx Heart Attack, Hx Pulmonary Embolism Pulmonary Medical History: Reports: Hx COPD Denies: Hx Asthma, Hx Bronchitis, Hx Pneumonia, Hx Tuberculosis Neurological Medical History: Denies: Hx Seizures, Hx Parkinson's Disease Endocrine Medical History: Denies: Hx Diabetes Mellitus Type 1, Hx Diabetes Mellitus Type 2, Hx Hyperthyroidism, Hx Hypothyroidism Renal/ Medical History: Reports: Hx Benign Prostatic Hyperplasia, Hx Kidney Stones. Denies: Hx End Stage Renal Disease, Hx Peritoneal Dialysis GI Medical History: Denies: Hx Cirrhosis, Hx Crohn's Disease, Hx Gastroesophageal Reflux Disease, Hx Hepatitis, Hx Ulcer, Hx Ulcerative Colitis Musculoskeletal Medical History: Denies Hx Arthritis, Denies Hx Gout, Denies Hx Multiple Sclerosis Skin Medical History: Denies Hx Eczema, Denies Hx Psoriasis Psychiatric Medical History: Reports: Hx Dementia Denies: Hx Bipolar Disorder, Hx Depression, Hx Schizophrenia Infectious Medical History: Denies: Hx Hepatitis Past Surgical History: Reports: Other - Prostate surgery - Immunizations Hx Diphtheria, Pertussis, Tetanus Vaccination: No Review of Systems - Review of Systems Constitutional: Fever, Weakness EENT: No symptoms reported Cardiovascular: No symptoms reported Respiratory: No symptoms reported Gastrointestinal: No symptoms reported Genitourinary: No symptoms reported Male Genitourinary: No symptoms reported Musculoskeletal: No symptoms reported Skin: Other - right leg is warm and red from thigh down Hematologic/Lymphatic: No symptoms reported Neurological/Psychological: Confusion -: Yes All other systems reviewed and negative Physical Exam - Vital signs Vitals: Resp 19 08/28/19 12:53 - Notes Notes: GENERAL: Chronically ill-appearing, well-nourished and in no acute distress. HEAD: Atraumatic, normocephalic. EYES: Pupils equal round and reactive to light, extraocular movements intact, sclera anicteric, conjunctiva are normal. ENT: External ears normal. Nares patent, oropharynx clear without exudates. Dry mucous membranes. NECK: Normal range of motion, supple without lymphadenopathy or JVD. LUNGS: Breath sounds clear to auscultation bilaterally and equal. No wheezes rales or rhonchi. HEART: Regular rate and rhythm without murmurs, rubs or gallops. ABDOMEN: Soft, nontender, normoactive bowel sounds. No guarding, no rebound. No masses appreciated. EXTREMITIES: Normal range of motion, no pitting or edema. No clubbing or cyanosis. NEUROLOGICAL: Cranial nerves II through XII grossly intact. Normal speech, normal gait. PSYCH: Normal mood, normal affect. SKIN: Right leg is erythematous and very warm to palpation from right thigh down to right knee in blotchy pattern. Patient has some chronic wounds on his both lo wer legs. Rest of skin is warm, dry, normal turgor, no rashes or lesions noted. Course - Re-evaluation Re-evalutation: 08/28/19 15:09 The patient seems to have a right leg cellulitis and he meets sepsis criteria with an elevated WBC count and elevated lactic acid. That said, the patient also has CHF and an elevated BNP so his fluid status is likely going to be difficult to manage. The patient was treated in the ER with IV fluids and IV Clindamycin. Patient admitted to a [facility] for further treatment and care. Chest Xray and h ead CT showed no acute process. - Vital Signs Vital signs: Temp Pulse Resp BP Pulse Ox 99.5 F 19 98/54 L 100 08/28/19 14:00 08/28/19 14:04 08/28/19 14:04 08/28/19 14:03 - Laboratory Result Diagrams: 08/28/19 13:00 08/28/19 13:00 Laboratory results interpreted by me: 08/28/19 08/28/19 08/28/19 13:00 13:00 13:00 WBC 16.2 H RDW 15.6 H Seg Neuts % (Manual) 94 H Lymphocytes % (Manual) 2 L Monocytes % (Manual) 0 L Abs Neuts (Manual) 15.7 H Abs Monocytes (Manual) 0.0 L PT 17.3 H VBG pH Sodium 135.1 L Potassium 3.2 L Chloride 94 L BUN 29 H Est GFR (MDRD) Non-Af 56 L Lactic Acid Total Bilirubin 2.9 H Direct Bilirubin 0.9 H AST 64 H Alkaline Phosphatase 202 H NT-Pro-B Natriuret Pep 08/28/19 08/28/19 08/28/19 13:00 13:00 13:00 WBC RDW Seg Neuts % (Manual) Lymphocytes % (Manual) Monocytes % (Manual) Abs Neuts (Manual) Abs Monocytes (Manual) PT VBG pH 7.43 H Sodium Potassium Chloride BUN Est GFR (MDRD) Non-Af Lactic Acid 4.1 H Total Bilirubin Direct Bilirubin AST Alkaline Phosphatase NT-Pro-B Natriuret Pep 00848 H - Diagnostic Test Radiology reviewed: Image reviewed, Reports reviewed - EKG Interpretation by Ma EKG shows normal: [place], QRS Complexes Rate: Normal Rhythm: A.Fib When compared to previous EKG there are: No significant change Additional EKG results interpreted by me: 08/28/19 13:14 T wave inversions in V2, V3, V4, V5 Discharge - Discharge Clinical Impression: Cellulitis of leg, right, Acidosis Altered mental state Qualifiers: Altered mental status type: unspecified Qualified Code(s): R41.82 - Altered mental status, unspecified Condition: Fair Disposition: ADMITTED INPATIENT Admitting Provider: Jp (Hospitalist) Unit Admitted: Medical Floor
[2019-08-28 13:19] LABS: VENOUS BLOOD BASE EXCESS 4.9 mmol/L; VENOUS BLOOD HCO3 30.1 mmol/L (20-32); VENOUS BLOOD PCO2 46.5 mmHg (35-63); VENOUS BLOOD PH 7.43 (7.30-7.42)
[2019-08-28 13:22] LABS: PROTHROMBIN TIME 17.3 SEC (11.4-15.4)
[2019-08-28 13:45] LABS: ABSOLUTE LYMPHOCYTES# (MANUAL) 0.5 10^3/uL (0.5-4.7); BAND NEUTROPHILS % (MANUAL) 3 % (3-5); BASOPHILS % (MANUAL) 0 % (0-2); EOSINOPHILS % (MANUAL) 0 % (0-6); LYMPHOCYTES % (MANUAL) 2 % (13-45); MONOCYTES % (MANUAL) 0 % (3-13); SEGMENTED NEUTROPHILS % (MAN) 94 % (42-78); TOTAL CELLS COUNTED 100
[2019-08-28 13:46] LABS: ANISOCYTOSIS SLIGHT; PLATELET COMMENT ADEQUATE; POIKILOCYTOSIS SLIGHT; TARGET CELLS SLIGHT
[2019-08-28 13:49] LABS: ALBUMIN 3.5 g/dL (3.5-5.0); ALKALINE PHOSPHATASE 202 U/L (38-126); ANION GAP 12 (5-19); ASPARTATE AMINO TRANSFERASE 64 U/L (17-59); BILIRUBIN,DIRECT 0.9 mg/dL (0.0-0.4); BILIRUBIN,TOTAL 2.9 mg/dL (0.2-1.3); BLOOD UREA NITROGEN 29 mg/dL (7-20); CALCIUM 8.8 mg/dL (8.4-10.2); CARBON DIOXIDE 29 mmol/L (22-30); CHLORIDE 94 mmol/L (98-107); GLUCOSE 97 mg/dL (75-110); POTASSIUM 3.2 mmol/L (3.6-5.0); TOTAL PROTEIN 7.3 g/dL (6.3-8.2)
[2019-08-28] MEDS ORDERED: NORMAL SALINE 1000 ML 1,000 ML IV ONE (13:51)
--- NOTE | 2019-08-28 13:56 | RADIOLOGY REPORT (SQ) ---
EXAM DESCRIPTION: CT HEAD WITHOUT IMAGES COMPLETED DATE/TIME: 08/28/2019 1:48 pm REASON FOR STUDY: altered mental status COMPARISON: 09/03/2018 TECHNIQUE: Axial images acquired through the brain without intravenous contrast. Images reviewed wi th bone, brain and subdural windows. Additional sagittal and coronal reconstructions were generated. Images stored on PACS. All CT scanners at this facility use dose modulation, iterative reconstruction, and/or weight based d osing when appropriate to reduce radiation dose to as low as reasonably achievable (ALARA). [facility]: Dose Right [facility]: CareDose [facility]: Dose Right [facility]: Teradose 4D [facility]: [employer] RADIATION DOSE: CT Rad equipment meets quality standard of care and radiation dose reduction techniq ues were employed. CTDIvol: 53.2 mGy. DLP: 1150 mGy-cm. mGy. LIMITATIONS: None. FINDINGS: VENTRICLES: Prominent. CEREBRUM: No masses. No hemorrhage. No midline shift. Areas of low density in the white matter mos t likely due to chronic micro-vascular ischemic change. No evidence for acute infarction. CEREBELLUM: No masses. No hemorrhage. No alteration of density. No evidence for acute infarction. EXTRAAXIAL SPACES: Mild age-related involutional change. No fluid collections. No masses. ORBITS AND GLOBE: No intra- or extraconal masses. Normal contour of globe without masses. CALVARIUM: No fracture. PARANASAL SINUSES: No fluid or mucosal thickening. SOFT TISSUES: No mass or hematoma. OTHER: No other significant finding. IMPRESSION: MILD CHRONIC CHANGES OF ATROPHY AND MICROVASCULAR ISCHEMIA. NO ACUTE PROCESS. EVIDENCE OF ACUTE STROKE: NO. TECHNICAL DOCUMENTATION: JOB ID: [id number] Quality ID # [id number]: Final reports with documentation of one or more dose reduction techniques (e.g., Au tomated exposure control, adjustment of the mA and/or kV according to patient size, use of iterative reconstruction technique) 2010 [employer]- All Rights Reserved Reading location - IP/workstation name: [email or web address]
--- NOTE | 2019-08-28 14:00 | RADIOLOGY REPORT (SQ) ---
EXAM DESCRIPTION: CHEST SINGLE VIEW IMAGES COMPLETED DATE/TIME: 08/28/2019 1:50 pm REASON FOR STUDY: eval for chest pain and SOB. patient had fevers COMPARISON: 09/03/2018 EXAM PARAMETERS: NUMBER OF VIEWS: One view. TECHNIQUE: Single frontal radiographic view of the chest acquired. RADIATION DOSE: NA LIMITATIONS: None. FINDINGS: LUNGS AND PLEURA: Lung beverly are hyperexpanded. Minimal right basilar atelectasis. No c onsolidation or effusions. No ground-glass opacities. MEDIASTINUM AND HILAR STRUCTURES: No masses. Contour normal. HEART AND VASCULAR STRUCTURES: The heart remains enlarged. No failure. BONES: No acute findings. HARDWARE: None in the chest. OTHER: No other significant finding. IMPRESSION: COPD with minimal right basilar atelectasis. No pneumonia. TECHNICAL DOCUMENTATION: JOB ID: [id number] 2010 [employer]- All Rights Reserved Reading location - IP/workstation name: [email or web address]
[2019-08-28] MEDS ORDERED: CLINDAMYCIN 900 MG/D5W RTU 900 MG/50 ML RTUPB IV ONE (14:53)
[2019-08-28] MEDS ORDERED: CLINDAMYCIN 600 MG/D5W RTU 600 MG/50 ML RTUPB IV ONE (14:54)
[2019-08-28] MEDS ORDERED: NORMAL SALINE 500 ML IV ONE (16:30)
[2019-08-28] MEDS ORDERED: NITROGLYCERIN 0.4 MG/TAB 25 TAB/BOTTLE SL PRN (16:45)
[2019-08-28] MEDS ORDERED: MAGNESIUM HYDROXIDE SUSP 30 ML UDCUP PO PRN (16:45)
[2019-08-28] MEDS ORDERED: POTASSI CL 20 MEQ/50 ML RIDER 20 MEQ/50 ML RTUPB IV ONE (16:48)
[2019-08-28] MEDS ORDERED: ACETAMINOPHEN 325 MG TABLET PO PRN (16:49)
[2019-08-28] MEDS ORDERED: PROMETHAZINE HCL INJ 25 MG/1 ML VIAL IV PRN (16:49)
[2019-08-28] MEDS ORDERED: ACETAMINOPHEN 650 MG SUPP.RECT PR PRN (16:49)
[2019-08-28] MEDS ORDERED: MIDODRINE HCL 5 MG TABLET PO PRN (16:59)
--- NOTE | 2019-08-28 17:07 | PDOC H&P ---
History of Present Illness Admission Date/PCP: 08/28/19 14:57 DUC SIERRA MD Patient complains of: Sent from [facility] for red painful right thigh History of Present Illness: YAMILE EDMOND is a 88 year old male who currently resides at [facility]. He has a past medical history of hypertension, ischemic stroke (2019) prostate cancer and congestive heart failure despite a normal ejection fraction by echocardiogram 3 years ago. Due to altered mental status the patient is unable to provide any history. Evidently the patient was transferred to the emergency department from [facility] for erythema and pain in the right thigh. He does have some ulcers on his right leg and left foot and with an elevated white blood cell count, decreased blood pressure, elevated total bilirubin and clear evidence of infection sepsis makes the most sense. He will be placed on IV antibiotics. We will need to be mindful of his heart failure with regard to fluid administration. I was able to obtain additional information from his nephew Parish ([phone]). Past Medical History Cardiac Medical History: Reports: Atrial Fibrillation, Congestive Heart Failure, Coronary Artery Disease, Hyperlipidema, Hypertension Denies: DVT, Myocardial Infarction, Pulmonary Embolism Pulmonary Medical History: Reports: Chronic Obstructive Pulmonary Disease (COPD) Denies: Asthma, Bronchitis, Pneumonia, Tuberculosis Neurological Medical History: Denies: Seizures Endocrine Medical History: Denies: Diabetes Mellitus Type 1, Diabetes Mellitus Type 2, Hyperthyroidism, Hypothyroidism Renal/ Medical History: Denies: End Stage Renal Disease Malignancy Medical History: Reports: Other - Prostate GI Medical History: Denies: Cirrhosis, Crohn's Disease, Gastroesophageal Reflux Disease, Hepatitis, Ulcerative Colitis Musculoskeltal Medical History: Denies: Arthritis, Gout Skin Medical History: Denies: Eczema, Psoriasis Psychiatric Medical History: Reports: Dementia Denies: Bipolar Disorder, Depression Hematology: Reports: Anemia Denies: Bleeding Tendencies Past Surgical History Past Surgical History: Reports: Other - Prostate surgery Social History Information Source: Relative, [facility] Records Lives with: [facility] Smoking Status: Unknown if Ever Smoked Electronic Cigarette use?: No Frequency of Alcohol Use: None Hx Recreational Drug Use: No Drugs: None Hx Prescription Drug Abuse: No - Advance Directive Resuscitation Status: Full Code Surrogate healthcare decision maker:: Per his nephew Family History Family History: None, Other - Unobtainable. Patient adopted Parental Family History Reviewed: No - Patient adopted Children Family History Reviewed: NA Sibling(s) Family History Reviewed.: NA Medication/Allergy Home Medications: Ascorbic Acid [Vitamin C 500 mg Tablet] 500 mg PO DAILY 09/04/18 Calcium Carbonate [Tums Chewable 500 mg Tab.chew] 1,000 mg PO .AFTER MEALS 09/04/18 Latanoprost [Xalatan 0.005% Oph Soln 2.5 ml] 1 drop OU QHS 09/04/18 Atorvastatin Calcium [Lipitor 10 mg Tablet] 10 mg PO QHS #30 tablet 09/06/18 Famotidine [Pepcid 20 mg Tablet] 20 mg PO Q12 tablet 09/06/18 Acetaminophen [Tylenol 325 mg Tablet] 650 mg PO Q4HP PRN 08/28/19 Aspirin [Aspirin 81 mg Chewable Tablet] 81 mg PO DAILY 08/28/19 Furosemide [Lasix 20 mg Tablet] 20 mg PO DAILY 08/28/19 Magnesium Hydroxide [Milk of Magnesia 30 ml Udcup] 30 ml PO PRN PRN 08/28/19 Metolazone [Zaroxolyn 2.5 mg Tablet] 2.5 mg PO MOWEFR@1100 08/28/19 Nitroglycerin 0.4 mg SL Q5MP PRN MDD 1.2 MG 08/28/19 Potassium Chloride [Klor-Con M20] 60 meq PO BID 08/28/19 Spironolactone [Aldactone 25 mg Tablet] 25 mg PO DAILY 08/28/19 Allergies/Adverse Reactions: adhesive tape Adverse Reaction (Intermediate, Verified 08/16/16 13:13) SKIN IRRITATION Review of Systems ROS unobtainable: Due to mental status Physical Exam Vital Signs: Temp Pulse Resp BP Pulse Ox 99.5 F 19 98/54 L 100 08/28/19 14:00 08/28/19 14:04 08/28/19 14:04 08/28/19 14:03 Intake & Output 08/27/19 08/28/19 08/29/19 06:59 06:59 06:59 Intake Total 1000 Balance 1000 Weight 53.8 kg General appearance: PRESENT: mild distress, thin Head exam: PRESENT: atraumatic, normocephalic Eye exam: PRESENT: other - Patient resisted passive opening of his eyes Mouth exam: PRESENT: dry mucosa Teeth exam: PRESENT: edentulous Respiratory exam: PRESENT: clear to auscultation francia, symmetrical, unlabored. ABSENT: rales, rhonchi, tachypnea, wheezes Cardiovascular exam: PRESENT: RRR, +S1, +S2, systolic murmur - 2/6 GI/Abdominal exam: PRESENT: diminished bowel sounds, soft. ABSENT: distended, guarding, tenderness Rectal exam: PRESENT: deferred Gentrourinary exam: ABSENT: indwelling catheter Extremities exam: PRESENT: other - Unna boots were in place. ABSENT: pedal edema Musculoskeletal exam: PRESENT: other - Decreased muscle mass Neurological exam: PRESENT: awake, other - Patient did not verbally interact during this encounter. He did try to answer questions by shaking his head yes and no.. ABSENT: alert Psychiatric exam: PRESENT: flat affect, other - Affect suggests discomfort. ABSENT: agitated, anxious Focused psych exam: PRESENT: other - Unable to assess Skin exam: PRESENT: dry, warm, other - ulcers right leg and left foot. Erythema on the right thigh anterior laterally. The area is tender and warmer than the surrounding skin. Results Laboratory Results: 08/28/19 13:00 08/28/19 13:00 08/28/19 08/28/19 08/28/19 13:00 13:00 13:00 WBC 16.2 H RBC 4.35 Hgb 14.3 Hct 40.3 MCV 93 MCH 32.9 MCHC 35.6 RDW 15.6 H Plt Count 245 Seg Neutrophils % Not Reportable VBG pH 7.43 H VBG pCO2 46.5 VBG HCO3 30.1 VBG Base Excess 4.9 Sodium 135.1 L Potassium 3.2 L Chloride 94 L Carbon Dioxide 29 Anion Gap 12 BUN 29 H Creatinine 1.23 Est GFR ( Amer) > 60 Glucose 97 Lactic Acid Calcium 8.8 Total Bilirubin 2.9 H AST 64 H Alkaline Phosphatase 202 H Total Protein 7.3 Albumin 3.5 08/28/19 08/28/19 13:00 16:11 WBC RBC Hgb Hct MCV MCH MCHC RDW Plt Count Seg Neutrophils % VBG pH VBG pCO2 VBG HCO3 VBG Base Excess Sodium Potassium Chloride Carbon Dioxide Anion Gap BUN Creatinine Est GFR ( Amer) Glucose Lactic Acid 4.1 H 4.7 H Calcium Total Bilirubin AST Alkaline Phosphatase Total Protein Albumin 08/28/19 13:00 NT-Pro-B Natriuret Pep 71229 H Impressions: Chest X-Ray 08/28/19 13:24 IMPRESSION: COPD with minimal right basilar atelectasis. No pneumonia. Head CT 08/28/19 13:24 IMPRESSION: MILD CHRONIC CHANGES OF ATROPHY AND MICROVASCULAR ISCHEMIA. NO ACUTE PROCESS. EVIDENCE OF ACUTE STROKE: NO. Assessment and Plan - Diagnosis (1) Sepsis Qualifiers: Sepsis type: sepsis due to unspecified organism Sepsis acute organ dysfunction status: with acute organ dysfunction Severe sepsis acute organ dysfunction type: acute liver failure Hepatic coma status: without hepatic coma Severe sepsis shock status: without septic shock Qualified Code(s): A41.9 - Sepsis, unspecified organism; R65.20 - Severe sepsis without septic shock; K72.00 - Acute and subacute hepatic failure without coma Is this a current diagnosis for this admission?: Yes Plan: 08/28/2019 The patient presents from [facility] with sepsis secondary to cellulitis in the right thigh. He has several ulcers on the right leg, as well as the dorsum of the left foot, in this is likely the entry point. I am holding his Aldactone, Lasix and Zaroxolyn temporarily. He will be getting fluids as his lactic acid is 4.7. I have serial lactic acids ordered for this evening. I am going to initiate a short course of hydrocortisone for physiologic stress. The patient has altered mental status from the sepsis and so I spoke to his nephew Parish ([phone]) who informed me of his CODE STATUS as well as providing some history. (2) Cellulitis of leg, right Is this a current diagnosis for this admission?: Yes Plan: 08/28/2019 Ulcers on the right leg and tender erythema on the right thigh. Will treat for cellulitis. Blood cultures have been obtained. He is a long-term resident of [facility]. I am going to start with Unasyn for broad-spectrum coverage and if he does not seem to get better I can increase the spectrum as well as covering for methicillin-resistant staph aureus. (3) Congestive heart failure Qualifiers: Heart failure type: unspecified Heart failure chronicity: acute on chronic Qualified Code(s): I50.9 - Heart failure, unspecified Is this a current diagnosis for this admission?: Yes Plan: 08/28/2019 The patient's nephew was unaware of specific physicians. I have opted to order a consult for cardiology and I have ordered an echocardiogram. Because of his low blood pressure and currently holding the Lasix, Zaroxolyn and spironolactone. He also has hypokalemia which is surprising on Aldactone. I will supplement his potassium by IV and continue his potassium supplementation by mouth. Await the results of the echocardiogram. He may need midodrine to allow for the use of diuretics. (4) Hypokalemia Is this a current diagnosis for this admission?: Yes Plan: 08/28/2019 Supplement potassium. Continue to monitor with serial laboratory studies. (5) Malnutrition Qualifiers: Malnutrition type: protein-calorie malnutrition Protein-calorie malnutrition severity: unspecified severity Qualified Code(s): E46 - Unspecified protein-calorie malnutrition Is this a current diagnosis for this admission?: Yes Plan: 08/28/2019 The patient's BMI is only 15.6. It is hard to know if he has experienced weight loss. Progress notes from August 2018 indicate a body weight of 78 kg. This would certainly indicate severe malnutrition. There is also weakness but I am not sure how much of this is due to his sepsis. Clearly there is malnutrition present. Based on his weight loss alone it is likely severe. (6) Leukocytosis Qualifiers: Leukocytosis type: bandemia Qualified Code(s): D72.825 - Bandemia Is this a current diagnosis for this admission?: Yes Plan: 08/28/2019 The patient had 3% bands with an elevated white blood cell count. This should respond to antibiotics as it is secondary to infection. (7) Hyperbilirubinemia Is this a current diagnosis for this admission?: Yes Plan: 08/28/2019 Elevated bilirubin secondary to sepsis. Will monitor serum chemistries. - Time Time Spent with patient: 35 or more minutes Medications reviewed and adjusted accordingly: Yes Anticipated discharge: [facility] - [facility] - Inpatient Certification Based on my medical assessment, after consideration of the patient's comorbidities, presenting symptoms, or acuity I expect that the services needed warrant INPATIENT care.: Yes I certify that my determination is in accordance with my understanding of Medicare's requirements for reasonable and necessary INPATIENT services [42 CFR 412.3e].: Yes Medical Necessity: Need For IV Fluids, Need For Continuous Telemetry Monitoring, Need for Pain Control, Need for IV Antibiotics 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
--- NOTE | 2019-08-28 17:45 | EKG REPORT ---
SEVERITY:- ABNORMAL ECG - ATRIAL FIBRILLATION LAD, CONSIDER LEFT ANTERIOR FASCICULAR BLOCK PROBABLE ANTEROSEPTAL INFARCT, AGE INDETERM LATERAL LEADS ARE ALSO INVOLVED : Confirmed by: Nishant Schaeffer MD 28-Aug-2019 17:44:36
[2019-08-28] MEDS ORDERED: HYDROCORTISONE SOD SUCCINATE INJ/PF 100 MG/2 ML SDV IV ONE (17:46)
[2019-08-28] MEDS ORDERED: POTASSIUM CHLORIDE 60 MEQ PO SCH (18:00)
[2019-08-28] MEDS ORDERED: MORPHINE SULFATE 10 MG/ML INJ IV PRN (18:02)
[2019-08-28] MEDS: POTASSIUM CHLORIDE 10 MEQ TABLET.ER PO SCH (18:30)
[2019-08-28] MEDS: LACTOBACILLUS ACIDOPHILUS 250 MG TAB PO SCH (18:30)
[2019-08-28] MEDS: AMPICILLIN SODIUM/SULBACTAM NA 1.5 GM in NORMAL SALINE 50 ML IV SCH (20:04)
[2019-08-28] MEDS: FAMOTIDINE 20 MG TABLET PO SCH (22:11)
[2019-08-28] MEDS: ATORVASTATIN CALCIUM 10 MG TABLET PO SCH (22:11)
[2019-08-28] MEDS: HEPARIN SOD (PORCINE) 5,000 UNIT/ML 1 ML VIAL SUBCUT SCH (22:11)
[2019-08-28] MEDS: LATANOPROST 0.005% OPH SOLN 2.5 ML OU SCH (22:12)
[2019-08-28] MEDS: RINGERS SOLUTION,LACTATED 1,000 ML IV PRN (22:13)
[2019-08-28 23:20] LABS: ANION GAP 12 (5-19); BLOOD UREA NITROGEN 34 mg/dL (7-20); CALCIUM 8.3 mg/dL (8.4-10.2); CARBON DIOXIDE 22 mmol/L (22-30); CHLORIDE 101 mmol/L (98-107); GLUCOSE 141 mg/dL (75-110)
[2019-08-28 23:46] LABS: POTASSIUM 4.5 mmol/L (3.6-5.0)
[2019-08-29] MEDS: AMPICILLIN SODIUM/SULBACTAM NA 1.5 GM in NORMAL SALINE 50 ML IV SCH ×2 (00:08→05:39)
[2019-08-29 05:00] LABS: HEMATOCRIT 36.3 % (37.9-51.0); HEMOGLOBIN 13.3 g/dL (13.5-17.0); MEAN CORPUSCULAR HEMOGLOBIN 33.5 pg (27.0-33.4); MEAN CORPUSCULAR HGB CONC 36.7 g/dL (32.0-36.0); MEAN CORPUSCULAR VOLUME 91 fl (80-97); PLATELET COUNT 204 10^3/uL (150-450); RED BLOOD COUNT 3.98 10^6/uL (4.35-5.55); WHITE BLOOD COUNT 18.9 10^3/uL (4.0-10.5)
[2019-08-29 05:16] LABS: ALBUMIN 2.7 g/dL (3.5-5.0); ALKALINE PHOSPHATASE 138 U/L (38-126); ANION GAP 10 (5-19); ASPARTATE AMINO TRANSFERASE 49 U/L (17-59); BILIRUBIN,DIRECT 1.3 mg/dL (0.0-0.4); BILIRUBIN,TOTAL 2.8 mg/dL (0.2-1.3); BLOOD UREA NITROGEN 36 mg/dL (7-20); CALCIUM 8.4 mg/dL (8.4-10.2); CARBON DIOXIDE 24 mmol/L (22-30); CHLORIDE 102 mmol/L (98-107); GLUCOSE 123 mg/dL (75-110); POTASSIUM 4.5 mmol/L (3.6-5.0); TOTAL PROTEIN 6.1 g/dL (6.3-8.2)
[2019-08-29 05:33] LABS: ABSOLUTE LYMPHOCYTES# (MANUAL) 0.9 10^3/uL (0.5-4.7); ABSOLUTE MONOCYTES # (MANUAL) 0.4 10^3/uL (0.1-1.4); BAND NEUTROPHILS % (MANUAL) 2 % (3-5); BASOPHILS % (MANUAL) 0 % (0-2); EOSINOPHILS % (MANUAL) 1 % (0-6); LYMPHOCYTES % (MANUAL) 5 % (13-45); MONOCYTES % (MANUAL) 2 % (3-13); SEGMENTED NEUTROPHILS % (MAN) 90 % (42-78); TOTAL CELLS COUNTED 100
[2019-08-29 05:34] LABS: ANISOCYTOSIS SLIGHT; PLATELET COMMENT ADEQUATE; TARGET CELLS SLIGHT; TEAR DROP CELLS SLIGHT
[2019-08-29] MEDS: RINGERS SOLUTION,LACTATED 1,000 ML IV PRN (05:41)
[2019-08-29] MEDS: HEPARIN SOD (PORCINE) 5,000 UNIT/ML 1 ML VIAL SUBCUT SCH ×3 (05:45→21:58)
[2019-08-29 06:04] LABS: APPEARANCE,URINE CLOUDY; BILIRUBIN,URINE NEGATIVE (NEGATIVE); COLOR,URINE AMBER; GLUCOSE, URINE NEGATIVE (NEGATIVE); KETONES,URINE NEGATIVE (NEGATIVE); LEUKOCYTE ESTERASE,URINE LARGE (NEGATIVE); NITRITE,URINE NEGATIVE (NEGATIVE); PROTEIN,URINE 30 mg/dL (NEGATIVE); URINE SPECIFIC GRAVITY 1.017
[2019-08-29] MEDS ORDERED: CLINDAMYCIN 900 MG/D5W RTU 900 MG/50 ML RTUPB IV ONE (07:00)
--- NOTE | 2019-08-29 09:16 | XCELERA REPORT ---
[address] [address] Transthoracic Echocardiogram Report Name: YAMILE EDMOND Age: 88 yrs Gender: Male : 1930 Patient Status: Inpatient Patient Location: [address] [place], [place] [address] Study Date: 08/28/2019 06:47 PM History: CHF Height: 73 in Weight: 118 lb BSA: 1.7 m2 Procedure: A complete two-dimensional transthoracic echocardiogram was performed (2D, M-mode, spectral and color flow Doppler). The study was technically adequate with some images being suboptimal in quality. Reason For Study: chf Previous Evaluation: No previous studies were available. History: Shortness of breath. CHF. Ordering Physician: JONH GIANG Performed By: Zina Tran Interpretation Summary Left ventricular systolic function is normal. The Ejection Fraction estimate is 55-60% The right ventricular systolic function is mildly reduced. There is a moderate amount of mitral regurgitation There is no aortic valve stenosis There is a mild amount of tricuspid regurgitation There is mild pulmonary hypertension by echo There is no pericardial effusion. MMode/2D Measurements & Calculations RVDd: 3.0 cm LVIDd: 4.0 cm FS: 29.5 % Ao root diam: 3.1 cm IVSd: 1.6 cm LVIDs: 2.8 cm EDV(Teich): 69.6 ml Ao root area: 7.8 cm2 LVPWd: 1.3 cm ESV(Teich): 29.9 ml LA dimension: 4.0 cm EF(Teich): 57.0 % Doppler Measurements & Calculations MV E max teresa: MV P1/2t max teresa: Ao V2 max: AI max teresa: 100.7 cm/sec 112.9 cm/sec 102.6 cm/sec 162.0 cm/sec MV A max teresa: MV P1/2t: 61.9 msec Ao max PG: AI max P.4 cm/sec MVA(P1/2t): 3.6 cm2 4.2 mmHg 10.5 mmHg MV E/A: 2.1 MV dec slope: AI dec slope: 72.3 cm/sec2 534.0 cm/sec2 AI P1/2t: MV dec time: 0.18 sec 656.3 msec LV V1 max PG: PA V2 max: TR max teresa: AV P1/2t-pr_phl: 1.8 mmHg 64.5 cm/sec 289.1 cm/sec 552.8 msec LV V1 max: PA max P.7 mmHg TR max P.5 cm/sec 33.4 mmHg MV P1/2t-pr_phl: 61.9 msec Left Ventricle The left ventricle is grossly normal size. There is severe concentric left ventricular hypertrophy. Left ventricular systolic function is normal. The Ejection Fraction estimate is 55-60%. LV diastolic function not assessed. The left ventricular wall motion is normal. Right Ventricle The right ventricle is grossly normal size. The right ventricular systolic function is mildly reduced. Atria The right atrium is normal. The left atrium is mildly dilated. Mitral Valve Calcified mitral apparatus. The mitral valve leaflets are sclerotic and show some degree of functional abnormality. There is no mitral valve stenosis. There is a moderate amount of mitral regurgitation. Aortic Valve The aortic valve is sclerotic, but shows no functional abnormality. The aortic valve opens well. There is no aortic valve stenosis. There is a trace amount of aortic regurgitation. Tricuspid Valve The tricuspid valve is normal in structure and function. There is a mild amount of tricuspid regurgitation. Right ventricular systolic pressure is estimated to be elevated at 30-40mmHg. There is mild pulmonary hypertension by echo. Great Vessels The aortic root is normal size. The IVC is dilated, but has some respiratory collapse suggesting high central venous pressures. Effusions There is no pericardial effusion. : JONH GIANG Anil
[2019-08-29] MEDS: LACTOBACILLUS ACIDOPHILUS 250 MG TAB PO SCH ×2 (09:40→17:12)
[2019-08-29] MEDS: ASPIRIN 81 MG TABLET, CHEWABLE PO SCH (09:40)
[2019-08-29] MEDS: POTASSIUM CHLORIDE 10 MEQ TABLET.ER PO SCH ×2 (09:40→17:12)
[2019-08-29] MEDS: FAMOTIDINE 20 MG TABLET PO SCH ×2 (09:40→21:59)
[2019-08-29] MEDS: ASCORBIC ACID 500 MG TABLET PO SCH (09:40)
[2019-08-29] MEDS: MAGNESIUM HYDROXIDE SUSP 30 ML UDCUP PO PRN (09:49)
[2019-08-29] MEDS: CEFTRIAXONE 2 GM/D5W RTU 2 GM/50 ML RTUPB IV SCH (09:51)
--- NOTE | 2019-08-29 10:02 | PDOC CONSULTATION ---
Consultation Consult Date: 08/29/19 Provider Consulted: TRAVIS LUI Consult reason:: Congestive heart failure History of Present Illness Admission Date/PCP: 08/28/19 14:57 DUC SIERRA MD Patient complains of: No complaints. Admitted for cellulitis History of Present Illness: YAMILE EDMOND is a 88 year old male Reported to have the following problems 1. Congestive heart failure. 2. Systemic hypertension 3. Atrial fibrillation Patient with the above problems has been admitted from [facility] on account of possible infected right lower extremity with sepsis. Patient is slightly altered in terms of mental status and is unable to relate meaningful history. Most of the history is per chart and from input from nursing staff. Presently patient denies any symptoms whatsoever. His right lower extremity is bandaged. Past Medical History Cardiac Medical History: Reports: Atrial Fibrillation, Congestive Heart Failure, Coronary Artery Disease, Hyperlipidema, Hypertension Denies: DVT, Myocardial Infarction, Pulmonary Embolism Pulmonary Medical History: Reports: Chronic Obstructive Pulmonary Disease (COPD) Denies: Asthma, Bronchitis, Pneumonia, Tuberculosis Neurological Medical History: Denies: Seizures Endocrine Medical History: Denies: Diabetes Mellitus Type 1, Diabetes Mellitus Type 2, Hyperthyroidism, Hypothyroidism Renal/ Medical History: Denies: End Stage Renal Disease Malignancy Medical History: Reports: Other - Prostate GI Medical History: Denies: Cirrhosis, Crohn's Disease, Gastroesophageal Reflux Disease, Hepatitis, Ulcerative Colitis Musculoskeltal Medical History: Denies: Arthritis, Gout Skin Medical History: Denies: Eczema, Psoriasis Psychiatric Medical History: Reports: Dementia Denies: Bipolar Disorder, Depression Hematology: Reports: Anemia Denies: Bleeding Tendencies Past Surgical History Past Surgical History: Reports: Other - Prostate surgery Social History Lives with: Prison Smoking Status: Unknown if Ever Smoked Electronic Cigarette use?: No Frequency of Alcohol Use: None Hx Recreational Drug Use: No Drugs: None Hx Prescription Drug Abuse: No - Advance Directive Resuscitation Status: Full Code Family History Family History: None, Other - Unobtainable. Patient adopted Parental Family History Reviewed: Yes - Unable to obtain on account of altered mental status Children Family History Reviewed: NA Sibling(s) Family History Reviewed.: NA Medication/Allergy Home Medications: Ascorbic Acid [Vitamin C 500 mg Tablet] 500 mg PO DAILY 09/04/18 Calcium Carbonate [Tums Chewable 500 mg Tab.chew] 1,000 mg PO .AFTER MEALS 04/22/19 Latanoprost [Xalatan 0.005% Oph Soln 2.5 ml] 1 drop OU QHS 09/04/18 Atorvastatin Calcium [Lipitor 10 mg Tablet] 10 mg PO QHS #30 tablet 09/06/18 Famotidine [Pepcid 20 mg Tablet] 20 mg PO Q12 tablet 09/06/18 Acetaminophen [Tylenol 325 mg Tablet] 650 mg PO Q4HP PRN 08/28/19 Aspirin [Aspirin 81 mg Chewable Tablet] 81 mg PO DAILY 08/28/19 Furosemide [Lasix 20 mg Tablet] 20 mg PO DAILY 08/28/19 Magnesium Hydroxide [Milk of Magnesia 30 ml Udcup] 30 ml PO PRN PRN 08/28/19 Metolazone [Zaroxolyn 2.5 mg Tablet] 2.5 mg PO MOWEFR@1100 08/28/19 Nitroglycerin 0.4 mg SL Q5MP PRN MDD 1.2 MG 08/28/19 Potassium Chloride [Klor-Con M20] 60 meq PO BID 08/28/19 Spironolactone [Aldactone 25 mg Tablet] 25 mg PO DAILY 08/28/19 Allergies/Adverse Reactions: adhesive tape Adverse Reaction (Intermediate, Verified 08/16/16 13:13) SKIN IRRITATION Review of Systems ROS unobtainable: Other - Unable to obtain on account of poor recall, dementia or altered mental status. Physical Exam Vital Signs: Temp Pulse Resp BP Pulse Ox 98.5 F 51 L 16 95/56 L 100 08/29/19 07:48 08/29/19 07:48 08/29/19 07:48 08/29/19 07:48 08/29/19 07:48 Intake & Output 08/28/19 08/29/19 08/30/19 06:59 06:59 06:59 Intake Total 2750 Output Total 525 Balance 2225 Weight 53.8 kg General appearance: PRESENT: no acute distress, cooperative, well-developed, well-nourished Head exam: PRESENT: atraumatic, normocephalic Eye exam: PRESENT: EOMI Mouth exam: PRESENT: moist Respiratory exam: PRESENT: symmetrical, unlabored Cardiovascular exam: PRESENT: irregular rhythm, +S1, +S2 GI/Abdominal exam: PRESENT: soft Rectal exam: PRESENT: deferred Extremities exam: PRESENT: other - Right lower extremity is bandaged. Erythema around is noted. Neurological exam: PRESENT: alert, awake, oriented to person Skin exam: PRESENT: dry, intact Results Laboratory Results: 08/29/19 04:23 08/29/19 04:23 08/28/19 08/28/19 08/28/19 13:00 13:00 13:00 WBC 16.2 H RBC 4.35 Hgb 14.3 Hct 40.3 MCV 93 MCH 32.9 MCHC 35.6 RDW 15.6 H Plt Count 245 Seg Neutrophils % Not Reportable VBG pH 7.43 H VBG pCO2 46.5 VBG HCO3 30.1 VBG Base Excess 4.9 Sodium 135.1 L Potassium 3.2 L Chloride 94 L Carbon Dioxide 29 Anion Gap 12 BUN 29 H Creatinine 1.23 Est GFR ( Amer) > 60 Glucose 97 Lactic Acid Calcium 8.8 Magnesium Total Bilirubin 2.9 H AST 64 H Alkaline Phosphatase 202 H Total Protein 7.3 Albumin 3.5 Urine Color Urine Appearance Urine pH Ur Specific [place] Urine Protein Urine Glucose (UA) Urine Ketones Urine Blood Urine Nitrite Ur Leukocyte Esterase Urine WBC (Auto) Urine RBC (Auto) 08/28/19 08/28/19 08/28/19 13:00 16:11 19:19 WBC RBC Hgb Hct MCV MCH MCHC RDW Plt Count Seg Neutrophils % VBG pH VBG pCO2 VBG HCO3 VBG Base Excess Sodium Potassium Chloride Carbon Dioxide Anion Gap BUN Creatinine Est GFR ( Amer) Glucose Lactic Acid 4.1 H 4.7 H 4.9 H Calcium Magnesium Total Bilirubin AST Alkaline Phosphatase Total Protein Albumin Urine Color Urine Appearance Urine pH Ur Specific [place] Urine Protein Urine Glucose (UA) Urine Ketones Urine Blood Urine Nitrite Ur Leukocyte Esterase Urine WBC (Auto) Urine RBC (Auto) 08/28/19 08/28/19 08/29/19 22:54 22:54 04:23 WBC 18.9 H RBC 3.98 L Hgb 13.3 L Hct 36.3 L MCV 91 MCH 33.5 H MCHC 36.7 H RDW 16.0 H Plt Count 204 Seg Neutrophils % Not Reportable VBG pH VBG pCO2 VBG HCO3 VBG Base Excess Sodium 134.5 L Potassium 4.5 D Chloride 101 Carbon Dioxide 22 Anion Gap 12 BUN 34 H Creatinine 1.09 Est GFR ( Amer) > 60 Glucose 141 H Lactic Acid 3.5 H Calcium 8.3 L Magnesium Total Bilirubin AST Alkaline Phosphatase Total Protein Albumin Urine Color Urine Appearance Urine pH Ur Specific [place] Urine Protein Urine Glucose (UA) Urine Ketones Urine Blood Urine Nitrite Ur Leukocyte Esterase Urine WBC (Auto) Urine RBC (Auto) 08/29/19 08/29/19 04:23 05:44 WBC RBC Hgb Hct MCV MCH MCHC RDW Plt Count Seg Neutrophils % VBG pH VBG pCO2 VBG HCO3 VBG Base Excess Sodium 135.8 L Potassium 4.5 Chloride 102 Carbon Dioxide 24 Anion Gap 10 BUN 36 H Creatinine 1.07 Est GFR ( Amer) > 60 Glucose 123 H Lactic Acid Calcium 8.4 Magnesium 1.9 Total Bilirubin 2.8 H AST 49 Alkaline Phosphatase 138 H Total Protein 6.1 L Albumin 2.7 L Urine Color ARGENIS Urine Appearance CLOUDY Urine pH 5.0 Ur Specific [place] 1.017 Urine Protein 30 H Urine Glucose (UA) NEGATIVE Urine Ketones NEGATIVE Urine Blood LARGE H Urine Nitrite NEGATIVE Ur Leukocyte Esterase LARGE H Urine WBC (Auto) >182 Urine RBC (Auto) 55 08/28/19 13:00 Blood Blood Culture (PCR) - Final Strep Pyogenes (Grp A) 08/28/19 13:33 Blood Blood Culture (PCR) - Final Strep Pyogenes (Grp A) 08/28/19 13:00 NT-Pro-B Natriuret Pep 11324 H EKG Comments: Twelve-lead EKG independently reviewed. Low amplitude atrial activation?. Possibly atrial fibrillation with controlled ventricular response. Echocardiogram shows preserved left ventricular ejection fraction with severe concentric left ventricular hypertrophy. Moderate mitral regurgitation Impressions: Chest X-Ray 08/28/19 13:24 IMPRESSION: COPD with minimal right basilar atelectasis. No pneumonia. Head CT 08/28/19 13:24 IMPRESSION: MILD CHRONIC CHANGES OF ATROPHY AND MICROVASCULAR ISCHEMIA. NO ACUTE PROCESS. EVIDENCE OF ACUTE STROKE: NO. Assessment & Plan - Diagnosis (1) Cellulitis of leg, right Is this a current diagnosis for this admission?: Yes Plan: This seems to be the active problem with possibility of infection and sepsis. Agree with broad-spectrum antibiotic coverage Watch for improvement. (2) Congestive heart failure Qualifiers: Heart failure type: unspecified Heart failure chronicity: acute on chronic Qualified Code(s): I50.9 - Heart failure, unspecified Is this a current diagnosis for this admission?: Yes Plan: Echocardiogram shows preserved left ventricular ejection fraction. There is moderate mitral regurgitation. There is mild RV dysfunction. Clinically he does not appear to be decompensated. His volume status may be compromised on account of ongoing infection. We will watch this very closely. Presently he does not seem to require significant diuretic. - Notes Notes: Would recommend continuing broad-spectrum antibiotics. Watch volume status closely.
[2019-08-29] MEDS: ALBUMIN HUMAN 12.5 GM/50 ML RTUINJ IV SCH ×2 (11:22→12:51)
[2019-08-29] MEDS: MIDODRINE HCL 5 MG TABLET PO SCH ×2 (15:20→21:58)
[2019-08-29] MEDS: CLINDAMYCIN 900 MG/D5W RTU 900 MG/50 ML RTUPB IV SCH ×2 (15:23→21:59)
--- NOTE | 2019-08-29 17:38 | PDOC PROGRESS REPORT ---
Subjective Progress Note for:: 08/29/19 Subjective:: Patient admitted for sepsis and right leg cellulitis. His right leg seems to have some diffuse erythema though per nursing this is somewhat less severe and may be receding today. Patient is much more alert and interactive per nursing. He is certainly not oriented to anything but himself. Suspect he has severe underlying dementia. ABC elevated lactate is trending down. BNP notably elevated at 15,000. Patient is persistently in A. fib. He cannot articulate specific complaints because of his confusion/dementia. Reason For Visit: SEPSIS,CELLULITIS RIGHT LEG,ACUTE ON CHRONIC Physical Exam Vital Signs: Temp Pulse Resp BP Pulse Ox 98.4 F 64 16 96/50 L 100 08/29/19 10:51 08/29/19 14:00 08/29/19 10:51 08/29/19 10:51 08/29/19 10:51 Intake & Output 08/28/19 08/29/19 08/30/19 06:59 06:59 06:59 Intake Total 2750 1086 Output Total 525 Balance 2225 1086 Weight 53.8 kg General appearance: PRESENT: no acute distress, thin Head exam: PRESENT: atraumatic, normocephalic Eye exam: PRESENT: conjunctiva pink Mouth exam: PRESENT: moist Respiratory exam: PRESENT: clear to auscultation francia. ABSENT: rales, rhonchi, wheezes Cardiovascular exam: PRESENT: RRR. ABSENT: diastolic murmur, rubs, systolic murmur GI/Abdominal exam: PRESENT: normal bowel sounds, soft. ABSENT: distended, guarding, mass, organolmegaly, rebound, tenderness Neurological exam: PRESENT: alert, altered, awake. ABSENT: oriented to person, oriented to place, oriented to time, oriented to situation Psychiatric exam: PRESENT: appropriate affect, normal mood Skin exam: PRESENT: dry, erythema, intact, warm Results Laboratory Results: 08/29/19 04:23 08/29/19 04:23 08/28/19 08/28/19 08/28/19 19:19 22:54 22:54 WBC RBC Hgb Hct MCV MCH MCHC RDW Plt Count Seg Neutrophils % Sodium 134.5 L Potassium 4.5 D Chloride 101 Carbon Dioxide 22 Anion Gap 12 BUN 34 H Creatinine 1.09 Est GFR ( Amer) > 60 Glucose 141 H Lactic Acid 4.9 H 3.5 H Calcium 8.3 L Magnesium Total Bilirubin AST Alkaline Phosphatase Total Protein Albumin Urine Color Urine Appearance Urine pH Ur Specific Colcord Urine Protein Urine Glucose (UA) Urine Ketones Urine Blood Urine Nitrite Ur Leukocyte Esterase Urine WBC (Auto) Urine RBC (Auto) 08/29/19 08/29/19 08/29/19 04:23 04:23 05:44 WBC 18.9 H RBC 3.98 L Hgb 13.3 L Hct 36.3 L MCV 91 MCH 33.5 H MCHC 36.7 H RDW 16.0 H Plt Count 204 Seg Neutrophils % Not Reportable Sodium 135.8 L Potassium 4.5 Chloride 102 Carbon Dioxide 24 Anion Gap 10 BUN 36 H Creatinine 1.07 Est GFR ( Amer) > 60 Glucose 123 H Lactic Acid Calcium 8.4 Magnesium 1.9 Total Bilirubin 2.8 H AST 49 Alkaline Phosphatase 138 H Total Protein 6.1 L Albumin 2.7 L Urine Color ARGENIS Urine Appearance CLOUDY Urine pH 5.0 Ur Specific [place] 1.017 Urine Protein 30 H Urine Glucose (UA) NEGATIVE Urine Ketones NEGATIVE Urine Blood LARGE H Urine Nitrite NEGATIVE Ur Leukocyte Esterase LARGE H Urine WBC (Auto) >182 Urine RBC (Auto) 55 08/28/19 13:00 Blood Blood Culture (PCR) - Final Strep Pyogenes (Grp A) 08/28/19 13:33 Blood Blood Culture (PCR) - Final Strep Pyogenes (Grp A) 08/28/19 13:00 NT-Pro-B Natriuret Pep [id number] H Impressions: Chest X-Ray 08/28/19 13:24 IMPRESSION: COPD with minimal right basilar atelectasis. No pneumonia. Head CT 08/28/19 13:24 IMPRESSION: MILD CHRONIC CHANGES OF ATROPHY AND MICROVASCULAR ISCHEMIA. NO ACUTE PROCESS. EVIDENCE OF ACUTE STROKE: NO. Assessment and Plan - Diagnosis (1) Cellulitis of leg, right Is this a current diagnosis for this admission?: Yes Plan: 08/28/2019 Ulcers on the right leg and tender erythema on the right thigh. Will treat for cellulitis. Blood cultures have been obtained. He is a long-term resident of [facility]. I am going to start with Unasyn for broad-spectrum coverage and if he does not seem to get better I can increase the spectrum as well as covering for methicillin-resistant staph aureus. 08/29/2019 Strep pyogenes now growing in both blood culture bottles. Sensitivities pending Started on appropriate antibiotics with beta-lactam and clindamycin Mentation improvement, blood pressure a bit soft CT of right leg is scheduled for this afternoon. (2) Sepsis Qualifiers: Sepsis type: sepsis due to unspecified organism Sepsis acute organ dysfunction status: with acute organ dysfunction Severe sepsis acute organ dysfunction type: acute liver failure Hepatic coma status: without hepatic coma Severe sepsis shock status: without septic shock Qualified Code(s): A41.9 - Sepsis, unspecified organism; R65.20 - Severe sepsis without septic shock; K72.00 - Acute and subacute hepatic failure without coma Is this a current diagnosis for this admission?: Yes Plan: 08/28/2019 The patient presents from [facility] with sepsis secondary to cellulitis in the right thigh. He has several ulcers on the right leg, as well as the dorsum of the left foot, in this is likely the entry point. I am holding his Aldactone, Lasix and Zaroxolyn temporarily. He will be getting fluids as his lactic acid is 4.7. I have serial lactic acids ordered for this evening. I am going to initiate a short course of hydrocortisone for physiologic stress. The patient has altered mental status from the sepsis and so I spoke to his nephew Parish ([phone]) who informed me of his CODE STATUS as well as providing some history. 08/29/2019 Holding BP meds IV fluids continues Lactic acid trending down (3) Altered mental state Qualifiers: Altered mental status type: unspecified Qualified Code(s): R41.82 - Altered mental status, unspecified Is this a current diagnosis for this admission?: Yes Plan: Suspect underlying dementia as well superimposed on metabolic encephalopathy from sepsis (4) Bilateral leg ulcer Is this a current diagnosis for this admission?: Yes Plan: Wound dressings applied by nursing (5) Congestive heart failure Qualifiers: Heart failure type: unspecified Heart failure chronicity: acute on chronic Qualified Code(s): I50.9 - Heart failure, unspecified Is this a current diagnosis for this admission?: Yes Plan: 08/28/2019 The patient's nephew was unaware of specific physicians. I have opted to order a consult for cardiology and I have ordered an echocardiogram. Because of his low blood pressure and currently holding the Lasix, Zaroxolyn and spironolactone. He also has hypokalemia which is surprising on Aldactone. I will supplement his potassium by IV and continue his potassium supplementation by mouth. Await the results of the echocardiogram. He may need midodrine to allow for the use of diuretics. 08/29/2019 Cardiac meds still held for lower limit normal blood pressures in the setting of sepsis Echocardiogram showed normal EF and some mild RV systolic dysfunction Cardiology following: Hold diuretic as he is well compensated currently (6) Hyperbilirubinemia Is this a current diagnosis for this admission?: Yes (7) Hypokalemia Is this a current diagnosis for this admission?: Yes (8) Leukocytosis Qualifiers: Leukocytosis type: bandemia Qualified Code(s): D72.825 - Bandemia Is this a current diagnosis for this admission?: Yes (9) Benign prostatic hyperplasia Qualifiers: Lower urinary tract symptom presence: symptoms present Is this a current diagnosis for this admission?: Yes (10) Hypertension Qualifiers: Hypertension type: essential hypertension Qualified Code(s): I10 - Essential (primary) hypertension Is this a current diagnosis for this admission?: Yes (11) Malnutrition Qualifiers: Malnutrition type: protein-calorie malnutrition Protein-calorie malnutrition severity: unspecified severity Qualified Code(s): E46 - Unspecified protein-calorie malnutrition Is this a current diagnosis for this admission?: Yes Plan: 08/28/2019 The patient's BMI is only 15.6. It is hard to know if he has experienced weight loss. Progress notes from August 2018 indicate a body weight of 78 kg. This would certainly indicate severe malnutrition. There is also weakness but I am not sure how much of this is due to his sepsis. Clearly there is malnutrition present. Based on his weight loss alone it is likely severe. 08/29/2019 Patient may be appropriate for hospice care in the near future - Time Time Spent with patient: 35 or more minutes Medications reviewed and adjusted accordingly: Yes - Inpatient Certification Medical Necessity: Significant Comorbidiites Make Outpatient Treatment Too Risky, Need Close Monitoring Due to Risk of Patient Decompensation, Need For IV Fluids, Need for IV Antibiotics, Risk of Complication if Not Cared For in Hospital, Risk of Diagnosis Which Will Require Inpatient Eval/Care/Monitoring
[2019-08-29] MEDS: ATORVASTATIN CALCIUM 10 MG TABLET PO SCH (21:59)
[2019-08-29] MEDS: LATANOPROST 0.005% OPH SOLN 2.5 ML OU SCH (21:59)
[2019-08-30 05:12] LABS: HEMATOCRIT 36.3 % (37.9-51.0); HEMOGLOBIN 13.1 g/dL (13.5-17.0); MEAN CORPUSCULAR HGB CONC 36.1 g/dL (32.0-36.0); MEAN CORPUSCULAR VOLUME 92 fl (80-97); PLATELET COUNT 187 10^3/uL (150-450); RED BLOOD COUNT 3.97 10^6/uL (4.35-5.55); RED CELL DISTRIBUTION WIDTH 16.3 % (11.5-14.0); WHITE BLOOD COUNT 16.7 10^3/uL (4.0-10.5)
[2019-08-30 05:37] LABS: ABSOLUTE LYMPHOCYTES# (MANUAL) 1.7 10^3/uL (0.5-4.7); ABSOLUTE MONOCYTES # (MANUAL) 0.8 10^3/uL (0.1-1.4); BAND NEUTROPHILS % (MANUAL) 2 % (3-5); BASOPHILS % (MANUAL) 0 % (0-2); EOSINOPHILS % (MANUAL) 0 % (0-6); LYMPHOCYTES % (MANUAL) 10 % (13-45); MONOCYTES % (MANUAL) 5 % (3-13); NUCLEATED RED BLOOD CELLS 2 /100 WBC (0); SEGMENTED NEUTROPHILS % (MAN) 83 % (42-78); TOTAL CELLS COUNTED 100
[2019-08-30 05:38] LABS: ANISOCYTOSIS 1+; PLATELET COMMENT ADEQUATE; POIKILOCYTOSIS SLIGHT; TARGET CELLS SLIGHT; TOXIC VACUOLATION PRESENT
[2019-08-30] MEDS: MIDODRINE HCL 5 MG TABLET PO SCH ×3 (05:55→21:16)
[2019-08-30] MEDS: HEPARIN SOD (PORCINE) 5,000 UNIT/ML 1 ML VIAL SUBCUT SCH ×3 (05:55→21:08)
[2019-08-30] MEDS: CLINDAMYCIN 900 MG/D5W RTU 900 MG/50 ML RTUPB IV SCH ×3 (05:55→21:07)
--- NOTE | 2019-08-30 10:47 | PDOC PROGRESS REPORT ---
Subjective Progress Note for:: 08/30/19 Subjective:: Patient was seen and examined. He is listless. But does not seem to be in any acute distress. Overall clinically looks slightly better than yesterday. His blood cultures are positive. He is on appropriate antibiotic coverage. Does not look toxic Reason For Visit: SEPSIS,CELLULITIS RIGHT LEG,ACUTE ON CHRONIC Physical Exam Vital Signs: Temp Pulse Resp BP Pulse Ox 97.4 F 55 L 18 116/73 99 08/29/19 23:42 08/30/19 07:00 08/29/19 23:42 08/29/19 23:42 08/30/19 05:02 Intake & Output 08/29/19 08/30/19 08/31/19 06:59 06:59 06:59 Intake Total 2750 1852 50 Output Total 525 500 Balance 2225 1352 50 Weight 53.8 kg 53.8 kg General appearance: PRESENT: no acute distress, cooperative, well-developed, well-nourished Head exam: PRESENT: atraumatic, normocephalic Eye exam: PRESENT: conjunctiva pink, EOMI Mouth exam: PRESENT: dry mucosa Respiratory exam: PRESENT: symmetrical, unlabored Cardiovascular exam: PRESENT: irregular rhythm, +S1, +S2 Pulses: PRESENT: normal radial pulses GI/Abdominal exam: PRESENT: soft Rectal exam: PRESENT: deferred Extremities exam: PRESENT: other - Right lower extremity is bandaged. Area of erythema appears to be better on that extremity. Neurological exam: PRESENT: alert, awake Psychiatric exam: PRESENT: unusual affect Skin exam: PRESENT: dry, intact Results Laboratory Results: 08/30/19 04:47 08/30/19 07:18 08/30/19 08/30/19 08/30/19 04:47 04:47 07:18 WBC 16.7 H RBC 3.97 L Hgb 13.1 L Hct 36.3 L MCV 92 MCH 33.0 MCHC 36.1 H RDW 16.3 H Plt Count 187 Seg Neutrophils % Not Reportable Sodium Cancelled Cancelled Potassium Cancelled Cancelled Chloride Cancelled Cancelled Carbon Dioxide Cancelled Cancelled Anion Gap Cancelled Cancelled BUN Cancelled Cancelled Creatinine Cancelled Cancelled Est GFR ( Amer) Cancelled Cancelled Est GFR (Non-Af Amer) Cancelled Cancelled Glucose Cancelled Cancelled Calcium Cancelled Cancelled Magnesium Cancelled Cancelled 08/28/19 13:00 Blood Blood Culture (PCR) - Final Strep Pyogenes (Grp A) 08/28/19 13:00 Blood Blood Culture - Final Group A Beta Streptococcus 08/28/19 13:33 Blood Blood Culture (PCR) - Final Strep Pyogenes (Grp A) 08/28/19 13:33 Blood Blood Culture - Final Group A Beta Streptococcus 08/28/19 13:00 NT-Pro-B Natriuret Pep [id number] H Impressions: Chest X-Ray 08/28/19 13:24 IMPRESSION: COPD with minimal right basilar atelectasis. No pneumonia. Head CT 08/28/19 13:24 IMPRESSION: MILD CHRONIC CHANGES OF ATROPHY AND MICROVASCULAR ISCHEMIA. NO ACUTE PROCESS. EVIDENCE OF ACUTE STROKE: NO. Assessment & Plan - Diagnosis (1) Cellulitis of leg, right Is this a current diagnosis for this admission?: Yes Plan: Patient is bacteremic. On appropriate antibiotics per cultures. Echocardiogram showed preserved ejection fraction and no significant valve lesion Poor quality of the study precludes assessment of vegetations but no large vegetation was seen. (2) Congestive heart failure Qualifiers: Heart failure type: unspecified Heart failure chronicity: acute on chronic Qualified Code(s): I50.9 - Heart failure, unspecified Is this a current diagnosis for this admission?: Yes Plan: Left ventricular systolic function is preserved on echocardiogram. No sign ificant valve lesion is seen. Patient appears to be fairly euvolemic. (3) Atrial fibrillation Is this a current diagnosis for this admission?: Yes Plan: Rate controlled atrial fibrillation Asymptomatic Not in heart failure Probably continue rate control medications when feasible. Patient is presently not anticoagulated. Review of home medications does not show use of systemic anticoagulation. Without further input regarding bleeding status or fall risk would hold off unless clear information is available regarding this
[2019-08-30] MEDS: CEFTRIAXONE 2 GM/D5W RTU 2 GM/50 ML RTUPB IV SCH (11:03)
[2019-08-30] MEDS: FAMOTIDINE 20 MG TABLET PO SCH ×2 (11:04→21:07)
[2019-08-30] MEDS: LACTOBACILLUS ACIDOPHILUS 250 MG TAB PO SCH ×2 (11:04→18:27)
[2019-08-30] MEDS: ASCORBIC ACID 500 MG TABLET PO SCH (11:04)
[2019-08-30] MEDS: ASPIRIN 81 MG TABLET, CHEWABLE PO SCH (11:04)
[2019-08-30] MEDS: POTASSIUM CHLORIDE 10 MEQ TABLET.ER PO SCH ×3 (11:06→18:30)
[2019-08-30 12:10] LABS: ANION GAP 12 (5-19); BLOOD UREA NITROGEN 49 mg/dL (7-20); CALCIUM 8.7 mg/dL (8.4-10.2); CARBON DIOXIDE 22 mmol/L (22-30); CHLORIDE 101 mmol/L (98-107); GLUCOSE 123 mg/dL (75-110); POTASSIUM 5.4 mmol/L (3.6-5.0)
[2019-08-30] MEDS ORDERED: LORAZEPAM INJ 2 MG/1 ML VIAL IV PRN (13:17)
--- NOTE | 2019-08-30 14:17 | RADIOLOGY REPORT (SQ) ---
EXAM DESCRIPTION: CT RT LOWER EXTREMITY WITH IMAGES COMPLETED DATE/TIME: 08/30/2019 1:57 pm REASON FOR STUDY: Assess for abscess in right thigh COMPARISON: None. TECHNIQUE: Axial imaging performed through the Right femur post IV contrast with reformatted coronal and sagittal imaging windowed for bone and soft tissues. Images saved to PAC S. 3D IMAGING: Were 3D images as MIP, SSD, or volume rendering performed at the work station? No LIMITATIONS: None. FINDINGS: SOFT TISSUES: Cellulitis primarily dependent portions of the humerus. No abscess. Major vessels are patent. BONY STRUCTURES: No evidence of osteomyelitis. MINERALIZATION: Normal. OTHER: No other significant finding. IMPRESSION: No evidence of abscess or osteomyelitis. Reading location - IP/workstation name: [email or web address]
--- NOTE | 2019-08-30 14:50 | PDOC PROGRESS REPORT ---
Subjective Progress Note for:: 08/30/19 Subjective:: Patient refused her CT scan yesterday after he reportedly did not "give consent" to the radiology department. We attempted CT again today with [employer] professor of public administration to help with patient agitation. CT done but not read. Given the risk for overwhelming soft tissue infection possibly requiring surgical intervention, consulted general surgery. WBC lower, blood cultures growing group A invasive strep per micro lab who called me today. They have also notified the health department who will be reaching out to the nursing facility to take appropriate precautions. Patient cannot articulate any specific complaints today. Reason For Visit: SEPSIS,CELLULITIS RIGHT LEG,ACUTE ON CHRONIC Physical Exam Vital Signs: Temp Pulse Resp BP Pulse Ox 97.6 F 56 L 17 105/64 99 08/30/19 10:57 08/30/19 10:57 08/30/19 10:57 08/30/19 10:57 08/30/19 10:57 Intake & Output 08/29/19 08/30/19 08/31/19 06:59 06:59 06:59 Intake Total 2750 1852 676 Output Total 525 500 250 Balance 2225 1352 426 Weight 53.8 kg 53.8 kg General appearance: PRESENT: no acute distress, well-developed, well-nourished Head exam: PRESENT: atraumatic, normocephalic Eye exam: PRESENT: conjunctiva pink Mouth exam: PRESENT: moist Respiratory exam: PRESENT: clear to auscultation francia. ABSENT: rales, rhonchi, wheezes Cardiovascular exam: PRESENT: RRR. ABSENT: diastolic murmur, rubs, systolic murmur GI/Abdominal exam: PRESENT: normal bowel sounds, soft. ABSENT: distended, guarding, mass, organolmegaly, rebound, tenderness Extremities exam: PRESENT: pedal edema Neurological exam: PRESENT: alert, altered, awake, oriented to person. ABSENT: oriented to place, oriented to time, oriented to situation Psychiatric exam: PRESENT: appropriate affect, normal mood Skin exam: PRESENT: dry, erythema - Erythema extending from groin area down to knee, previously drawn borders do not show erythema extending beyond them but rather receding approximately half an inch today, warm Results Laboratory Results: 08/30/19 04:47 08/30/19 11:30 08/30/19 08/30/19 08/30/19 04:47 04:47 07:18 WBC 16.7 H RBC 3.97 L Hgb 13.1 L Hct 36.3 L MCV 92 MCH 33.0 MCHC 36.1 H RDW 16.3 H Plt Count 187 Seg Neutrophils % Not Reportable Sodium Cancelled Cancelled Potassium Cancelled Cancelled Chloride Cancelled Cancelled Carbon Dioxide Cancelled Cancelled Anion Gap Cancelled Cancelled BUN Cancelled Cancelled Creatinine Cancelled Cancelled Est GFR ( Amer) Cancelled Cancelled Est GFR (Non-Af Amer) Cancelled Cancelled Glucose Cancelled Cancelled Calcium Cancelled Cancelled Magnesium Cancelled Cancelled 08/30/19 11:30 WBC RBC Hgb Hct MCV MCH MCHC RDW Plt Count Seg Neutrophils % Sodium 135.2 L Potassium 5.4 H Chloride 101 Carbon Dioxide 22 Anion Gap 12 BUN 49 H Creatinine 1.20 Est GFR ( Amer) > 60 Est GFR (Non-Af Amer) Glucose 123 H Calcium 8.7 Magnesium 2.1 08/28/19 13:00 Blood Blood Culture (PCR) - Final Strep Pyogenes (Grp A) 08/28/19 13:00 Blood Blood Culture - Final Group A Beta Streptococcus 08/28/19 13:33 Blood Blood Culture (PCR) - Final Strep Pyogenes (Grp A) 08/28/19 13:33 Blood Blood Culture - Final Group A Beta Streptococcus 08/28/19 08/30/19 13:00 11:30 Creatine Kinase 108 NT-Pro-B Natriuret Pep [id number] H Impressions: Chest X-Ray 08/28/19 13:24 IMPRESSION: COPD with minimal right basilar atelectasis. No pneumonia. Head CT 08/28/19 13:24 IMPRESSION: MILD CHRONIC CHANGES OF ATROPHY AND MICROVASCULAR ISCHEMIA. NO ACUTE PROCESS. EVIDENCE OF ACUTE STROKE: NO. Lower Extremity CT 08/30/19 08:00 IMPRESSION: No evidence of abscess or osteomyelitis. Assessment and Plan - Diagnosis (1) Cellulitis of leg, right Is this a current diagnosis for this admission?: Yes Plan: 08/28/2019 Ulcers on the right leg and tender erythema on the right thigh. Will treat for cellulitis. Blood cultures have been obtained. He is a long-term resident of [facility]. I am going to start with Unasyn for broad-spectrum coverage and if he does not seem to get better I can increase the spectrum as well as covering for methicillin-resistant staph aureus. Invasive group A strep pyogenes now growing in both blood culture bottles. discussed with microbiology lab Started on appropriate antibiotics with ceftriaxone and clindamycin, notable improvement thereafter Mentation improvement gradually, suspect he has underlying dementia as well CT of right leg done; follow-up radiology read Consulted general surgery (2) Sepsis Qualifiers: Sepsis type: sepsis due to unspecified organism Sepsis acute organ dysfunction status: with acute organ dysfunction Severe sepsis acute organ dysfunction type: acute liver failure Hepatic coma status: without hepatic coma Severe sepsis shock status: without septic shock Qualified Code(s): A41.9 - Sepsis, unspecified organism; R65.20 - Severe sepsis without septic armin ck; K72.00 - Acute and subacute hepatic failure without coma Is this a current diagnosis for this admission?: Yes Plan: 08/28/2019 The patient presents from [facility] with sepsis secondary to cellulitis in the right thigh. He has several ulcers on the right leg, as well as the dorsum of the left foot, in this is likely the entry point. I am holding his Aldactone, Lasix and Zaroxolyn temporarily. He will be getting fluids as his lactic acid is 4.7. I have serial lactic acids ordered for this evening. I am going to initiate a short course of hydrocortisone for physiologic stress. The patient has altered mental status from the sepsis and so I spoke to his nephew Parish ([phone]) who informed me of his CODE STATUS as well as providing some history. Sources RLE cellulitis and possibly UTI Held BP meds IV fluids given Lactic acid trending down (3) Altered mental state Qualifiers: Altered mental status type: unspecified Qualified Code(s): R41.82 - Altered mental status, unspecified Is this a current diagnosis for this admission?: Yes (4) Bilateral leg ulcer Is this a current diagnosis for this admission?: Yes Plan: Wound dressings applied by nursing Chronic venous stasis ulcers (5) Congestive heart failure Qualifiers: Heart failure type: unspecified Heart failure chronicity: acute on chronic Qualified Code(s): I50.9 - Heart failure, unspecified Is this a current diagnosis for this admission?: Yes Plan: 08/28/2019 The patient's nephew was unaware of specific physicians. I have opted to order a consult for cardiology and I have ordered an echocardiogram. Because of his low blood pressure and currently holding the Lasix, Zaroxolyn and spironolactone. He also has hypokalemia which is surprising on Aldactone. I will supplement his potassium by IV and continue his potassium supplementation by mouth. Await the results of the echocardiogram. He may need midodrine to allow for the use of diuretics. Cardiac meds held for lower limit normal blood pressures in the setting of sepsis Echocardiogram showed normal EF and some mild RV systolic dysfunction Cardiology following: Hold diuretic as he is well compensated currently Cautious use of IV fluids when needed (6) Hyperbilirubinemia Is this a current diagnosis for this admission?: Yes (7) Hypokalemia Is this a current diagnosis for this admission?: Yes (8) Leukocytosis Qualifiers: Leukocytosis type: bandemia Qualified Code(s): D72.825 - Bandemia Is this a current diagnosis for this admission?: Yes (9) Benign prostatic hyperplasia Qualifiers: Lower urinary tract symptom presence: symptoms present Is this a current diagnosis for this admission?: Yes (10) Hypertension Qualifiers: Hypertension type: essential hypertension Qualified Code(s): I10 - Essential (primary) hypertension Is this a current diagnosis for this admission?: Yes (11) Malnutrition Qualifiers: Malnutrition type: protein-calorie malnutrition Protein-calorie malnutrition severity: unspecified severity Qualified Code(s): E46 - Unspecified protein-calorie malnutrition Is this a current diagnosis for this admission?: Yes - Time Time Spent with patient: 25-34 minutes Medications reviewed and adjusted accordingly: Yes - Inpatient Certification Medical Necessity: Significant Comorbidiites Make Outpatient Treatment Too Risky, Need Close Monitoring Due to Risk of Patient Decompensation, Need for IV Antibiotics, Risk of Complication if Not Cared For in Hospital, Risk of Diagnosis Which Will Require Inpatient Eval/Care/Monitoring
[2019-08-30] MEDS ORDERED: KETOROLAC TROMETHAMINE INJ/PF 30 MG/1 ML SDV IV PRN (19:33)
--- NOTE | 2019-08-30 20:41 | PDOC CONSULTATION ---
Consultation Consult Date: 08/30/19 Provider Consulted: CASIMIRO GROVES Consult reason:: Cellulitis right leg History of Present Illness Admission Date/PCP: 08/28/19 14:57 DUC SIERRA MD History of Present Illness: YAMILE EDMOND is a 88 year old male Patient admitted for cellulitis of right leg and sepsis on 08/28/2019. Patient had blood cultures which showed group A beta strep and group A streptococcus pyogeness. A CT scan of the right leg done today which showed no evidence of abscess nor osteomyelitis. Patient apparently clinically improving with better mental mentation though still quite demented. Past Medical History Cardiac Medical History: Reports: Atrial Fibrillation, Congestive Heart Failure, Coronary Artery Disease, Hyperlipidema, Hypertension Denies: DVT, Myocardial Infarction, Pulmonary Embolism Pulmonary Medical History: Reports: Chronic Obstructive Pulmonary Disease (COPD) Denies: Asthma, Bronchitis, Pneumonia, Tuberculosis Neurological Medical History: Denies: Seizures Endocrine Medical History: Denies: Diabetes Mellitus Type 1, Diabetes Mellitus Type 2, Hyperthyroidism, Hypothyroidism Renal/ Medical History: Denies: End Stage Renal Disease Malignancy Medical History: Reports: Other - Prostate GI Medical History: Denies: Cirrhosis, Crohn's Disease, Gastroesophageal Reflux Disease, Hepatitis, Ulcerative Colitis Musculoskeltal Medical History: Denies: Arthritis, Gout Skin Medical History: Denies: Eczema, Psoriasis Psychiatric Medical History: Reports: Dementia Denies: Bipolar Disorder, Depression Hematology: Reports: Anemia Denies: Bleeding Tendencies Past Surgical History Past Surgical History: Reports: Other - Prostate surgery Social History Lives with: [facility] Smoking Status: Unknown if Ever Smoked Electronic Cigarette use?: No Frequency of Alcohol Use: None Hx Recreational Drug Use: No Drugs: None Hx Prescription Drug Abuse: No - Advance Directive Resuscitation Status: Full Code Family History Family History: None, Other - Unobtainable. Patient adopted Parental Family History Reviewed: No Children Family History Reviewed: No Sibling(s) Family History Reviewed.: No Medication/Allergy Home Medications: Ascorbic Acid [Vitamin C 500 mg Tablet] 500 mg PO DAILY 09/04/18 Calcium Carbonate [Tums Chewable 500 mg Tab.chew] 1,000 mg PO .AFTER MEALS 09/04/18 Latanoprost [Xalatan 0.005% Oph Soln 2.5 ml] 1 drop OU QHS 09/04/18 Atorvastatin Calcium [Lipitor 10 mg Tablet] 10 mg PO QHS #30 tablet 09/06/18 Famotidine [Pepcid 20 mg Tablet] 20 mg PO Q12 tablet 09/06/18 Acetaminophen [Tylenol 325 mg Tablet] 650 mg PO Q4HP PRN 08/28/19 Aspirin [Aspirin 81 mg Chewable Tablet] 81 mg PO DAILY 08/28/19 Furosemide [Lasix 20 mg Tablet] 20 mg PO DAILY 08/28/19 Magnesium Hydroxide [Milk of Magnesia 30 ml Udcup] 30 ml PO PRN PRN 08/28/19 Metolazone [Zaroxolyn 2.5 mg Tablet] 2.5 mg PO MOWEFR@1100 08/28/19 Nitroglycerin 0.4 mg SL Q5MP PRN MDD 1.2 MG 08/28/19 Potassium Chloride [Klor-Con M20] 60 meq PO BID 08/28/19 Spironolactone [Aldactone 25 mg Tablet] 25 mg PO DAILY 08/28/19 Allergies/Adverse Reactions: adhesive tape Adverse Reaction (Intermediate, Verified 08/16/16 13:13) SKIN IRRITATION Review of Systems ROS unobtainable: Due to mental status Physical Exam Vital Signs: Temp Pulse Resp BP Pulse Ox 97.6 F 54 L 17 105/64 99 08/30/19 10:57 08/30/19 14:00 08/30/19 10:57 08/30/19 10:57 08/30/19 10:57 Intake & Output 08/29/19 08/30/19 08/31/19 06:59 06:59 06:59 Intake Total 2750 1852 1202 Output Total 525 500 250 Balance 2225 1352 952 Weight 53.8 kg 53.8 kg General appearance: PRESENT: no acute distress Exam: Right leg showed erythema and swelling primarily on the lateral aspect of the thigh and the knee area. Has wounds on the right ankle at this time covered with Xeroform gauze. Also has some ulcers on the dorsum of the left foot. I can feel a good popliteal artery pulse but unable to palpate right ankle pulses. Results Laboratory Results: 08/30/19 04:47 08/30/19 11:30 08/30/19 08/30/19 08/30/19 04:47 04:47 07:18 WBC 16.7 H RBC 3.97 L Hgb 13.1 L Hct 36.3 L MCV 92 MCH 33.0 MCHC 36.1 H RDW 16.3 H Plt Count 187 Seg Neutrophils % Not Reportable Sodium Cancelled Cancelled Potassium Cancelled Cancelled Chloride Cancelled Cancelled Carbon Dioxide Cancelled Cancelled Anion Gap Cancelled Cancelled BUN Cancelled Cancelled Creatinine Cancelled Cancelled Est GFR ( Amer) Cancelled Cancelled Est GFR (Non-Af Amer) Cancelled Cancelled Glucose Cancelled Cancelled Calcium Cancelled Cancelled Magnesium Cancelled Cancelled 08/30/19 11:30 WBC RBC Hgb Hct MCV MCH MCHC RDW Plt Count Seg Neutrophils % Sodium 135.2 L Potassium 5.4 H Chloride 101 Carbon Dioxide 22 Anion Gap 12 BUN 49 H Creatinine 1.20 Est GFR ( Amer) > 60 Est GFR (Non-Af Amer) Glucose 123 H Calcium 8.7 Magnesium 2.1 08/28/19 13:00 Blood Blood Culture (PCR) - Final Strep Pyogenes (Grp A) 08/28/19 13:00 Blood Blood Culture - Final Group A Beta Streptococcus 08/28/19 13:33 Blood Blood Culture (PCR) - Final Strep Pyogenes (Grp A) 08/28/19 13:33 Blood Blood Culture - Final Group A Beta Streptococcus 08/28/19 08/30/19 13:00 11:30 Creatine Kinase 108 NT-Pro-B Natriuret Pep [id number] H Impressions: Chest X-Ray 08/28/19 13:24 IMPRESSION: COPD with minimal right basilar atelectasis. No pneumonia. Head CT 08/28/19 13:24 IMPRESSION: MILD CHRONIC CHANGES OF ATROPHY AND MICROVASCULAR ISCHEMIA. NO ACUTE PROCESS. EVIDENCE OF ACUTE STROKE: NO. Lower Extremity CT 08/30/19 08:00 IMPRESSION: No evidence of abscess or osteomyelitis. Assessment & Plan - Diagnosis (1) Altered mental state Qualifiers: Altered mental status type: unspecified Qualified Code(s): R41.82 - Altered mental status, unspecified Is this a current diagnosis for this admission?: Yes (2) Atrial fibrillation Is this a current diagnosis for this admission?: Yes (3) Cellulitis of leg, right Is this a current diagnosis for this admission?: Yes - Time Time Spent: 30 to 50 Minutes - Inpatient Certification Medical Necessity: Need for IV Antibiotics - Plan Summary Plan Summary: 88-year-old male admitted for cellulitis of the right leg with sepsis. Clinically patient appears to be getting better. However blood culture showed group A beta strep and group A strep pyogenes. He had a CT scan of the right leg today which showed no evidence of abscess nor osteomyelitis. Medically the right leg still erythematous with some swelling but no gross tenderness. I can feel a good popliteal artery pulse. Recommendations: There is no indication for surgical intervention at this time based on clinical and CT scan findings. We will be available if there is any obvious need for debridement or I&D. I will check him again tomorrow.
[2019-08-30] MEDS: HYDROCORTISONE SOD SUCCINATE INJ/PF 100 MG/2 ML SDV IV SCH (21:06)
[2019-08-30] MEDS: ATORVASTATIN CALCIUM 10 MG TABLET PO SCH (21:07)
[2019-08-30] MEDS: LATANOPROST 0.005% OPH SOLN 2.5 ML OU SCH (21:16)
[2019-08-31] MEDS: MIDODRINE HCL 5 MG TABLET PO SCH ×3 (05:25→23:38)
[2019-08-31] MEDS: HYDROCORTISONE SOD SUCCINATE INJ/PF 100 MG/2 ML SDV IV SCH ×3 (05:25→23:38)
[2019-08-31] MEDS: HEPARIN SOD (PORCINE) 5,000 UNIT/ML 1 ML VIAL SUBCUT SCH ×3 (05:25→23:38)
[2019-08-31] MEDS: CLINDAMYCIN 900 MG/D5W RTU 900 MG/50 ML RTUPB IV SCH ×3 (05:29→23:45)
[2019-08-31 06:02] LABS: ABSOLUTE LYMPHOCYTES (AUTO) 0.7 10^3/uL (0.5-4.7); ABSOLUTE MONOCYTES (AUTO) 0.5 10^3/uL (0.1-1.4); ABSOLUTE NEUT (AUTO) 9.1 10^3/uL (1.7-8.2); BASOPHILS % (AUTO) 0.2 % (0-2); EOSINOPHILS % (AUTO) 0.1 % (0-6); HEMATOCRIT 36.1 % (37.9-51.0); HEMOGLOBIN 12.9 g/dL (13.5-17.0); LYMPHOCYTES % (AUTO) 6.5 % (13-45); MEAN CORPUSCULAR HEMOGLOBIN 32.9 pg (27.0-33.4); MEAN CORPUSCULAR HGB CONC 35.8 g/dL (32.0-36.0); MEAN CORPUSCULAR VOLUME 92 fl (80-97); MONOCYTES % (AUTO) 4.5 % (3-13); PLATELET COUNT 196 10^3/uL (150-450); RED BLOOD COUNT 3.92 10^6/uL (4.35-5.55); RED CELL DISTRIBUTION WIDTH 15.7 % (11.5-14.0); SEGMENTED NEUTROPHILS % (AUTO) 88.7 % (42-78); TOTAL CELLS COUNTED % (AUTO) 100 %; WHITE BLOOD COUNT 10.3 10^3/uL (4.0-10.5)
[2019-08-31 06:26] LABS: ANION GAP 10 (5-19); BLOOD UREA NITROGEN 41 mg/dL (7-20); CALCIUM 8.6 mg/dL (8.4-10.2); CARBON DIOXIDE 22 mmol/L (22-30); CHLORIDE 100 mmol/L (98-107); GLUCOSE 138 mg/dL (75-110); POTASSIUM 5.7 mmol/L (3.6-5.0)
[2019-08-31] MEDS ORDERED: SODIUM POLYSTYRENE SULFONATE 15 GM/60 ML PO ONE (09:00)
--- NOTE | 2019-08-31 11:00 | PDOC PROGRESS REPORT ---
Subjective Progress Note for:: 08/31/19 Subjective:: Feels a lot better this morning. No pains along the right lower leg. Reason For Visit: SEPSIS,CELLULITIS RIGHT LEG,ACUTE ON CHRONIC Physical Exam Vital Signs: Temp Pulse Resp BP Pulse Ox 97.3 F 47 L 16 124/73 100 08/31/19 07:25 08/31/19 07:25 08/31/19 07:25 08/31/19 07:25 08/31/19 07:25 Intake & Output 08/30/19 08/31/19 09/01/19 06:59 06:59 06:59 Intake Total 1852 1302 Output Total 500 500 Balance 1352 802 Weight 53.8 kg 53.8 kg Exam: Right lower leg cellulitis appears to be improving with decrease in swelling and erythema. Results Laboratory Results: 08/31/19 05:50 08/31/19 05:00 08/30/19 08/31/19 08/31/19 11:30 05:00 05:50 WBC 10.3 RBC 3.92 L Hgb 12.9 L Hct 36.1 L MCV 92 MCH 32.9 MCHC 35.8 RDW 15.7 H Plt Count 196 Seg Neutrophils % 88.7 H Sodium 135.2 L 132.0 L Potassium 5.4 H 5.7 H Chloride 101 100 Carbon Dioxide 22 22 Anion Gap 12 10 BUN 49 H 41 H Creatinine 1.20 1.03 Est GFR ( Amer) > 60 > 60 Glucose 123 H 138 H Calcium 8.7 8.6 Magnesium 2.1 2.1 08/28/19 13:00 Blood Blood Culture (PCR) - Final Strep Pyogenes (Grp A) 08/28/19 13:00 Blood Blood Culture - Final Group A Beta Streptococcus 08/28/19 13:33 Blood Blood Culture (PCR) - Final Strep Pyogenes (Grp A) 08/28/19 13:33 Blood Blood Culture - Final Group A Beta Streptococcus 08/28/19 08/30/19 13:00 11:30 Creatine Kinase 108 NT-Pro-B Natriuret Pep 35230 H Impressions: Chest X-Ray 08/28/19 13:24 IMPRESSION: COPD with minimal right basilar atelectasis. No pneumonia. Head CT 08/28/19 13:24 IMPRESSION: MILD CHRONIC CHANGES OF ATROPHY AND MICROVASCULAR ISCHEMIA. NO ACUTE PROCESS. EVIDENCE OF ACUTE STROKE: NO. Lower Extremity CT 08/30/19 08:00 IMPRESSION: No evidence of abscess or osteomyelitis. Assessment & Plan - Diagnosis (1) Altered mental state Qualifiers: Altered mental status type: unspecified Qualified Code(s): R41.82 - Altered mental status, unspecified Is this a current diagnosis for this admission?: Yes (2) Atrial fibrillation Is this a current diagnosis for this admission?: Yes (3) Cellulitis of leg, right Is this a current diagnosis for this admission?: Yes - Time Critical Time spent with patient: 15-24 minutes - Inpatient Certification Medical Necessity: Need for IV Antibiotics - Plan Summary Plan Summary: 88-year-old male with cellulitis of the right leg. CT scan yesterday showed no abscess nor osteomyelitis. Blood cultures positive for group A beta-hemolytic strep. This morning he is cellulitis of the right leg appears to be getting better. His white count is normal this morning. Recommendations: Patient cellulitis appears to be getting better with medical management. Surgery will sign off and call us for any questions.
[2019-08-31] MEDS: ASPIRIN 81 MG TABLET, CHEWABLE PO SCH (11:07)
[2019-08-31] MEDS: LACTOBACILLUS ACIDOPHILUS 250 MG TAB PO SCH ×2 (11:07→18:48)
[2019-08-31] MEDS: CEFTRIAXONE 2 GM/D5W RTU 2 GM/50 ML RTUPB IV SCH (11:07)
[2019-08-31] MEDS: FAMOTIDINE 20 MG TABLET PO SCH ×2 (11:08→23:38)
[2019-08-31] MEDS: ASCORBIC ACID 500 MG TABLET PO SCH (11:08)
--- NOTE | 2019-08-31 17:59 | PDOC PROGRESS REPORT ---
Subjective Progress Note for:: 08/31/19 Subjective:: Patient continues to improve today. Consulted surgery yesterday who visited patient and stated he does not need any surgical intervention. Appreciate their expertise in evaluating his cellulitis. CT of right leg did not show any abscess or osteomyelitis. He is satting 100% on 2 L nasal cannula and he probably does not require supplemental oxygen at all, will need nursing to titrate this off. CBC lower, potassium notably higher and he was given Kayexalate this morning. He does not articulate any specific complaints today. Physical therapy consulted. Reason For Visit: SEPSIS,CELLULITIS RIGHT LEG,ACUTE ON CHRONIC Physical Exam Vital Signs: Temp Pulse Resp BP Pulse Ox 97.8 F 61 20 104/63 100 08/31/19 16:00 08/31/19 16:00 08/31/19 16:00 08/31/19 16:00 08/31/19 16:00 Intake & Output 08/30/19 08/31/19 09/01/19 06:59 06:59 06:59 Intake Total 1852 1302 340 Output Total 500 500 300 Balance 1352 802 40 Weight 53.8 kg 53.8 kg General appearance: PRESENT: no acute distress, well-developed, well-nourished Head exam: PRESENT: atraumatic, normocephalic Eye exam: PRESENT: conjunctiva pink Mouth exam: PRESENT: moist Respiratory exam: PRESENT: clear to auscultation francia. ABSENT: rales, rhonchi, wheezes Cardiovascular exam: PRESENT: RRR. ABSENT: diastolic murmur, rubs, systolic murmur GI/Abdominal exam: PRESENT: normal bowel sounds, soft. ABSENT: distended, guarding, mass, organolmegaly, rebound, tenderness Rectal exam: PRESENT: deferred Neurological exam: PRESENT: alert, awake, oriented to person. ABSENT: oriented to place, oriented to time, oriented to situation Psychiatric exam: PRESENT: appropriate affect, normal mood Skin exam: PRESENT: dry, erythema - Receding erythema of right leg with evolution into a darker purple/pink color consistent with healing. Results Laboratory Results: 08/31/19 05:50 08/31/19 05:00 08/31/19 08/31/19 05:00 05:50 WBC 10.3 RBC 3.92 L Hgb 12.9 L Hct 36.1 L MCV 92 MCH 32.9 MCHC 35.8 RDW 15.7 H Plt Count 196 Seg Neutrophils % 88.7 H Sodium 132.0 L Potassium 5.7 H Chloride 100 Carbon Dioxide 22 Anion Gap 10 BUN 41 H Creatinine 1.03 Est GFR ( Amer) > 60 Glucose 138 H Calcium 8.6 Magnesium 2.1 08/28/19 08/30/19 13:00 11:30 Creatine Kinase 108 NT-Pro-B Natriuret Pep 37340 H Impressions: Chest X-Ray 08/28/19 13:24 IMPRESSION: COPD with minimal right basilar atelectasis. No pneumonia. Head CT 08/28/19 13:24 IMPRESSION: MILD CHRONIC CHANGES OF ATROPHY AND MICROVASCULAR ISCHEMIA. NO ACUTE PROCESS. EVIDENCE OF ACUTE STROKE: NO. Lower Extremity CT 08/30/19 08:00 IMPRESSION: No evidence of abscess or osteomyelitis. Assessment and Plan - Diagnosis (1) Cellulitis of leg, right Is this a current diagnosis for this admission?: Yes Plan: 08/28/2019 Ulcers on the right leg and tender erythema on the right thigh. Will treat for cellulitis. Blood cultures have been obtained. He is a long-term resident of [facility]. I am going to start with Unasyn for broad-spectrum coverage and if he does not seem to get better I can increase the spectrum as well as covering for methicillin-resistant staph aureus. Invasive group A strep pyogenes now growing in both blood culture bottles. discussed with microbiology lab Started on appropriate antibiotics with ceftriaxone and clindamycin, notable improvement thereafter Mentation improvement gradually, suspect he has underlying dementia as well CT of right leg done; follow-up radiology read Consulted general surgery 08/31/2019 CT right leg did not show any cellulitis or osteomyelitis General surgery visited patient stated there is no surgical intervention Significant improvement in cellulitis overall with receding erythema, nontender today, white blood cell lower (2) Sepsis Qualifiers: Sepsis type: sepsis due to unspecified organism Sepsis acute organ dysfunction status: with acute organ dysfunction Severe sepsis acute organ dysfunction type: acute liver failure Hepatic coma status: without hepatic coma Severe sepsis shock status: without septic shock Qualified Code(s): A41.9 - Sepsis, unspecified organism; R65.20 - Severe sepsis without septic shock; K72.00 - Acute and subacute hepatic failure without coma Is this a current diagnosis for this admission?: Yes Plan: 08/28/2019 The patient presents from [facility] with sepsis secondary to cellulitis in the right thigh. He has several ulcers on the right leg, as well as the dorsum of the left foot, in this is likely the entry point. I am holding his Aldactone, Lasix and Zaroxolyn temporarily. He will be getting fluids as his lactic acid is 4.7. I have serial lactic acids ordered for this evening. I am going to initiate a short course of hydrocortisone for physiologic stress. The patient has altered mental status from the sepsis and so I spoke to his nephew Parish ([phone]) who informed me of his CODE STATUS as well as providing some history. Sources RLE cellulitis and possibly UTI Held BP meds IV fluids given Lactic acid trending down 08/30/2021 Resolved (3) Altered mental state Qualifiers: Altered mental status type: unspecified Qualified Code(s): R41.82 - Altered mental status, unspecified Is this a current diagnosis for this admission?: Yes (4) Bilateral leg ulcer Is this a current diagnosis for this admission?: Yes Plan: Wound dressings applied by nursing Chronic venous stasis ulcers Improving with local wound care (5) Congestive heart failure Qualifiers: Heart failure type: unspecified Heart failure chronicity: acute on chronic Qualified Code(s): I50.9 - Heart failure, unspecified Is this a current diagnosis for this admission?: Yes (6) Hyperbilirubinemia Is this a current diagnosis for this admission?: Yes (7) Hypokalemia Is this a current diagnosis for this admission?: Yes (8) Leukocytosis Qualifiers: Leukocytosis type: bandemia Qualified Code(s): D72.825 - Bandemia Is this a current diagnosis for this admission?: Yes (9) Benign prostatic hyperplasia Qualifiers: Lower urinary tract symptom presence: symptoms present Is this a current diagnosis for this admission?: Yes (10) Hypertension Qualifiers: Hypertension type: essential hypertension Qualified Code(s): I10 - Essential (primary) hypertension Is this a current diagnosis for this admission?: Yes (11) Malnutrition Qualifiers: Malnutrition type: protein-calorie malnutrition Protein-calorie malnutrition severity: unspecified severity Qualified Code(s): E46 - Unspecified protein-calorie malnutrition Is this a current diagnosis for this admission?: Yes - Time Time Spent with patient: 25-34 minutes Medications reviewed and adjusted accordingly: Yes Anticipated discharge: SNF Within: within 48 hours - Inpatient Certification Medical Necessity: Significant Comorbidiites Make Outpatient Treatment Too Risky, Need Close Monitoring Due to Risk of Patient Decompensation, Need for IV Antibiotics, Risk of Complication if Not Cared For in Hospital, Risk of Diagnosis Which Will Require Inpatient Eval/Care/Monitoring
[2019-08-31] MEDS: ATORVASTATIN CALCIUM 10 MG TABLET PO SCH (23:38)
[2019-08-31] MEDS: LATANOPROST 0.005% OPH SOLN 2.5 ML OU SCH (23:40)
[2019-09-01] MEDS: MIDODRINE HCL 5 MG TABLET PO SCH ×3 (06:58→22:15)
[2019-09-01] MEDS: HYDROCORTISONE SOD SUCCINATE INJ/PF 100 MG/2 ML SDV IV SCH (06:58)
[2019-09-01] MEDS: HEPARIN SOD (PORCINE) 5,000 UNIT/ML 1 ML VIAL SUBCUT SCH (06:59)
[2019-09-01] MEDS: CLINDAMYCIN 900 MG/D5W RTU 900 MG/50 ML RTUPB IV SCH ×3 (07:31→22:22)
[2019-09-01] MEDS: ASPIRIN 81 MG TABLET, CHEWABLE PO SCH (09:44)
[2019-09-01] MEDS: LACTOBACILLUS ACIDOPHILUS 250 MG TAB PO SCH ×2 (09:44→17:30)
[2019-09-01] MEDS: CEFTRIAXONE 2 GM/D5W RTU 2 GM/50 ML RTUPB IV SCH (09:44)
[2019-09-01] MEDS: SODIUM BICARBONATE 650 MG TABLET PO SCH ×2 (09:44→22:19)
[2019-09-01] MEDS: ASCORBIC ACID 500 MG TABLET PO SCH (09:44)
[2019-09-01] MEDS: FAMOTIDINE 20 MG TABLET PO SCH ×2 (09:44→22:19)
[2019-09-01] MEDS: ENOXAPARIN SODIUM INJ 30 MG/0.3 ML DISP.SYRIN SUBCUT SCH (10:59)
--- NOTE | 2019-09-01 15:48 | PDOC PROGRESS REPORT ---
Subjective Progress Note for:: 09/01/19 Subjective:: Patient talkative and interactive today. Curious that his potassium is high, sodium is low, and blood pressure has been running low enough to require midodrine. Also interesting that he has had such significant improvement on hydrocortisone. It is possible he has some degree of adrenal insufficiency of unclear etiology. Stop hydrocortisone and we will check ACT H/cortisol/renal/aldosterone tomorrow morning. If he is aldosterone deficient he may benefit from fludrocortisone long-term to help maintain his potassium and sodium in acceptable levels as well as keep his blood pressure normal. It is possible that the prophylactic heparin we have been giving him has caused him to develop a transient hypoaldosteronism so I have switched him to Lovenox which also has this possibility but could potentially have a different effect. Overall his right leg looks great and is healing very well. Second blood culture has been negative. Patient has no new specific complaints today. Reason For Visit: SEPSIS,CELLULITIS RIGHT LEG,ACUTE ON CHRONIC Physical Exam Vital Signs: Temp Pulse Resp BP Pulse Ox 97.5 F 65 20 109/72 100 09/01/19 08:00 09/01/19 14:00 09/01/19 08:00 09/01/19 08:00 09/01/19 08:00 Intake & Output 08/31/19 09/01/19 09/02/19 06:59 06:59 06:59 Intake Total 1302 950 100 Output Total 500 1050 Balance 802 -100 100 Weight 53.8 kg 51.4 kg General appearance: PRESENT: no acute distress, well-developed, well-nourished Head exam: PRESENT: atraumatic, normocephalic Eye exam: PRESENT: conjunctiva pink Mouth exam: PRESENT: moist Respiratory exam: PRESENT: clear to auscultation francia. ABSENT: rales, rhonchi, wheezes Cardiovascular exam: PRESENT: RRR. ABSENT: diastolic murmur, rubs, systolic murmur GI/Abdominal exam: PRESENT: normal bowel sounds, soft. ABSENT: distended, guarding, mass, organolmegaly, rebound, tenderness Extremities exam: PRESENT: +1 edema Neurological exam: PRESENT: alert, awake, oriented to person Psychiatric exam: PRESENT: appropriate affect, normal mood Skin exam: PRESENT: dry, warm, other - cellulitis healing well and erythema resolving Results Laboratory Results: 08/31/19 05:50 08/31/19 05:00 08/28/19 08/30/19 13:00 11:30 Creatine Kinase 108 NT-Pro-B Natriuret Pep [id number] H Impressions: Chest X-Ray 08/28/19 13:24 IMPRESSION: COPD with minimal right basilar atelectasis. No pneumonia. Head CT 08/28/19 13:24 IMPRESSION: MILD CHRONIC CHANGES OF ATROPHY AND MICROVASCULAR ISCHEMIA. NO ACUTE PROCESS. EVIDENCE OF ACUTE STROKE: NO. Lower Extremity CT 08/30/19 08:00 IMPRESSION: No evidence of abscess or osteomyelitis. Assessment and Plan - Diagnosis (1) Cellulitis of leg, right Is this a current diagnosis for this admission?: Yes Plan: 08/28/2019 Ulcers on the right leg and tender erythema on the right thigh. Will treat for cellulitis. Blood cultures have been obtained. He is a long-term resident of [facility]. I am going to start with Unasyn for broad-spectrum coverage and if he does not seem to get better I can increase the spectrum as well as covering for methicillin-resistant staph aureus. Invasive group A strep pyogenes now growing in both blood culture bottles. discussed with microbiology lab Started on appropriate antibiotics with ceftriaxone and clindamycin, notable improvement thereafter Mentation improvement gradually, suspect he has underlying dementia as well CT of right leg done; follow-up radiology read Consulted general surgery 08/31/2019 CT right leg did not show any cellulitis or osteomyelitis General surgery visited patient stated there is no surgical intervention Significant improvement in cellulitis overall with receding erythema, nontender today, white blood cell lower 09/01/2019 -Continued on antibiotics Repeat blood cultures negative (2) Sepsis Qualifiers: Sepsis type: sepsis due to unspecified organism Sepsis acute organ dysfunction status: with acute organ dysfunction Severe sepsis acute organ dysfunction type: acute liver failure Hepatic coma status: without hepatic coma Severe sepsis shock status: without septic shock Qualified Code(s): A41.9 - Sepsis, unspecified organism; R65.20 - Severe sepsis without septic shock; K72.00 - Acute and subacute hepatic failure without coma Is this a current diagnosis for this admission?: Yes Plan: 08/28/2019 The patient presents from [facility] with sepsis secondary to cellulitis in the right thigh. He has several ulcers on the right leg, as well as the dorsum of the left foot, in this is likely the entry point. I am holding his Aldactone, Lasix and Zaroxolyn temporarily. He will be getting fluids as his lactic acid is 4.7. I have serial lactic acids ordered for this evening. I am going to initiate a short course of hydrocortisone for physiologic stress. The patient has altered mental status from the sepsis and so I spoke to his nephew Parish ([phone]) who informed me of his CODE STATUS as well as providing some history. Sources RLE cellulitis and possibly UTI Held BP meds IV fluids given Lactic acid trending down 08/30/2021 Resolved (3) Altered mental state Qualifiers: Altered mental status type: unspecified Qualified Code(s): R41.82 - Altered mental status, unspecified Is this a current diagnosis for this admission?: Yes (4) Bilateral leg ulcer Is this a current diagnosis for this admission?: Yes (5) Congestive heart failure Qualifiers: Heart failure type: unspecified Heart failure chronicity: acute on chronic Qualified Code(s): I50.9 - Heart failure, unspecified Is this a current diagnosis for this admission?: Yes (6) Hyperbilirubinemia Is this a current diagnosis for this admission?: Yes (7) Hypokalemia Is this a current diagnosis for this admission?: Yes Plan: 08/28/2019 Supplement potassium. Continue to monitor with serial laboratory studies. 09/01/2019 Possible he has hypoaldosteronism/hypoadrenalism Ordered morning ACTH/cortisol/renin/aldosterone Hydrocortisone stopped, if above testing shows hypoaldosteronism he may benefit from fludrocortisone long-term Switch to heparin to Lovenox to see if this improves things given these drugs can both cause transient hypoaldosteronism; will hope that Lovenox does not have this effect on this particular patient (8) Leukocytosis Qualifiers: Leukocytosis type: bandemia Qualified Code(s): D72.825 - Bandemia Is this a current diagnosis for this admission?: Yes (9) Benign prostatic hyperplasia Qualifiers: Lower urinary tract symptom presence: symptoms present Is this a current diagnosis for this admission?: Yes (10) Hypertension Qualifiers: Hypertension type: essential hypertension Qualified Code(s): I10 - Essential (primary) hypertension Is this a current diagnosis for this admission?: Yes (11) Malnutrition Qualifiers: Malnutrition type: protein-calorie malnutrition Protein-calorie malnutrition severity: unspecified severity Qualified Code(s): E46 - Unspecified protein-calorie malnutrition Is this a current diagnosis for this admission?: Yes - Time Time Spent with patient: 35 or more minutes Medications reviewed and adjusted accordingly: Yes Within: within 72 hours - Inpatient Certification Medical Necessity: Significant Comorbidiites Make Outpatient Treatment Too Risky, Need Close Monitoring Due to Risk of Patient Decompensation, Need for IV Antibiotics, Risk of Complication if Not Cared For in Hospital, Risk of Diagnosis Which Will Require Inpatient Eval/Care/Monitoring
[2019-09-01] MEDS: ATORVASTATIN CALCIUM 10 MG TABLET PO SCH (22:19)
[2019-09-01] MEDS: LATANOPROST 0.005% OPH SOLN 2.5 ML OU SCH (22:20)
[2019-09-02] MEDS: SODIUM BICARBONATE 650 MG TABLET PO SCH (00:54)
[2019-09-02] MEDS: ATORVASTATIN CALCIUM 10 MG TABLET PO SCH ×2 (00:55→22:11)
[2019-09-02] MEDS: FAMOTIDINE 20 MG TABLET PO SCH ×3 (00:55→22:08)
[2019-09-02] MEDS ORDERED: LORAZEPAM INJ 2 MG/1 ML VIAL IV ONE (01:45)
[2019-09-02] MEDS: CLINDAMYCIN 900 MG/D5W RTU 900 MG/50 ML RTUPB IV SCH ×3 (06:19→22:11)
[2019-09-02] MEDS: MIDODRINE HCL 5 MG TABLET PO SCH ×3 (06:19→22:08)
[2019-09-02] MEDS: MAGNESIUM HYDROXIDE SUSP 30 ML UDCUP PO PRN (09:43)
[2019-09-02] MEDS: ENOXAPARIN SODIUM INJ 30 MG/0.3 ML DISP.SYRIN SUBCUT SCH (09:43)
[2019-09-02] MEDS: CEFTRIAXONE 2 GM/D5W RTU 2 GM/50 ML RTUPB IV SCH (09:43)
[2019-09-02] MEDS: LACTOBACILLUS ACIDOPHILUS 250 MG TAB PO SCH ×3 (09:43→17:41)
[2019-09-02] MEDS: ASPIRIN 81 MG TABLET, CHEWABLE PO SCH ×2 (09:44→10:15)
[2019-09-02] MEDS: ASCORBIC ACID 500 MG TABLET PO SCH ×2 (09:44→10:16)
--- NOTE | 2019-09-02 12:42 | PDOC PROGRESS REPORT ---
Subjective Progress Note for:: 09/02/19 Reason For Visit: SEPSIS,CELLULITIS RIGHT LEG,ACUTE ON CHRONIC 09/02/2019 Cellulitis right lower leg. Patient came from [facility] Physical Exam Vital Signs: Temp Pulse Resp BP Pulse Ox 97.3 F 47 L 16 97/65 L 100 09/02/19 11:06 09/02/19 11:06 09/02/19 11:06 09/02/19 11:06 09/02/19 11:06 Intake & Output 09/01/19 09/02/19 09/03/19 06:59 06:59 06:59 Intake Total 950 800 Output Total 1050 375 Balance -100 425 Weight 51.4 kg 51.4 kg General appearance: PRESENT: no acute distress Respiratory exam: PRESENT: clear to auscultation francia. ABSENT: rales, rhonchi, wheezes Cardiovascular exam: PRESENT: RRR. ABSENT: diastolic murmur, rubs, systolic murmur Neurological exam: PRESENT: alert, awake, oriented to person, oriented to place, oriented to time, oriented to situation, CN II-XII grossly intact. ABSENT: motor sensory deficit Psychiatric exam: PRESENT: appropriate affect, normal mood. ABSENT: homicidal ideation, suicidal ideation Results Laboratory Results: 08/31/19 05:50 08/31/19 05:00 08/28/19 08/30/19 13:00 11:30 Creatine Kinase 108 NT-Pro-B Natriuret Pep [id number] H Impressions: Chest X-Ray 08/28/19 13:24 IMPRESSION: COPD with minimal right basilar atelectasis. No pneumonia. Head CT 08/28/19 13:24 IMPRESSION: MILD CHRONIC CHANGES OF ATROPHY AND MICROVASCULAR ISCHEMIA. NO ACUTE PROCESS. EVIDENCE OF ACUTE STROKE: NO. Lower Extremity CT 08/30/19 08:00 IMPRESSION: No evidence of abscess or osteomyelitis. Assessment and Plan - Diagnosis (1) Altered mental state Qualifiers: Altered mental status type: unspecified Qualified Code(s): R41.82 - Altered mental status, unspecified Is this a current diagnosis for this admission?: Yes (2) Atrial fibrillation Is this a current diagnosis for this admission?: Yes (3) Cellulitis of leg, right Is this a current diagnosis for this admission?: Yes - Plan Summary Summary: According to the notes patient came into the hospital from [facility], [facility]. Patient came in with an apparent cellulitis of the right leg however CT showed no abscess or osteomyelitis. Patient is positive for group A beta hemolytic strep, this was a blood culture. Sensitivities show it to be sensitive to all antibiotics. Patient is currently on IV clindamycin, and Rocephin. Patient also on Lovenox instead of heparin On admission patient's white count was 16.2, couple days ago it was down to 10.3, I am going to repeat his CBC and chemistry panel today. Yesterday's potassium level was trending upward to 5.7 COVID-19 is pending. Admission urine showed 30 g of protein, large amount of blood, large amount of leukocytes. I did order a urine culture today. Agree with cardiology about holding off on anticoagulants for his atrial fibrillation. Once patient's COVID-19 results return can switch patient over to p.o. clindamycin in anticipation to go back to [facility] Also waiting on adrenal study results General surgery has signed off the case for his cellulitis Patient's vital signs reveal his blood pressure to vary between 96/50 up to 131/83. 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 Anticipate sending patient back to [facility] probably [facility] [place]. - Time Time Spent with patient: 35 or more minutes
[2019-09-02 14:47] LABS: HEMATOCRIT 34.2 % (37.9-51.0); HEMOGLOBIN 12.2 g/dL (13.5-17.0); MEAN CORPUSCULAR HGB CONC 35.8 g/dL (32.0-36.0); MEAN CORPUSCULAR VOLUME 92 fl (80-97); PLATELET COUNT 216 10^3/uL (150-450); RED BLOOD COUNT 3.71 10^6/uL (4.35-5.55); RED CELL DISTRIBUTION WIDTH 16.1 % (11.5-14.0); WHITE BLOOD COUNT 11.4 10^3/uL (4.0-10.5)
[2019-09-02 15:08] LABS: ABSOLUTE LYMPHOCYTES# (MANUAL) 2.5 10^3/uL (0.5-4.7); ABSOLUTE MONOCYTES # (MANUAL) 1.9 10^3/uL (0.1-1.4); BASOPHILS % (MANUAL) 0 % (0-2); EOSINOPHILS % (MANUAL) 0 % (0-6); LYMPHOCYTES % (MANUAL) 22 % (13-45); MONOCYTES % (MANUAL) 17 % (3-13); NUCLEATED RED BLOOD CELLS 1 /100 WBC (0); SEGMENTED NEUTROPHILS % (MAN) 61 % (42-78); TOTAL CELLS COUNTED 100
[2019-09-02 15:09] LABS: ANISOCYTOSIS 1+; PLATELET COMMENT ADEQUATE; POLYCHROMASIA SLIGHT
[2019-09-02 15:44] LABS: ANION GAP 11 (5-19); BLOOD UREA NITROGEN 44 mg/dL (7-20); CALCIUM 8.6 mg/dL (8.4-10.2); CARBON DIOXIDE 23 mmol/L (22-30); CHLORIDE 100 mmol/L (98-107); GLUCOSE 91 mg/dL (75-110); POTASSIUM 4.4 mmol/L (3.6-5.0)
[2019-09-02] MEDS: LATANOPROST 0.005% OPH SOLN 2.5 ML OU SCH (22:10)
[2019-09-03] MEDS: CLINDAMYCIN 900 MG/D5W RTU 900 MG/50 ML RTUPB IV SCH ×3 (05:33→22:14)
[2019-09-03] MEDS: MIDODRINE HCL 5 MG TABLET PO SCH ×3 (05:38→22:13)
[2019-09-03] MEDS: ASPIRIN 81 MG TABLET, CHEWABLE PO SCH (09:51)
[2019-09-03] MEDS: FAMOTIDINE 20 MG TABLET PO SCH ×2 (09:51→22:13)
[2019-09-03] MEDS: ASCORBIC ACID 500 MG TABLET PO SCH (09:51)
[2019-09-03] MEDS: CEFTRIAXONE 2 GM/D5W RTU 2 GM/50 ML RTUPB IV SCH (09:52)
[2019-09-03] MEDS: ENOXAPARIN SODIUM INJ 30 MG/0.3 ML DISP.SYRIN SUBCUT SCH (09:52)
--- NOTE | 2019-09-03 13:20 | PDOC TRANSFER SUMMARY ---
Impression - Admit/DC Date/PCP Admission Date/Primary Care Provider: 08/28/19 14:57 DUC SIERRA MD Discharge Date: 09/03/19 - Discharge Diagnosis (1) Altered mental state Is this a current diagnosis for this admission?: Yes (2) Atrial fibrillation Is this a current diagnosis for this admission?: Yes (3) Cellulitis of leg, right Is this a current diagnosis for this admission?: Yes (4) Acute on chronic diastolic CHF (congestive heart failure) Is this a current diagnosis for this admission?: Yes - Assessment Summary: According to the notes patient [facility] the [facility]. Patient came in with an apparent cellulitis of the right leg however CT showed no abscess or osteomyelitis. Patient is positive for group A beta hemolytic strep, this was a blood culture. Sensitivities show it to be sensitive to all antibiotics. Patient is currently on IV clindamycin, and Rocephin. Patient also on Lovenox instead of heparin On admission patient's white count was 16.2, couple days ago it was down to 10.3, I am going to repeat his CBC and chemistry panel today. Yesterday's potassium level was trending upward to 5.7 COVID-19 is pending. Admission urine showed 30 g of protein, large amount of blood, large amount of leukocytes. I did order a urine culture today. Agree with cardiology about holding off on anticoagulants for his atrial fibrillation. Once patient's COVID-19 results return can switch patient over to p.o. clindamycin in anticipation to go back to [facility] Also waiting on adrenal study results General surgery has signed off the case for his cellulitis Patient's vital signs reveal his blood pressure to vary between 96/50 up to 131/83. 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 Anticipate sending patient back to [facility] probably [facility]. 09/03/2019 No signs today temperature 98.1 pulse is low but this is normal for him in the upper 40s low 50s Pressures have also been running typically low anywhere from 93/72 and a high of 131/83. Average blood pressure appears to be about 110/60 Oxygen saturations 100% on room air WBC is normal 11.4 hemoglobin is stable 12.2 platelets stable 216,000 Sodium 133 potassium 4.4 BUN of 44 creatinine 0.98 calcium 8.6 Serum cortisol level yesterday morning normal 22.2 patient has aldosterone studies that are pending Microbiology showed blood cultures strep pyogenes group A, which appears to be sensitive to all antibiotics Urine culture showed no growth in 24 hours Second set of recent blood culture showed no growth in 4 days Patient IV antibiotics are being switched to p.o. clindamycin Patient will be on Midodrine 5 mg every 8 hours scheduled for low blood pressures Other pertinent medications as discussed in the discharge plan Patient will need to continue wet-to-dry dressing changes twice daily to the right lower extremity. Cellulitis has improved dramatically. And is awake and alert and seems oriented. - Additional Information Resuscitation Status: Full Code Discharge Diet: As Tolerated Discharge Activity: Activity As Tolerated Referrals: [facility] [Outside] Prescriptions: Clindamycin HCl [Cleocin 150 mg Capsule] 150 mg PO Q8H 7 Days #21 capsule Potassium Chloride 10 meq PO BID 30 Days #60 tablet.er Midodrine HCl [Proamatine 5 mg Tablet] 5 mg PO Q8 30 Days #90 tablet Home Medications: Ascorbic Acid [Vitamin C 500 mg Tablet] 500 mg PO DAILY 09/04/18 Calcium Carbonate [Tums Chewable 500 mg Tab.chew] 1,000 mg PO .AFTER MEALS 09/04/18 Latanoprost [Xalatan 0.005% Oph Soln 2.5 ml] 1 drop OU QHS 09/04/18 Atorvastatin Calcium [Lipitor 10 mg Tablet] 10 mg PO QHS #30 tablet 09/06/18 Famotidine [Pepcid 20 mg Tablet] 20 mg PO Q12 tablet 09/06/18 Acetaminophen [Tylenol 325 mg Tablet] 650 mg PO Q4HP PRN 08/28/19 Aspirin [Aspirin 81 mg Chewable Tablet] 81 mg PO DAILY 08/28/19 Furosemide [Lasix 20 mg Tablet] 20 mg PO DAILY 08/28/19 Magnesium Hydroxide [Milk of Magnesia 30 ml Udcup] 30 ml PO PRN PRN 08/28/19 Acetaminophen [Tylenol 325 mg Tablet] 650 mg PO Q4HP PRN tablet 09/03/19 Acetaminophen [Tylenol 650 mg Supp] 650 mg NC Q4HP PRN supp.rect 09/03/19 Clindamycin HCl [Cleocin 150 mg Capsule] 150 mg PO Q8H 7 Days #21 capsule 09/03/19 Midodrine HCl [Proamatine 5 mg Tablet] 5 mg PO Q8 30 Days #90 tablet 09/03/19 Potassium Chloride 10 meq PO BID 30 Days #60 tablet.er 09/03/19 History of Present Illiness History of Present Illness: YAMILE EDMOND is a 88 year old male Physical Exam Vital Signs: Temp Pulse Resp BP Pulse Ox 98.1 F 45 L 16 99/64 L 100 09/03/19 08:46 09/03/19 08:46 09/03/19 08:46 09/03/19 08:46 09/03/19 08:46 Intake & Output 09/02/19 09/03/19 09/04/19 06:59 06:59 06:59 Intake Total 800 830 Output Total 375 950 Balance 425 -120 Weight 51.4 kg 42.3 kg Results Laboratory Results: WBC 11.4 10^3/uL (4.0-10.5) H 09/02/19 13:20 RBC 3.71 10^6/uL (4.35-5.55) L 09/02/19 13:20 Hgb 12.2 g/dL (13.5-17.0) L 09/02/19 13:20 Hct 34.2 % (37.9-51.0) L 09/02/19 13:20 MCV 92 fl (80-97) 09/02/19 13:20 MCH 33.0 pg (27.0-33.4) 09/02/19 13:20 MCHC 35.8 g/dL (32.0-36.0) 09/02/19 13:20 RDW 16.1 % (11.5-14.0) H 09/02/19 13:20 Plt Count 216 10^3/uL (150-450) 09/02/19 13:20 Lymph % (Auto) Not Reportable 09/02/19 13:20 [place] % (Auto) Not Reportable 09/02/19 13:20 Eos % (Auto) Not Reportable 04/19/20 13:20 Baso % (Auto) Not Reportable 09/02/19 13:20 Absolute Neuts (auto) Not Reportable 09/02/19 13:20 Absolute Lymphs (auto) Not Reportable 09/02/19 13:20 Absolute Monos (auto) Not Reportable 09/02/19 13:20 Absolute Eos (auto) Not Reportable 09/02/19 13:20 Absolute Basos (auto) Not Reportable 09/02/19 13:20 Total Counted 100 09/02/19 13:20 Seg Neutrophils % Not Reportable 09/02/19 13:20 Seg Neuts % (Manual) 61 % (42-78) 09/02/19 13:20 Band Neutrophils % 2 % (3-5) L 08/30/19 04:47 Lymphocytes % (Manual) 22 % (13-45) 09/02/19 13:20 Atypical Lymphs % 1 % (0) 08/28/19 13:00 Monocytes % (Manual) 17 % (3-13) H 09/02/19 13:20 Eosinophils % (Manual) 0 % (0-6) 09/02/19 13:20 Basophils % (Manual) 0 % (0-2) 09/02/19 13:20 Abs Neuts (Manual) 7.0 10^3/uL (1.7-8.2) 09/02/19 13:20 Abs Lymphs (Manual) 2.5 10^3/uL (0.5-4.7) 09/02/19 13:20 Abs Monocytes (Manual) 1.9 10^3/uL (0.1-1.4) H 09/02/19 13:20 Absolute Eos (Manual) 0.0 10^3/uL (0.0-0.6) 09/02/19 13:20 Abs Basophils (Manual) 0.0 10^3/uL (0.0-0.2) 09/02/19 13:20 Nucleated RBCs 1 /100 WBC (0) 09/02/19 13:20 Toxic Vacuolation PRESENT 08/30/19 04:47 Platelet Comment ADEQUATE 09/02/19 13:20 Polychromasia SLIGHT 09/02/19 13:20 Poikilocytosis SLIGHT 08/30/19 04:47 Anisocytosis 1+ 09/02/19 13:20 Target Cells SLIGHT 08/30/19 04:47 Tear Drop Cells SLIGHT 08/29/19 04:23 PT 17.3 SEC (11.4-15.4) H 08/28/19 13:00 INR 1.40 08/28/19 13:00 VBG pH 7.43 (7.30-7.42) H 08/28/19 13:00 VBG pCO2 46.5 mmHg (35-63) 08/28/19 13:00 VBG HCO3 30.1 mmol/L (20-32) 08/28/19 13:00 VBG Base Excess 4.9 mmol/L 08/28/19 13:00 Sodium 133.6 mmol/L (137-145) L 09/02/19 15:00 Potassium 4.4 mmol/L (3.6-5.0) 09/02/19 15:00 Chloride 100 mmol/L (98-107) 09/02/19 15:00 Carbon Dioxide 23 mmol/L (22-30) 09/02/19 15:00 Anion Gap 11 (5-19) 09/02/19 15:00 BUN 44 mg/dL (7-20) H 09/02/19 15:00 Creatinine 0.98 mg/dL (0.52-1.25) 09/02/19 15:00 Est GFR ( Amer) > 60 (>60) 09/02/19 15:00 Est GFR (Non-Af Amer) Cancelled 09/02/19 13:20 Est GFR (MDRD) Non-Af > 60 (>60) 09/02/19 15:00 Glucose 91 mg/dL (75-110) 09/02/19 15:00 Lactic Acid 3.5 mmol/L (0.7-2.1) H 08/28/19 22:54 Calcium 8.6 mg/dL (8.4-10.2) 09/02/19 15:00 Magnesium 2.1 mg/dL (1.6-2.3) 08/31/19 05:00 Total Bilirubin 2.8 mg/dL (0.2-1.3) H 08/29/19 04:23 Direct Bilirubin 1.3 mg/dL (0.0-0.4) H 08/29/19 04:23 Neonat Total Bilirubin Not Reportable 08/29/19 04:23 Neonat Direct Bilirubin Not Reportable 08/29/19 04:23 Neonat Indirect Bili Not Reportable 08/29/19 04:23 AST 49 U/L (17-59) 08/29/19 04:23 ALT 21 U/L (<50) 08/29/19 04:23 Alkaline Phosphatase 138 U/L (38-126) H 08/29/19 04:23 Creatine Kinase 108 U/L (55-170) 08/30/19 11:30 NT-Pro-B Natriuret Pep 99426 pg/mL (<450) H 08/28/19 13:00 Total Protein 6.1 g/dL (6.3-8.2) L 08/29/19 04:23 Albumin 2.7 g/dL (3.5-5.0) L 08/29/19 04:23 EGFR Cancelled 09/02/19 13:20 Cortisol AM Sample 22.20 ug/dL (4.46-22.7) 09/02/19 06:04 Urine Color ARGENIS 08/29/19 05:44 Urine Appearance CLOUDY 08/29/19 05:44 Urine pH 5.0 (5.0-9.0) 08/29/19 05:44 Ur Specific [employer] 1.017 08/29/19 05:44 Urine Protein 30 mg/dL (NEGATIVE) H 08/29/19 05:44 Urine Glucose (UA) NEGATIVE mg/dL (NEGATIVE) 08/29/19 05:44 Urine Ketones NEGATIVE mg/dL (NEGATIVE) 08/29/19 05:44 Urine Blood LARGE (NEGATIVE) H 08/29/19 05:44 Urine Nitrite NEGATIVE (NEGATIVE) 08/29/19 05:44 Urine Bilirubin NEGATIVE (NEGATIVE) 08/29/19 05:44 Urine Urobilinogen 4.0 mg/dL (<2.0) H 08/29/19 05:44 Ur Leukocyte Esterase LARGE (NEGATIVE) H 08/29/19 05:44 Urine WBC (Auto) >182 /HPF 08/29/19 05:44 Urine RBC (Auto) 55 /HPF 08/29/19 05:44 U Hyaline Cast (Auto) 13 /LPF 08/29/19 05:44 Urine WBC Clumps FEW /HPF 08/29/19 05:44 Squamous Epi Cells Auto 1 /HPF 08/29/19 05:44 Urine Mucus (Auto) RARE /LPF 08/29/19 05:44 Urine Ascorbic Acid NEGATIVE (NEGATIVE) 08/29/19 05:44 COVID-19 Source NASOPHARYNGEAL 08/31/19 16:15 COVID-19 (NANCI) NOT DETECTED 08/31/19 16:15 08/28/19 13:00 NT-Pro-B Natriuret Pep [id number] H Impressions: Chest X-Ray 08/28/19 13:24 IMPRESSION: COPD with minimal right basilar atelectasis. No pneumonia. Head CT 08/28/19 13:24 IMPRESSION: MILD CHRONIC CHANGES OF ATROPHY AND MICROVASCULAR ISCHEMIA. NO ACUTE PROCESS. EVIDENCE OF ACUTE STROKE: NO. Lower Extremity CT 08/30/19 08:00 IMPRESSION: No evidence of abscess or osteomyelitis. Stroke Is this a Stroke Patient?: No Acute Heart Failure - Is this a Heart Failure Patient?: Yes Documentation of LVEF assessment?: Yes LVEF < 40%?: No- if no continue to question #3 a) Discharged on ACEI?: No, document contraindications Reason(s) not discharge on ACEI: Hyperkalemia, Hypotension b) Discharges on ARB?: No-document contraindications Reason(s) not discharged on ARB: Hyperkalemia, Hypotenson Reason(s) not discharged on ARNI: Hyperkalemia, Hypotension d) Discharged on evidence-based Beta ever(carvedilol, sustained release metoprolol succinate, or bisoprolol)?: No, document contraindications Reason(s) not discharged on Evidence-Based Beta Blockers (carvedilol, sustained released metoprolol succinate, or bisoprolol): Hypotension, Bradycardia e) For LVEF <35%, discharged on Aldosterone antagonist?: N/A (LVEF > or = 35%) 3. Anticoagulant therapy for permanect/persistent/paraoxysmal Afib or Aflutter: No, document contraindications Reason(s) not discharged on anticoagulant therapy for permanect/persistent/paraoxysmal Afib or Aflutter: Repeated falls/unsteady gait, Uncooperative/unreliable patient
--- NOTE | 2019-09-03 17:08 | Progress Note ---
Provider Note Provider Note: Patient did not get discharged to [facility] due to paperwork, and needing to set up isolation room at [facility] for his group A strep Discharge summary was dictated today.
[2019-09-03] MEDS: ATORVASTATIN CALCIUM 10 MG TABLET PO SCH (22:13)
[2019-09-03] MEDS: LATANOPROST 0.005% OPH SOLN 2.5 ML OU SCH (22:17)
[2019-09-04] MEDS: MIDODRINE HCL 5 MG TABLET PO SCH ×2 (05:08→15:44)
[2019-09-04] MEDS: CLINDAMYCIN 900 MG/D5W RTU 900 MG/50 ML RTUPB IV SCH ×2 (05:08→15:44)
[2019-09-04] MEDS: ENOXAPARIN SODIUM INJ 30 MG/0.3 ML DISP.SYRIN SUBCUT SCH (10:06)
[2019-09-04] MEDS: FAMOTIDINE 20 MG TABLET PO SCH (10:06)
[2019-09-04] MEDS: ASPIRIN 81 MG TABLET, CHEWABLE PO SCH (10:06)
[2019-09-04] MEDS: ASCORBIC ACID 500 MG TABLET PO SCH (10:06)
[2019-09-04] MEDS: CEFTRIAXONE 2 GM/D5W RTU 2 GM/50 ML RTUPB IV SCH (10:21)
--- NOTE | 2019-09-04 12:02 | PDOC PROGRESS REPORT ---
Subjective Progress Note for:: 09/04/19 Subjective:: 88 year old male who currently resides at [facility]. He has a past medical history of hypertension, ischemic stroke (2019) prostate cancer and congestive heart failure despite a normal ejection fraction by echocardiogram 3 years ago. Due to altered mental status the patient is unable to provide any history. Evidently the patient was transferred to the emergency department from [facility] for erythema and pain in the right thigh. He does have some ulcers on his right leg and left foot and with an elevated white blood cell count, decreased blood pressure, elevated total bilirubin and clear evidence of infection sepsis makes the most sense. He will be placed on IV antibiotics. We will need to be mindful of his heart failure with regard to fluid administration. I was able to obtain additional information from his nephew Parish ([phone]). 09/04/[id number]-bsez-old male admitted with right lower leg cellulitis and sepsis and he has history of congestive heart failure he is waiting for placement. Team to go back to [facility]. Presently there do not have an isolation room to accept the patient. Reason For Visit: SEPSIS,CELLULITIS RIGHT LEG,ACUTE ON CHRONIC Physical Exam Vital Signs: Temp Pulse Resp BP Pulse Ox 97.3 F 47 L 16 122/69 100 09/04/19 11:29 09/04/19 11:29 09/04/19 11:29 09/04/19 11:29 09/04/19 11:29 Intake & Output 09/03/19 09/04/19 09/05/19 06:59 06:59 06:59 Intake Total 830 1898 Output Total 950 1000 Balance -120 898 Weight 42.3 kg 52.1 kg General appearance: PRESENT: other - Elderly male comfortable in the bed not in distress. Head exam: PRESENT: atraumatic Eye exam: PRESENT: PERRLA Mouth exam: PRESENT: moist, tongue midline Teeth exam: PRESENT: poor dentation Neck exam: ABSENT: carotid bruit, JVD, lymphadenopathy, thyromegaly Respiratory exam: PRESENT: decreased breath sounds Pulses: PRESENT: normal dorsalis pedis pul GI/Abdominal exam: PRESENT: normal bowel sounds, soft. ABSENT: distended, guarding, mass, organolmegaly, rebound, tenderness Rectal exam: PRESENT: deferred Extremities exam: PRESENT: full ROM, other - Right lower leg cellulitis is resolving.. ABSENT: calf tenderness, clubbing, pedal edema Neurological exam: PRESENT: alert, awake Results Laboratory Results: 09/02/19 13:20 09/02/19 15:00 08/30/19 09:37 Blood Blood Culture - Final NO GROWTH IN 5 DAYS 08/30/19 09:47 Blood Blood Culture - Final NO GROWTH IN 5 DAYS 09/02/19 14:40 Clean Catch Midstream Urine Culture - Final NO GROWTH 2 DAYS 08/28/19 08/30/19 13:00 11:30 Creatine Kinase 108 NT-Pro-B Natriuret Pep 49486 H Impressions: Chest X-Ray 08/28/19 13:24 IMPRESSION: COPD with minimal right basilar atelectasis. No pneumonia. Head CT 08/28/19 13:24 IMPRESSION: MILD CHRONIC CHANGES OF ATROPHY AND MICROVASCULAR ISCHEMIA. NO ACUTE PROCESS. EVIDENCE OF ACUTE STROKE: NO. Lower Extremity CT 08/30/19 08:00 IMPRESSION: No evidence of abscess or osteomyelitis. Assessment and Plan - Diagnosis (1) Sepsis Qualifiers: Sepsis type: sepsis due to unspecified organism Sepsis acute organ dysfunction status: with acute organ dysfunction Severe sepsis acute organ dysfunction type: acute liver failure Hepatic coma status: without hepatic coma Severe sepsis shock status: without septic shock Qualified Code(s): A41.9 - Sepsis, unspecified organism; R65.20 - Severe sepsis without septic shock; K72.00 - Acute and subacute hepatic failure without coma Is this a current diagnosis for this admission?: Yes Plan: 08/28/2019 The patient presents from [facility] with sepsis secondary to cellulitis in the right thigh. He has several ulcers on the right leg, as well as the dorsum of the left foot, in this is likely the entry point. I am holding his Aldactone, Lasix and Zaroxolyn temporarily. He will be getting fluids as his lactic acid is 4.7. I have serial lactic acids ordered for this evening. I am going to initiate a short course of hydrocortisone for physiologic stress. The patient has altered mental status from the sepsis and so I spoke to his nephew Parish ([phone]) who informed me of his CODE STATUS as well as providing some history. Sources RLE cellulitis and possibly UTI Held BP meds IV fluids given Lactic acid trending down 08/30/2021 Resolved (2) Cellulitis of leg, right Is this a current diagnosis for this admission?: Yes Plan: 08/28/2019 Ulcers on the right leg and tender erythema on the right thigh. Will treat for cellulitis. Blood cultures have been obtained. He is a long-term resident of [facility]. I am going to start with Unasyn for broad-spectrum coverage and if he does not seem to get better I can increase the spectrum as well as covering for methicillin-resistant staph aureus. Invasive group A strep pyogenes now growing in both blood culture bottles. discussed with microbiology lab Started on appropriate antibiotics with ceftriaxone and clindamycin, notable improvement thereafter Mentation improvement gradually, suspect he has underlying dementia as well CT of right leg done; follow-up radiology read Consulted general surgery 08/31/2019 CT right leg did not show any cellulitis or osteomyelitis General surgery visited patient stated there is no surgical intervention Significant improvement in cellulitis overall with receding erythema, nontender today, white blood cell lower 09/01/2019 -Continued on antibiotics Repeat blood cultures negative 09/03/2019-admitted for right lower leg cellulitis. Repeat blood cultures are negative. CT of the right lower leg is negative for osteomyelitis. Surgical consult was done during the hospital stay. Presently on ceftriaxone and clindamycin. (3) Acute on chronic diastolic CHF (congestive heart failure) Is this a current diagnosis for this admission?: Yes Plan: 09/04/2019 echocardiogram was done during the hospital stay ejection fraction is 55 to 60%. Unable to assess left ventricular diastolic function. Left ventricular wall motion is normal. Right ventricular systolic function is mildly reduced. (4) Malnutrition Qualifiers: Malnutrition type: protein-calorie malnutrition Protein-calorie malnutrition severity: unspecified severity Qualified Code(s): E46 - Unspecified protein-calorie malnutrition Is this a current diagnosis for this admission?: Yes Plan: 08/28/2019 The patient's BMI is only 15.6. It is hard to know if he has experienced weight loss. Progress notes from August 2018 indicate a body weight of 78 kg. This would certainly indicate severe malnutrition. There is also weakness but I am not sure how much of this is due to his sepsis. Clearly there is malnutrition present. Based on his weight loss alone it is likely severe. 08/29/2019 Patient may be appropriate for hospice care in the near future (5) Leukocytosis Qualifiers: Leukocytosis type: bandemia Qualified Code(s): D72.825 - Bandemia Is this a current diagnosis for this admission?: Yes Plan: 08/28/2019 The patient had 3% bands with an elevated white blood cell count. This should respond to antibiotics as it is secondary to infection. 2119-patient came in with elevated WBC count on it is 11.4. Leukocytosis is resolving. (6) Hyperbilirubinemia Is this a current diagnosis for this admission?: No Plan: 08/28/2019 Elevated bilirubin secondary to sepsis. Will monitor serum chemistries. 09/04/19 -plan is to check serum bilirubin tomorrow. - Plan Summary Summary: According to the notes patient came into the hospital from long term facility, [facility]. Patient came in with an apparent cellulitis of the right leg however CT showed no abscess or osteomyelitis. Patient is positive for group A beta hemolytic strep, this was a blood culture. Sensitivities show it to be sensitive to all antibiotics. Patient is currently on IV clindamycin, and Rocephin. Patient also on Lovenox instead of heparin On admission patient's white count was 16.2, couple days ago it was down to 10.3, I am going to repeat his CBC and chemistry panel today. Yesterday's potassium level was trending upward to 5.7 COVID-19 is pending. Admission urine showed 30 g of protein, large amount of blood, large amount of leukocytes. I did order a urine culture today. Agree with cardiology about holding off on anticoagulants for his atrial fibrillation. Once patient's COVID-19 results return can switch patient over to p.o. clindamycin in anticipation to go back to [facility] Also waiting on adrenal study results General surgery has signed off the case for his cellulitis Patient's vital signs reveal his blood pressure to vary between 96/50 up to 131/83. 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 Anticipate sending patient back to [facility] [place] [facility] 09/03/2019 No signs today temperature 98.1 pulse is low but this is normal for him in the upper 40s low 50s Pressures have also been running typically low anywhere from 93/72 and a high of 131/83. Average blood pressure appears to be about 110/60 Oxygen saturations 100% on room air WBC is normal 11.4 hemoglobin is stable 12.2 platelets stable 216,000 Sodium 133 potassium 4.4 BUN of 44 creatinine 0.98 calcium 8.6 Serum cortisol level yesterday morning normal 22.2 patient has aldosterone studies that are pending Microbiology showed blood cultures strep pyogenes group A, which appears to be sensitive to all antibiotics Urine culture showed no growth in 24 hours Second set of recent blood culture showed no growth in 4 days Patient IV antibiotics are being switched to p.o. clindamycin Patient will be on Midodrine 5 mg every 8 hours scheduled for low blood pressures Other pertinent medications as discussed in the discharge plan Patient will need to continue wet-to-dry dressing changes twice daily to the right lower extremity. Cellulitis has improved dramatically. And is awake and alert and seems oriented.
[2019-09-04 14:47] LABS: RENIN ACTIVITY 5.555 ng/mL/hr (0.167-5.38)
[2019-09-04 14:50] VITALS: BP 114/63
== END 2019-09-04 18:30 | DRG 871 ==
LOC: ER 12:37 → EH 14:57 → 4S 15:50
PROVIDERS: ADMIT Hospitalist; ATTEND Internal Medicine
DX: A40.0 Sepsis due to streptococcus, group A (principal); I50.33 Acute on chronic diastolic (congestive) heart failure; L03.115 Cellulitis of right lower limb; I13.0 Hypertensive heart and chronic kidney disease with heart failure and stage 1 through stage 4 chronic kidney disease, or unspecified chronic kidney disease; E46 Unspecified protein-calorie malnutrition; Z68.1 Body mass index [BMI] 19.9 or less, adult; K72.90 Hepatic failure, unspecified without coma; N18.9 Chronic kidney disease, unspecified; Z86.73 Personal history of transient ischemic attack (TIA), and cerebral infarction without residual deficits; I48.91 Unspecified atrial fibrillation; Z85.46 Personal history of malignant neoplasm of prostate; E78.5 Hyperlipidemia, unspecified; J44.9 Chronic obstructive pulmonary disease, unspecified; F03.90 Unspecified dementia, unspecified severity, without behavioral disturbance, psychotic disturbance, mood disturbance, and anxiety; Z79.82 Long term (current) use of aspirin; L97.529 Non-pressure chronic ulcer of other part of left foot with unspecified severity; L97.519 Non-pressure chronic ulcer of other part of right foot with unspecified severity; E87.6 Hypokalemia; N40.0 Benign prostatic hyperplasia without lower urinary tract symptoms
CPT/HCPCS: 36415; 70450; 71045; 80048; 80053; 80076; 81001; 82024; 82088; 82533; 82550; 82803; 83605; 83735; 83880; 84244; 85025; 85610; 87040; 87077; 87086; 87150; 87186; 87635; 93005; 93010; 93306; 96365; 99285; C1758; J0295; J0696; J1644; J1650; J1720; J2060; J3480; J3490; J7030; J7040; J7120; P9047

== ENCOUNTER 2019-10-26 12:07 | Emergency (ER) | payer MEDICARE, MEDICAID ==
--- NOTE | 2019-10-26 13:24 | RADIOLOGY REPORT (SQ) ---
EXAM DESCRIPTION: CHEST SINGLE VIEW IMAGES COMPLETED DATE/TIME: 10/26/2019 1:07 pm REASON FOR STUDY: chest pain COMPARISON: 08/28/2019. EXAM PARAMETERS: NUMBER OF VIEWS: One view. TECHNIQUE: Single frontal radiographic view of the chest acquired. RADIATION DOSE: NA LIMITATIONS: None. FINDINGS: LUNGS AND PLEURA: Bilateral pleural effusions with airspace disease in the lung bases, par ticularly on the right. MEDIASTINUM AND HILAR STRUCTURES: No masses. Contour normal. HEART AND VASCULAR STRUCTURES: Cardiomegaly. BONES: No acute findings. HARDWARE: None in the chest. OTHER: No other significant finding. IMPRESSION: CARDIOMEGALY. BILATERAL PLEURAL EFFUSIONS, RIGHT GREATER THAN LEFT. AIRSPACE DISEASE I N THE RIGHT LUNG BASE IS PROBABLY DUE TO ATELECTASIS ALTHOUGH CANNOT EXCLUDE INFILTRATE SECONDARY TO PNEUMONIA. TECHNICAL DOCUMENTATION: JOB ID: [id number] 2010 [employer]- All Rights Reserved Reading location - IP/workstation name: [email or web address]
[2019-10-26 15:28] LABS: HEMATOCRIT 44.3 % (37.9-51.0); MEAN CORPUSCULAR HEMOGLOBIN 31.6 pg (27.0-33.4); MEAN CORPUSCULAR HGB CONC 33.9 g/dL (32.0-36.0); MEAN CORPUSCULAR VOLUME 93 fl (80-97); RED BLOOD COUNT 4.76 10^6/uL (4.35-5.55); RED CELL DISTRIBUTION WIDTH 18.2 % (11.5-14.0); WHITE BLOOD COUNT 5.8 10^3/uL (4.0-10.5)
[2019-10-26 15:37] LABS: ALBUMIN 3.1 g/dL (3.5-5.0); ALKALINE PHOSPHATASE 234 U/L (38-126); ANION GAP 13 (5-19); ASPARTATE AMINO TRANSFERASE 152 U/L (17-59); BILIRUBIN,DIRECT 2.5 mg/dL (0.0-0.4); BILIRUBIN,TOTAL 4.6 mg/dL (0.2-1.3); BLOOD UREA NITROGEN 37 mg/dL (7-20); CALCIUM 8.8 mg/dL (8.4-10.2); CARBON DIOXIDE 25 mmol/L (22-30); CHLORIDE 99 mmol/L (98-107); CREATINE KINASE 173 U/L (55-170); GLUCOSE 93 mg/dL (75-110); POTASSIUM 3.6 mmol/L (3.6-5.0); TOTAL PROTEIN 6.9 g/dL (6.3-8.2)
[2019-10-26 15:49] LABS: CREATINE KINASE MB 4.52 ng/mL (<4.55)
[2019-10-26 15:51] LABS: PLATELET COUNT 81 10^3/uL (150-450)
[2019-10-26 15:53] LABS: TROPONIN I 0.311 ng/mL
[2019-10-26 15:54] LABS: ABSOLUTE LYMPHOCYTES# (MANUAL) 0.4 10^3/uL (0.5-4.7); ABSOLUTE MONOCYTES # (MANUAL) 0.4 10^3/uL (0.1-1.4); ANISOCYTOSIS 1+; BASOPHILS % (MANUAL) 0 % (0-2); EOSINOPHILS % (MANUAL) 0 % (0-6); LYMPHOCYTES % (MANUAL) 7 % (13-45); MONOCYTES % (MANUAL) 7 % (3-13); NUCLEATED RED BLOOD CELLS 4 /100 WBC (0); PLATELET COMMENT DECREASED; SEGMENTED NEUTROPHILS % (MAN) 86 % (42-78); TOTAL CELLS COUNTED 100
[2019-10-26 15:55] LABS: PLATELET LARGE PRESENT; POIKILOCYTOSIS SLIGHT; TARGET CELLS SLIGHT; TEAR DROP CELLS SLIGHT
[2019-10-26] MEDS ORDERED: FUROSEMIDE INJ/PF 40 MG/4 ML SDV IV ONE (16:43)
--- NOTE | 2019-10-26 16:46 | RADIOLOGY REPORT (SQ) ---
EXAM DESCRIPTION: CHEST SINGLE VIEW IMAGES COMPLETED DATE/TIME: 10/26/2019 4:10 pm REASON FOR STUDY: Central Line Placement COMPARISON: 10/26/2019 EXAM PARAMETERS: NUMBER OF VIEWS: One view. TECHNIQUE: Single frontal radiographic view of the chest acquired. RADIATION DOSE: NA LIMITATIONS: None. FINDINGS: LUNGS AND PLEURA: Considerable opacification in the right base with mild opacification the left base. MEDIASTINUM AND HILAR STRUCTURES: No masses. Contour normal. HEART AND VASCULAR STRUCTURES: Cardiomegaly. No neftali pulmonary edema. BONES: No acute findings. HARDWARE: Right internal jugular catheter has its tip near the right atrium. OTHER: No other significant finding. IMPRESSION: Cardiomegaly with no neftali pulmonary edema. Right pleural effusion. Cannot exclude a p neumonia in either lung base. TECHNICAL DOCUMENTATION: JOB ID: [id number] 2010 [employer]- All Rights Reserved Reading location - IP/workstation name: [email or web address]
[2019-10-26] MEDS ORDERED: ASPIRIN 81 MG TABLET, CHEWABLE PO ONE (16:49)
[2019-10-26] MEDS ORDERED: NITROGLYCERIN 2% OINTMENT 1 GM PACKET TP ONE (16:50)
[2019-10-26] MEDS ORDERED: CEFEPIME 2 GM/D5W RTU 2 GM/50 ML RTUPB IV ONE (16:52)
[2019-10-26] MEDS: MAGNESIUM SULFATE/D5W 1 GM/100 ML RTUPB IV SCH ×2 (16:59→18:07)
[2019-10-26 17:33] LABS: INTERNATIONAL RATION (INR) 2.13; PROTHROMBIN TIME 24.2 SEC (11.4-15.4)
[2019-10-26 17:34] LABS: PARTIAL THROMBOPLASTIN TIME 36.2 SEC (23.5-35.8)
--- NOTE | 2019-10-26 18:41 | RADIOLOGY REPORT (SQ) ---
EXAM DESCRIPTION: VENOUS UNILATERAL UPPER IMAGES COMPLETED DATE/TIME: 10/26/2019 6:24 pm REASON FOR STUDY: right upper ext swelling COMPARISON: None. TECHNIQUE: Dynamic and static swanson scale and color images acquired of the right arm venous system. S elected spectral images acquired with additional compression and augmentation maneuvers. The contrala teral subclavian vein and internal jugular vein were also imaged. Images stored on PACS. LIMITATIONS: None. FINDINGS: INTERNAL JUGULAR VEIN: Normal phasicity, compression, augmentation. No visualized echogeni c material on swanson scale. No defects on color images. Comparison opposite side normal. SUBCLAVIAN VEIN: Normal compression, augmentation. No visualized echogenic material on swanson scale. No defects on color images. AXILLARY VEIN: Normal compression, augmentation. No visualized echogenic material on swanson scale. No d efects on color images. BRACHIAL VEIN: Normal compression, augmentation. No visualized echogenic material on swanson scale. No d efects on color images. BASILIC VEIN: Not able to assess because of the positioning. CEPHALIC VEIN: Normal compression, augmentation. No visualized echogenic material on swanson scale. No d efects on color images. OTHER: No other significant finding. CONTRALATERAL SUBCLAVIAN VEIN AND INTERNAL JUGULAR VEIN: Normal phasicity, compression and augmentation. No visualized echogenic material on swanson scale. No de fects on color images. IMPRESSION: NO EVIDENCE DVT OR SVT IN THE RIGHT ARM. TECHNICAL DOCUMENTATION: JOB ID: [id number] 2010 [employer]- All Rights Reserved Reading location - IP/workstation name: [email or web address]
--- NOTE | 2019-10-26 18:43 | RADIOLOGY REPORT (SQ) ---
EXAM DESCRIPTION: VENOUS BILATERAL LOWER IMAGES COMPLETED DATE/TIME: 10/26/2019 6:24 pm REASON FOR STUDY: bilateral leg edema COMPARISON: None. TECHNIQUE: Dynamic and static swanson scale and color images acquired of both lower extremity venous sy stems. Selected spectral images acquired with additional compression and augmentation maneuvers. Imag es stored on PACS. LIMITATIONS: None. FINDINGS: RIGHT LEG COMMON FEMORAL AND FEMORAL: There appears to be chronic thrombus in the common femoral vein at the sa phenofemoral junction POPLITEAL: Normal compression and augmentation. No visualized echogenic material on swanson scale. No de fects on color images. CALF VESSELS: Normal compression and augmentation. No visualized echogenic material on swanson scale. No defects on color image. GSV AND SSV: Normal compression. No visualized echogenic material on swanson scale. No defects on color images. ANY DEEP VENOUS INSUFFICIENCY: Not evaluated. ANY EVIDENCE OF POPLITEAL CYST: No. OTHER: No other significant finding. LEFT LEG COMMON FEMORAL AND FEMORAL: Is acute nonocclusive thrombus in the proximal superficial femoral vein a nd the deep femoral vein. POPLITEAL: Normal compression and augmentation. No visualized echogenic material on swanson scale. No de fects on color images. CALF VESSELS: Normal compression and augmentation. No visualized echogenic material on swanson scale. No defects on color images. GSV AND SSV: Normal compression. No visualized echogenic material on swanson scale. No defects on color images. ANY DEEP VENOUS INSUFFICIENCY: Not evaluated. ANY EVIDENCE POPLITEAL CYST: No. OTHER: No other significant finding. 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 TECHNICAL DOCUMENTATION: JOB ID: [id number] 2010 [employer]- All Rights Reserved Reading location - IP/workstation name: [email or web address]
--- NOTE | 2019-10-26 19:18 | EKG REPORT ---
SEVERITY:- DEFECTIVE ECG - ATRIAL FIBRILLATION WITH SEVERE BRADYCARDIA.SEVERE BASELINE ARTIFACT. RUN OF VENTRICULAR PREMATURE COMPLEXES LOW VOLTAGE IN FRONTAL LEADS CONSIDER ANTERIOR INFARCT NONSPECIFIC T ABNORMALITIES, ANT-LAT LEADS : Confirmed by: Emily Nunez MD 26-Oct-2019 19:17:25
[2019-10-26 19:33] LABS: D-DIMER > 20.00 ug/mL (0.00-0.50)
[2019-10-26 19:47] LABS: APPEARANCE,URINE SLIGHTLY-CLOUDY; BILIRUBIN,URINE NEGATIVE (NEGATIVE); COLOR,URINE AMBER; GLUCOSE, URINE NEGATIVE (NEGATIVE); KETONES,URINE NEGATIVE (NEGATIVE); LEUKOCYTE ESTERASE,URINE MODERATE (NEGATIVE); NITRITE,URINE NEGATIVE (NEGATIVE); PROTEIN,URINE 30 mg/dL (NEGATIVE); URINE SPECIFIC GRAVITY 1.016
[2019-10-26] MEDS ORDERED: HEPARIN SODIUM,PORCINE/D5W 25,000 UNIT/250 ML RTUINJ IV PRN (19:52)
[2019-10-26] MEDS ORDERED: HEPARIN SOD (PORCINE) 1,000 UNIT/ML 10 ML VIAL IV ONE (19:58)
[2019-10-26] MEDS ORDERED: HEPARIN SODIUM,PORCINE/D5W 25,000 UNIT/250 ML RTUINJ IV ONE (20:02)
--- NOTE | 2019-10-26 20:05 | ER Document Report ---
Entered by REJI TATE SCRIBE 10/26/19 [id number] Acting as scribe for:STEFANIA BRAR MD ED General - General Stated Complaint: BLOOD PRESSURE ISSUES Primary Care Provider: DUC SIERRA MD [Primary Care Provider] - Follow up as needed Information source: Patient Notes: This 88-year-old male with dementia, COPD and CHF presents to the emergency department with increased bilateral arm swelling and bradycardia. Patient is originally from [facility]. EMS reports that [facility] due to an increase in swelling of the patient's arms. EMS states that [facility] sent the patient to this emergency department due to patient having a possible junctional rhythm. Patient states, "I'm alright" when asked why he is at the emergency department. TRAVEL OUTSIDE OF THE [place] IN LAST 30 DAYS: No - Related Data Allergies/Adverse Reactions: adhesive tape Adverse Reaction (Intermediate, Verified 10/26/19 13:05) SKIN IRRITATION Past Medical History - General Information source: Patient - Social History Smoking Status: Never Smoker Cigarette use (# per day): No Chew tobacco use (# tins/day): No Lives with: [facility] Family History: None, Other - Unobtainable. Patient adopted - Past Medical History Cardiac Medical History: Reports: Hx Atrial Fibrillation, Hx Congestive Heart Failure, Hx Coronary Artery Disease, Hx Hypercholesterolemia, Hx Hypertension Pulmonary Medical History: Reports: Hx COPD Renal/ Medical History: Reports: Hx Benign Prostatic Hyperplasia, Hx Kidney Stones Psychiatric Medical History: Reports: Hx Dementia Past Surgical History: Reports: Other - Prostate surgery - Immunizations Hx Diphtheria, Pertussis, Tetanus Vaccination: No Review of Systems - Review of Systems -: Yes ROS unobtainable due to patient's medical condition Physical Exam - Vital signs Vitals: Pulse Ox 96 10/26/19 12:09 - Notes Notes: Physical Exam: General: Alert. Demented and quiet. HEENT: Normocephalic. Atraumatic. PERRL. Extraocular movements intact. Oropharynx clear. Neck: Supple. Non-tender. Respiratory: No respiratory distress. Diminished breath sounds in the bases with a baseline expiratory wheeze bilaterally. Cardiovascular: Bradycardic and normal rhythm. Abdominal: Normal Inspection. Non-tender. No distension. Normal Bowel Sounds. Back: No gross abnormalities. Extremities: Moves all four extremities. Upper extremities: Normal ROM. Right arm has edema. Non-tender and no erythema or warmth. Edema is greatest in hand. No signs of injury Lower extremities: 1+ pitting edema bilaterally. Normal ROM. Right lower extremity has superficial 20 cm circumferential skin irritation. 20 cm above the ankle greatest in the front than in the back. Neurological: Demented. Normal speech. Skin: Warm. Dry. Normal color. Course - Re-evaluation Re-evalutation: 10/26/19 19:47 Patient has a bradycardia junctional rhythm in the 43-45 range. Hemodynamically stable without hypotension or chest pain. Patient has a history of chronic A. fib. - Vital Signs Vital signs: Temp Pulse Resp BP Pulse Ox 97.2 F 56 L 15 123/67 96 10/26/19 13:04 10/26/19 13:04 10/26/19 19:01 10/26/19 19:00 10/26/19 18:59 Vital signs stable except for bradycardic rhythm in the neighborhood of 43-45 on this tracing vital signs pulse was 56. - Laboratory Result Diagrams: 10/26/19 15:05 10/26/19 15:05 Laboratory results interpreted by me: 10/26/19 10/26/19 10/26/19 15:05 15:05 15:05 RDW 18.2 H Plt Count 81 L Seg Neuts % (Manual) 86 H Lymphocytes % (Manual) 7 L Abs Lymphs (Manual) 0.4 L PT APTT D-Dimer Sodium 136.8 L BUN 37 H Creatinine 1.29 H Est GFR (MDRD) Non-Af 53 L Total Bilirubin 4.6 H Direct Bilirubin 2.5 H AST 152 H ALT 67 H Alkaline Phosphatase 234 H Creatine Kinase 173 H NT-Pro-B Natriuret Pep 8510 H Albumin 3.1 L 10/26/19 17:12 RDW Plt Count Seg Neuts % (Manual) Lymphocytes % (Manual) Abs Lymphs (Manual) PT 24.2 H APTT 36.2 H D-Dimer > 20.00 H* Sodium BUN Creatinine Est GFR (MDRD) Non-Af Total Bilirubin Direct Bilirubin AST ALT Alkaline Phosphatase Creatine Kinase NT-Pro-B Natriuret Pep Albumin There is an elevation in BNP as well as an elevation and troponin level. Patient also has a low magnesium. An elevated d-dimer greater than 20. - Diagnostic Test Radiology reviewed: Image reviewed, Reports reviewed Radiology results interpreted by me: 10/26/19 19:59 Chest x-ray shows cardiomegaly bilateral pleural effusions right greater than left questionable minimal pneumonitis in the bases. Repeat chest x-ray shows central line placement no pneumothorax tip of the central lines in the left atrium. 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 Venous Doppler of right upper extremity shows no DVT present. - EKG Interpretation by Me Additional EKG results interpreted by me: 10/26/19 20:01 Twelve-lead EKG shows atrial fibrillation with a ventricular rate of 43. No acute ST-T wave changes. Procedures - Central Line Right Internal jugular Consent obtained: Yes Central line pre-insertion: Sterile PPE donned, Chloraprep applied, Sterile drapes applied Central line size (Fr.): 7 Central line lumen type: Triple Ultrasound guided: Yes CM at insertion site: 17 Line secured with sutures: Yes Central line post-insertion: Blood return from lumens, Biopatch applied, Sutured, Sterile dressing applied Number of attempts: 2 Complications: No Notes: 10/26/19 16:08 Preliminary post central line placement chest x-ray no pneumothorax no complications from procedure. Critical Care Note - Critical Care Note Total time excluding time spent on procedures (mins): 69 - Management of metabolic derangement of low magnesium, significant bradycardia with rates in the 40s ; congestive heart failure with an elevated troponin. Bilateral pleural effusions. Bilateral lower edema with DVT acute in the left lower leg. Discussion with costing manager and transfer team at the receiving hospital. Treatment of congestive heart failure and elevated troponin. Continuous cardiac monitoring of bradycardia with external pacer pads present. Discharge - Discharge Clinical Impression: Atrial fibrillation, Bradycardia, Acute deep vein thrombosis (DVT) of left lower extremity, Cellulitis of right lower extremity, Congestive heart failure Condition: Critical Disposition: [facility] Referrals: DUC SIERRA MD [Primary Care Provider] - Follow up as needed I personally performed the services described in the documentation, reviewed and edited the documentation which was dictated to the scribe in my presence, and it accurately records my words and actions.
[2019-10-26] MEDS ORDERED: HEPARIN SOD (PORCINE) 1,000 UNIT/ML 10 ML VIAL IV PRN (22:53)
[2019-10-27 01:07] VITALS: BP 107/92
== END 2019-10-26 20:30 | disposition short-term general hospital (02) ==
LOC: ER 12:07
PROC: 05HM33Z Insertion of Infusion Device into Right Internal Jugular Vein, Percutaneous Approach (ICD-10-PCS; principal; 2019-10-26)
DX: I82.4Z2 Acute embolism and thrombosis of unspecified deep veins of left distal lower extremity (principal); L03.115 Cellulitis of right lower limb; I11.0 Hypertensive heart disease with heart failure; I50.9 Heart failure, unspecified; F03.90 Unspecified dementia, unspecified severity, without behavioral disturbance, psychotic disturbance, mood disturbance, and anxiety; M79.89 Other specified soft tissue disorders; I48.91 Unspecified atrial fibrillation; R00.1 Bradycardia, unspecified; J44.9 Chronic obstructive pulmonary disease, unspecified
CPT/HCPCS: 93005; 96376; 99291; 96375; 96365; 96366; 96367; 96368; 36415; 82553; 82550; 83735; 85025; 85610; 85730; 80053; 81001; 84484; 85379; 83880; 93971; 93970; 71045; 93010; 36556; J1644 ×2; A9270 ×2; J1940; J3475; J0692